=== PATIENT | male | born 1960 | race Caucasian/White ===

== ENCOUNTER 2016-08-20 00:23 | Observation (INO) | payer OTHER ==
[2016-08-20] VITALS (17 sets, daily range): BP systolic 130–163; BP diastolic 86–106
[~2016-08-20] VITALS: Ht 182.9 cm; Wt 100.8 kg
[~2016-08-20 00:23] MED LIST: ASP81TEC PO; ATOR10TA66 PO; ATOR80TA PO; CYCL10TA9 PO; DIGO250T PO; DILT180C PO; DULA0.75 SQ; ENXP80I.8 SC; EZET1TAB27 PO; HYDR-3812 PO; LISI10TA PO; LISI20TA PO; METF-380 PO; METO25TA PO; NTR.4SL SL; OMEG-12 PO; OXYC-197 PO; RNT150T PO; WRF5T PO
[2016-08-20] MEDS ORDERED: TRAM50TA2 PO (00:31)
[2016-08-20] MEDS ORDERED: CITA20TA7 PO (00:31)
[2016-08-20] MEDS ORDERED: NS IV 1000 ML 1,000 ML IV ONE (00:35)
[2016-08-20 00:40] LABS: BASOPHILS % (AUTO) 0 % (0-10); EOSINOPHILS # (AUTO) 0.1 10^3/uL (0.0-0.3); EOSINOPHILS % (AUTO) 1 % (0-10); LYMPHOCYTES # (AUTO) 1.8 X 10^3 (1.0-4.0); LYMPHOCYTES % (AUTO) 13 % (12-44); MEAN CORPUSCULAR HEMOGLOBIN 29 PG (25-34); MEAN CORPUSCULAR HGB CONC 33 G/DL (32-36); MEAN CORPUSCULAR VOLUME 88 FL (80-99); MEAN PLATELET VOLUME 9.9 FL (7.4-10.4); MONOCYTES # (AUTO) 0.6 X 10^3 (0.0-1.0); MONOCYTES % (AUTO) 4 % (0-12); NEUTROPHILS # (AUTO) 11.4 X 10^3 (1.8-7.8); NEUTROPHILS % (AUTO) 82 % (42-75); PLATELET COUNT 318 10^3/uL (130-400); RED BLOOD COUNT 5.38 10^6/uL (4.35-5.85); RED CELL DISTRIBUTION WIDTH 13.1 % (10.0-14.5)
[2016-08-20 00:54] LABS: ALANINE AMINOTRANSFERASE 36 U/L (0-55); ALBUMIN 4.2 G/DL (3.2-4.5); ANION GAP 13 MMOL/L (5-14); ASPARTATE AMINO TRANSFERASE 25 U/L (5-34); BILIRUBIN,TOTAL 0.6 MG/DL (0.1-1.0); BLOOD UREA NITROGEN 17 MG/DL (7-18); BUN/CREATININE RATIO 17; CALCIUM 9.1 MG/DL (8.5-10.1); CARBON DIOXIDE 22 MMOL/L (21-32); CHLORIDE 100 MMOL/L (98-107); CREATININE SERUM 0.98 MG/DL (0.60-1.30); GFR ESTIMATED > 60; GLUCOSE 247 MG/DL (70-105); POTASSIUM 3.8 MMOL/L (3.6-5.0); SALICYLATE < 5.0 MG/DL (5.0-20.0); SODIUM 135 MMOL/L (135-145); TOTAL PROTEIN 7.8 G/DL (6.4-8.2)
[2016-08-20 00:57] LABS: ACETAMINOPHEN < 10 UG/ML (10-30); ALCOHOL < 10 MG/DL (<10)
[2016-08-20 01:45] LABS: BILIRUBIN,URINE NEGATIVE (NEGATIVE); KETONES,URINE 3+ (NEGATIVE); LEUKOCYTE ESTERASE ,URINE 3+ (NEGATIVE); NITRITE,URINE NEGATIVE (NEGATIVE); PH,URINE 6 (5-9); PROTEIN,URINE 2+ (NEGATIVE); UROBILINOGEN,URINE 1 MG/DL (NORMAL)
[2016-08-20] MEDS ORDERED: 1/2 NS IV SOLUTION 1,000 ML IV ONE (02:18)
[2016-08-20] MEDS ORDERED: 1/2 NS IV SOLUTION 1,000 ML IV SCH (02:45)
[2016-08-20] MEDS ORDERED: cefTRIAXone 1 GM (ROCEPHIN) VIAL ONE (02:54)
[2016-08-20] MEDS ORDERED: NS (IVPB) 50 ML ONE (02:55)
[2016-08-20] MEDS ORDERED: cefTRIAXone INJECTION 1,000 MG in NS (IVPB) 50 ML IV SCH (03:00)
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
[2016-08-20 04:26] LABS: BASOPHILS % (AUTO) 0 % (0-10); EOSINOPHILS % (AUTO) 0 % (0-10); LYMPHOCYTES # (AUTO) 1.7 X 10^3 (1.0-4.0); LYMPHOCYTES % (AUTO) 14 % (12-44); MEAN CORPUSCULAR HEMOGLOBIN 29 PG (25-34); MEAN CORPUSCULAR HGB CONC 33 G/DL (32-36); MEAN CORPUSCULAR VOLUME 88 FL (80-99); MEAN PLATELET VOLUME 10.1 FL (7.4-10.4); MONOCYTES # (AUTO) 0.7 X 10^3 (0.0-1.0); MONOCYTES % (AUTO) 6 % (0-12); NEUTROPHILS # (AUTO) 9.9 X 10^3 (1.8-7.8); NEUTROPHILS % (AUTO) 80 % (42-75); PLATELET COUNT 287 10^3/uL (130-400); RED BLOOD COUNT 4.97 10^6/uL (4.35-5.85); RED CELL DISTRIBUTION WIDTH 12.8 % (10.0-14.5); WHITE BLOOD COUNT 12.3 10^3/uL (4.3-11.0)
[2016-08-20 04:45] LABS: ALANINE AMINOTRANSFERASE 32 U/L (0-55); ALBUMIN 3.7 G/DL (3.2-4.5); ANION GAP 10 MMOL/L (5-14); ASPARTATE AMINO TRANSFERASE 21 U/L (5-34); BILIRUBIN,TOTAL 0.5 MG/DL (0.1-1.0); BLOOD UREA NITROGEN 17 MG/DL (7-18); BUN/CREATININE RATIO 21; CALCIUM 8.5 MG/DL (8.5-10.1); CARBON DIOXIDE 22 MMOL/L (21-32); CHLORIDE 102 MMOL/L (98-107); GFR ESTIMATED > 60; GLUCOSE 211 MG/DL (70-105); MAGNESIUM 1.9 MG/DL (1.8-2.4); PHOSPHORUS 2.5 MG/DL (2.3-4.7); POTASSIUM 4.2 MMOL/L (3.6-5.0); SODIUM 134 MMOL/L (135-145); TOTAL PROTEIN 6.8 G/DL (6.4-8.2)
[2016-08-20] MEDS: inSUlin (REGULAR) HUMAN 1 UNIT/0.01 ML (CHARGE PER UNIT) SC SCH ×2 (05:37→13:08)
[2016-08-20] MEDS ORDERED: KCL 20 MEQ TAB (K-DUR) PO SCH (06:00)
[2016-08-20] MEDS ORDERED: MAGNESIUM 1 GM/100 ML IVPB 100 ML IV SCH (06:00)
[2016-08-20] MEDS ORDERED: POTASSIUM CL 10MEQ/50ML IVPB 50 ML IV SCH (06:00)
[2016-08-20] MEDS ORDERED: LISI-552 PO (08:10)
[2016-08-20] MEDS ORDERED: RT-ALBUINH INH (08:10)
[2016-08-20] MEDS ORDERED: ONDANSETRON 4 MG/2 ML (SDV) Z0FRAN IVP PRN (08:45)
[2016-08-20] MEDS ORDERED: MULT-35 PO (09:05)
--- NOTE | 2016-08-20 11:45 | Discharge Instructions ---
Discharge [facility] Discharge Medications Continued Medications: Albuterol Sulfate (Proventil Hfa) 6.7 Gm Hfa.aer.ad 2 PUFF INH Q4H PRN for SHORTNESS OF BREATH, INHALER Atorvastatin Calcium (Atorvastatin Calcium) 10 Mg Tablet 10 MG PO HS, TAB Lisinopril (Lisinopril) 20 Mg Tablet 20 MG PO DAILY, TAB Metformin Hcl (Metformin 1000 Mg) 1,000 Mg Tablet 1000 MG PO BID, TAB Multivitamin (Daily Multiple Vitamin) 1 Each Tablet 1 TAB PO DAILY, TAB Discontinued Medications: Tramadol HCl (Tramadol HCl) 50 Mg Tablet 50 MG PO BID PRN for PAIN, TAB Patient Instructions Goal/Follow Up Appt: Follow up with 08/23 at 8:40 am with Torsten Flower and on 08/28 at 9:20 am with Polina Ly. Return to [facility] For: Suicidal thoughts, seizures, vomiting Activity & Diet Discharge Diet: ADA Diet Copy Copies To 1: CESAR Cisse BETHANY N MD Aug 20, 2016 11:45 am
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
[2016-08-21] MEDS ORDERED: cefTRIAXone INJECTION 1,000 MG in NS (IVPB) 50 ML IV SCH (03:00)
== END 2016-08-20 11:42 | disposition home or self-care (01) ==
LOC: EDUNIT# 00:23 → ER 00:25 → ICU 01:25 → UNDOADMOB 01:25 → ICU 02:11 → UNDODISOB 14:20
PROVIDERS: ADMIT Family Medicine; ATTEND Family Medicine
DX: T40.4X2A Poisoning by other synthetic narcotics, intentional self-harm, initial encounter (principal); F32.9 Major depressive disorder, single episode, unspecified; F41.9 Anxiety disorder, unspecified; N39.0 Urinary tract infection, site not specified; I10 Essential (primary) hypertension; E78.5 Hyperlipidemia, unspecified; E11.9 Type 2 diabetes mellitus without complications; I48.91 Unspecified atrial fibrillation; K21.9 Gastro-esophageal reflux disease without esophagitis; F12.90 Cannabis use, unspecified, uncomplicated; Z79.84 Long term (current) use of oral hypoglycemic drugs
CPT/HCPCS: 36415; 80053; 80306; 80320; 80329; 81000; 83735; 84100; 84443; 85025; 87081; 87088; 93005; 93041; 96360; G0378

== ENCOUNTER → 2016-09-01 | Outpatient (CLI) | payer OTHER ==
[~2016-09-01] MED LIST changes: +CITA20TA7 PO; +LISI-552 PO; +MULT-35 PO; +RT-ALBUINH INH; +TRAM50TA2 PO
--- NOTE | 2016-09-01 10:29 | Diagnostic Imaging Report ---
PROCEDURE: MR imaging cervical spine without contrast. TECHNIQUE: Multiplanar, multisequence MR imaging of the cervical spine was performed without contrast. INDICATION: Neck pain 2-3 months duration with left arm numbness intermittent. No priors. The cervical spinal cord itself reveals a normal volume and normal morphology and normal signal intensity. There is disc desiccation, loss of disc stature, disc bulge and endplate osteophytes, uncovertebral joint spurring and facet arthrosis at multiple levels most advanced at the C4-C5 level. The craniocervical relationship at the C1-C2 level and C2-C3 levels in discs appeared normal. C3-4: Eccentric disc bulge on the right effaces the right ventral thecal sac. There is some right-sided uncovertebral joint spurring. There is a mild degree of right foraminal narrowing, the left foramen and central canal showed no substantial narrowing. C4-5: Posterior osteophyte disc material indents and effaces the ventral thecal sac. There is trace residual CSF dorsal to the cord at this level with at least moderate severity of central canal stenosis, the AP canal diameter narrowed to measure about 7-1/2 mm. There is at least moderate severity of left and mild severity of right-sided neural foraminal stenosis at this level. C5-6: Osteophyte disc material slightly indents the ventral thecal sac. There is mild spinal canal stenosis but no substantial foraminal narrowing. C6-C7: Unremarkable. IMPRESSION: 1. Moderate to severe canal stenosis C4-C5 with left greater than right foraminal narrowing. C5-C6 canal and foraminal stenoses noted less severe. 2. Normal alignment, normal cord. No acute bony abnormality. Dictated by: Dictated on workstation # [id number]
== END ==
LOC: RAD 09:21
PROVIDERS: ATTEND Nurse Practitioner Family
DX: M48.02 Spinal stenosis, cervical region (principal)
CPT/HCPCS: 72141

== ENCOUNTER 2016-09-04 11:03 | Emergency (ER) | payer OTHER ==
[~2016-09-04] VITALS: Ht 182.9 cm; Wt 98.0 kg
--- NOTE | 2016-09-04 11:14 | ED Cardiac General ---
History of Present Illness General Stated Complaint: IRR HEART RATE Source: patient, RN notes reviewed Exam Limitations: no limitations History of Present Illness Time seen by provider: 11:14 Initial Comments As above and below. Patient apparently had an appt. @ [facility] this AM and was found to be in an irregular rhythm and referred here. Denies any SOA, or chest pain. Doesn't remember ever having an irregular heart beat before. Timing/Duration: other (unknown) Activities at Onset: other (unknown) Prior CP/Workup: cardiac cath, echocardiography, stress test Modifying Factors: improves with other (none known) NTG SL ASSISTANT FOOD SERVICE DIRECTOR: No ASA po ASSISTANT FOOD SERVICE DIRECTOR: No Associated Systoms: Denies Symptoms Allergies and Home Medications Allergies Coded Allergies: sitagliptin (Verified Allergy, Unknown, 08/20/16) Home Medications Albuterol Sulfate 6.7 Gm Hfa.aer.ad, 2 PUFF INH Q4H PRN for SHORTNESS OF BREATH, (Reported) Atorvastatin Calcium 10 Mg Tablet, 10 MG PO HS, (Reported) Lisinopril 20 Mg Tablet, 20 MG PO DAILY, (Reported) Metformin Hcl 1,000 Mg Tablet, 1,000 MG PO BID, (Reported) Multivitamin 1 Each Tablet, 1 TAB PO DAILY, (Reported) Review of Systems Constitutional: see HPI All Other Systems Reviewed Negative Unless Noted: Yes (Negative excepted noted.) Past Rrqyfec-Zksmwb-Mfvscp Hx Patient Social History Recent Hopitalizations: No Immunizations Up To Date Date of Pneumonia Vaccine: Feb 11, 2012 Seasonal Allergies Seasonal Allergies: No Surgeries HX Surgeries: Yes Surgeries: Adenoidectomy, Gallbladder, Orthopedic, Tonsillectomy Respiratory Hx Respiratory Disorders: No Cardiovascular Hx Cardiac Disorders: Yes (HX OF A-FIB, NO LONGER REQUIRES MEDS) Cardiac Disorders: Atrial Fibrillation, High Cholesterol, Hypertension Neurological Hx Neurological Disorders: No Reproductive System Hx Reproductive Disorders: No Sexually Transmitted Disease: No HIV/AIDS: No Genitourinary Hx Genitourinary Disorders: No Gastrointestinal Hx Gastrointestinal Disorders: Yes Gastrointestinal Disorders: Gastroesophageal Reflux, Gall Bladder Disease Musculoskeletal Hx Musculoskeletal Disorders: Yes Musculoskeletal Disorders: Arthritis, Back Injury, Chronic Back Pain Endocrine Hx Endocrine Disorders: Yes Endocrine Disorders: Diabetes, Non-Insulin dep HEENT HX ENT Disorders: Yes (GLASSES, ALL TEETH REMOVED) Cancer Hx Cancer: No Psychosocial Hx Psychiatric Problems: Yes Behavioral Health Disorders: Depression Integumentary HX Skin/Integumentary Disorder: No Blood Transfusions Hx Blood Disorders: No Family Medical History Significant Family History: No Pertinent Family Hx Physical Exam Vital Signs Vital Sign - Last 12Hours 09/04/16 11:03 Temp 97.0 Pulse 93 Resp 12 B/P (MAP) 157/74 Pulse Ox 95 Capillary Refill : General Appearance: No Apparent Distress, WD/WN, Obese Respiratory: Lungs Clear, No Respiratory Distress Cardiovascular: Regular Rate, Rhythm, Extra Beats Rectal: Deferred Neurologic/Psychiatric: Alert, Oriented x3, No Motor/Sensory Deficits, Normal Mood/Affect Skin: Warm/Dry Progress/Results/Core Measures Results/Orders Lab Results Laboratory Tests Test 09/04/16 11:16 09/04/16 11:35 Range/Units White Blood Count 12.6 H 4.3-11.0 10^3/uL Red Blood Count 5.19 4.35-5.85 10^6/uL Hemoglobin 15.3 13.3-17.7 G/DL Hematocrit 45 40-54 % Mean Corpuscular Volume 87 80-99 FL Mean Corpuscular Hemoglobin 30 25-34 PG Mean Corpuscular Hemoglobin Concent 34 32-36 G/DL Red Cell Distribution Width 12.5 10.0-14.5 % Platelet Count 334 130-400 10^3/uL Mean Platelet Volume 9.8 7.4-10.4 FL Neutrophils (%) (Auto) 80 H 42-75 % Lymphocytes (%) (Auto) 15 12-44 % Monocytes (%) (Auto) 4 0-12 % Eosinophils (%) (Auto) 1 0-10 % Basophils (%) (Auto) 0 0-10 % Neutrophils # (Auto) 10.1 H 1.8-7.8 X 10^3 Lymphocytes # (Auto) 1.9 1.0-4.0 X 10^3 Monocytes # (Auto) 0.5 0.0-1.0 X 10^3 Eosinophils # (Auto) 0.1 0.0-0.3 10^3/uL Basophils # (Auto) 0.0 0.0-0.1 10^3/uL Sodium Level 131 L 135-145 MMOL/L Potassium Level 4.6 3.6-5.0 MMOL/L Chloride Level 98 98-107 MMOL/L Carbon Dioxide Level 23 21-32 MMOL/L Anion Gap 10 5-14 MMOL/L Blood Urea Nitrogen 24 H 7-18 MG/DL Creatinine 0.89 0.60-1.30 MG/DL Estimat Glomerular Filtration Rate > 60 BUN/Creatinine Ratio 27 Glucose Level 286 H 70-105 MG/DL Calcium Level 9.2 8.5-10.1 MG/DL Magnesium Level 1.7 L 1.8-2.4 MG/DL Total Bilirubin 0.4 0.1-1.0 MG/DL Aspartate Amino Transf (AST/SGOT) 17 5-34 U/L Alanine Aminotransferase (ALT/SGPT) 28 0-55 U/L Alkaline Phosphatase 66 40-136 U/L Troponin I < 0.30 <0.30 NG/ML B-Type Natriuretic Peptide 60.0 <100.0 PG/ML Total Protein 6.8 6.4-8.2 G/DL Albumin 3.8 3.2-4.5 G/DL Thyroid Stimulating Hormone (TSH) 1.36 0.35-4.94 UIU/ML Urine Opiates Screen NEGATIVE NEGATIVE Urine Oxycodone Screen NEGATIVE NEGATIVE Urine Methadone Screen NEGATIVE NEGATIVE Urine Propoxyphene Screen NEGATIVE NEGATIVE Urine Barbiturates Screen NEGATIVE NEGATIVE Ur Tricyclic Antidepressants Screen NEGATIVE NEGATIVE Urine Phencyclidine Screen NEGATIVE NEGATIVE Urine Amphetamines Screen NEGATIVE NEGATIVE Urine Methamphetamines Screen NEGATIVE NEGATIVE Urine Benzodiazepines Screen NEGATIVE NEGATIVE Urine Cocaine Screen NEGATIVE NEGATIVE Urine Cannabinoids Screen POSITIVE H NEGATIVE My Orders Orders - MARYLOU MATA DO Saline Lock/Iv-Start (09/04/16 11:18) Ekg Tracing (09/04/16 11:18) BNP (09/04/16 11:18) Cbc With Automated Diff (09/04/16 11:18) Comprehensive Metabolic Panel (09/04/16 11:18) Drug Screen Stat (Urine) (09/04/16 11:18) Magnesium (09/04/16 11:18) Thyroid Stimulating Hormone (09/04/16 11:18) Troponin I (09/04/16 11:18) Chest 1 View, Ap/Pa Only (09/04/16 11:18) Magnesium Oxide Tablet (Mag Ox Tablet) (09/04/16 12:15) Medications Given in ED Current Medications Medications Dose Ordered Sig/Kameron Route Start Time Stop Time Status Last Admin Dose Admin Magnesium Oxide 400 mg ONCE ONCE PO 09/04/16 12:15 09/04/16 12:16 DC 09/04/16 12:17 400 MG Vital Signs/I&O Vital Sign - Last 12Hours 09/04/16 11:03 Temp 97.0 Pulse 93 Resp 12 B/P (MAP) 157/74 Pulse Ox 95 Progress Note : Progress Note Spoke c/ Dr. Richardson. Will follow patient up in his office outpatient. ECG Initial ECG Impression Date: Sep 04, 2016 Initial ECG Impression Time: 11:11 Initial ECG Rhythm: Normal Sinus Initial ECG Comparisson: No Previous ECG Available Comment (+) Bigeminy Diagnostic Imaging Diagonstic Imaging: Xray Plain Films/CT/US/NM/MRI: chest (nothing acute per radiologist) Departure Impression Impression: Primary Impression: Bigeminal rhythm Disposition: HOME, SELF-CARE Condition: Stable Departure-Patient Inst. Decision time for Depature: 12:17 Referrals: [facility] (PCP/Family) Primary Care Physician XIN JOSHUA MD Patient Instructions: Palpitations (DC) MARYLOU MATA DO Sep 04, 2016 11:14
[2016-09-04 11:24] LABS: BASOPHILS % (AUTO) 0 % (0-10); EOSINOPHILS # (AUTO) 0.1 10^3/uL (0.0-0.3); EOSINOPHILS % (AUTO) 1 % (0-10); LYMPHOCYTES # (AUTO) 1.9 X 10^3 (1.0-4.0); LYMPHOCYTES % (AUTO) 15 % (12-44); MEAN CORPUSCULAR HEMOGLOBIN 30 PG (25-34); MEAN CORPUSCULAR HGB CONC 34 G/DL (32-36); MEAN CORPUSCULAR VOLUME 87 FL (80-99); MEAN PLATELET VOLUME 9.8 FL (7.4-10.4); MONOCYTES # (AUTO) 0.5 X 10^3 (0.0-1.0); MONOCYTES % (AUTO) 4 % (0-12); NEUTROPHILS # (AUTO) 10.1 X 10^3 (1.8-7.8); NEUTROPHILS % (AUTO) 80 % (42-75); PLATELET COUNT 334 10^3/uL (130-400); RED BLOOD COUNT 5.19 10^6/uL (4.35-5.85); RED CELL DISTRIBUTION WIDTH 12.5 % (10.0-14.5); WHITE BLOOD COUNT 12.6 10^3/uL (4.3-11.0)
--- NOTE | 2016-09-04 11:41 | Diagnostic Imaging Report ---
INDICATION: Arrhythmia EXAMINATION: Portable chest 11:34 AM Heart size and pulmonary vascularity are normal. Lungs are clear. There are no effusions or pneumothoraces. IMPRESSION: Negative chest. Dictated by: Dictated on workstation # [id number]
[2016-09-04 11:48] LABS: ALANINE AMINOTRANSFERASE 28 U/L (0-55); ALBUMIN 3.8 G/DL (3.2-4.5); ANION GAP 10 MMOL/L (5-14); ASPARTATE AMINO TRANSFERASE 17 U/L (5-34); BILIRUBIN,TOTAL 0.4 MG/DL (0.1-1.0); BLOOD UREA NITROGEN 24 MG/DL (7-18); BUN/CREATININE RATIO 27; CALCIUM 9.2 MG/DL (8.5-10.1); CARBON DIOXIDE 23 MMOL/L (21-32); CHLORIDE 98 MMOL/L (98-107); CREATININE SERUM 0.89 MG/DL (0.60-1.30); GFR ESTIMATED > 60; GLUCOSE 286 MG/DL (70-105); MAGNESIUM 1.7 MG/DL (1.8-2.4); POTASSIUM 4.6 MMOL/L (3.6-5.0); SODIUM 131 MMOL/L (135-145); TOTAL PROTEIN 6.8 G/DL (6.4-8.2)
[2016-09-04 12:08] LABS: THYROID STIMULATING HORMONE 1.36 UIU/ML (0.35-4.94); TROPONIN I < 0.30 NG/ML (<0.30)
[2016-09-04] MEDS ORDERED: MAGNESIUM OXIDE (MAG-OX)400 MG TAB PO ONE (12:15)
[2016-09-04 12:30] VITALS: BP 137/79
== END 2016-09-04 12:30 | disposition home or self-care (01) ==
LOC: EDUNIT# 11:03 → ER 11:05
DX: R00.8 Other abnormalities of heart beat (principal); I10 Essential (primary) hypertension; E11.9 Type 2 diabetes mellitus without complications; Z79.84 Long term (current) use of oral hypoglycemic drugs; Z79.899 Other long term (current) drug therapy
CPT/HCPCS: 36415; 71010; 80053; 80306; 83735; 83880; 84443; 84484; 85025; 93005

== ENCOUNTER 2016-09-17 13:14 | Outpatient (RCR) | payer OTHER | END 2016-12-16 | disposition home or self-care (01) | LOC: CARD 13:14 | PROVIDERS: ATTEND Internal Medicine Cardiovascular Disease | DX: I25.10 Atherosclerotic heart disease of native coronary artery without angina pectoris (principal); I50.9 Heart failure, unspecified; I10 Essential (primary) hypertension; E78.5 Hyperlipidemia, unspecified; R94.31 Abnormal electrocardiogram [ECG] [EKG] ==

== ENCOUNTER → 2016-10-04 | Outpatient (CLI) | payer OTHER ==
--- NOTE | 2016-10-04 14:06 | Diagnostic Imaging Report ---
PROCEDURE: MRI left upper extremity without contrast. TECHNIQUE: Multiplanar, multisequence non contrast-enhanced MRI of the left upper extremity was accomplished. INDICATION: Left shoulder pain. FINDINGS: There is no os acromiale or Hill-Sachs deformity. The acromioclavicular joint demonstrates osteoarthritic changes with inferior osteophytes that have an impression upon the myotendinous junction of the supraspinatus. There is a high-grade partial tear involving the anterior margin of the supraspinatus tendon with intrasubstance and undersurface partial tears along the posterior fibers. Background tendinosis and intrasubstance partial tear in the infraspinatus is seen. The subscapular tendon appears intact. There is increased signal seen within the long head biceps tendon and the bicipital groove suggestive of a partial tear. No subluxation or dislocation of this tendon. The labrum demonstrates increased signal in its superior segment, which might relate to degeneration or tear. The muscle bulk and signal around the shoulder appear unremarkable. The bone marrow demonstrates mild reactive degenerative changes around the acromioclavicular joint with no significant focal lesion seen otherwise. Minimal amount of fluid is seen in the subacromial subdeltoid bursa. IMPRESSION: 1. Acromioclavicular osteoarthritis with inferior osteophytes seen that has an impression upon the myotendinous junction of the supraspinatus. 2. Partial tears in the infraspinatus and supraspinatus tendons. A high-grade partial tear with minimal remaining intact fibers is seen in the anterior aspect of the supraspinatus tendon. 3. Nondisplaced partial tear in the long head of biceps tendon within the bicipital groove. 4. Increased signal in the superior aspect of the labrum may relate to degeneration or SLAP tear. Dictated by: Dictated on workstation # [id number]
== END ==
LOC: RAD 12:53
PROVIDERS: ATTEND Nurse Practitioner Family
DX: M19.012 Primary osteoarthritis, left shoulder (principal)
CPT/HCPCS: 73221

== ENCOUNTER → 2016-10-17 | Outpatient (CLI) | payer OTHER ==
[~2016-10-17] MED LIST changes: +CATHETER FLUSH 10 ML SYR IV PRN
== END ==
LOC: CARD 12:17
PROVIDERS: ATTEND Internal Medicine Cardiovascular Disease
DX: I25.10 Atherosclerotic heart disease of native coronary artery without angina pectoris (principal); R94.31 Abnormal electrocardiogram [ECG] [EKG]; I11.0 Hypertensive heart disease with heart failure; I50.9 Heart failure, unspecified; E78.5 Hyperlipidemia, unspecified

== ENCOUNTER → 2016-11-26 | Outpatient (CLI) | payer OTHER ==
[~2016-11-26] MED LIST changes: -CATHETER FLUSH 10 ML SYR IV PRN
--- NOTE | 2016-11-26 13:37 | Diagnostic Imaging Report ---
EXAMINATION: Two views of the left knee and two views of the right knee. INDICATION: Osteoarthritis. Knee pain. FINDINGS: There are osteophytes seen in the patellofemoral compartments bilaterally with subchondral sclerosis and minimal subchondral lucencies seen. The medial and lateral compartments demonstrate minimal osteophyte formation more prominent on the left side. There is no significant joint space narrowing in the medial or lateral compartment. There is question of joint space narrowing in the patellofemoral compartments which can be better evaluated with sunrise views. No fracture or dislocation seen. IMPRESSION: Overall relatively mild osteoarthritis changes more prominent in the patellofemoral compartments bilaterally. Dictated by: Dictated on workstation # [id number]
== END ==
LOC: RAD 09:41
DX: M25.562 Pain in left knee (principal)

== ENCOUNTER 2016-12-10 09:50 | Outpatient (RCR) | payer OTHER | END 2017-01-16 09:13 | disposition home or self-care (01) | PROVIDERS: ATTEND Nurse Practitioner | DX: M75.112 Incomplete rotator cuff tear or rupture of left shoulder, not specified as traumatic (principal) ==

== ENCOUNTER 2017-03-30 21:09 | Outpatient (CLI) | payer OTHER | END 2017-03-31 06:40 | disposition home or self-care (01) | LOC: SLEEP 21:09 | PROVIDERS: ATTEND Nurse Practitioner Family | DX: G47.30 Sleep apnea, unspecified (principal); R06.83 Snoring; I10 Essential (primary) hypertension | CPT/HCPCS: 95810 ==

== ENCOUNTER 2017-05-02 16:50 | Emergency (ER) | payer SELFPAY ==
[~2017-05-02] VITALS: Ht 177.8 cm; Wt 98.4 kg
--- OUTSIDE RECORDS SUMMARY | 2017-05-02 16:56 | XMS REPORT ---
Author Author Marlon ALEKSANDAR [facility] Address [address] [place] [address] Care Team Providers Care Right Of Way Supervisor Name Role Phone juanALEKSANDAR Gray Unavailable PROBLEMS Type Condition ICD9-CM Code [id number] Code Onset Dates Condition Status SNOMED Code Problem Essential hypertension I10 Active 71682842 Problem Mood swings F39 Active 99147329 Problem Hyperlipidemia, unspecified hyperlipidemia type E78.5 Active 70708071 Problem Incomplete tear of left rotator cuff M75.112 Active 283496553 Problem Major depressive disorder with single episode, in partial remission F32.4 Active 05845209 Problem Major depressive disorder, recurrent episode, moderate F33.1 Active 634224826 Problem Anxiety, generalized F41.1 Active 70704897 Problem Disassociation F48.1 Active 482790470 Problem Seasonal allergic rhinitis due to pollen J30.1 Active 22505372 Problem Degenerative disc disease, 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 Active 17715145 Problem Degenerative disc disease, cervical M50.30 Active 63215605 Problem Tear of infraspinatus tendon, left, initial encounter S46.812A Active 3062971 Problem Nontraumatic tear of left supraspinatus tendon M75.102 Active 419497777 Problem Erectile dysfunction due to diseases classified elsewhere N52.1 Active 667688663 Problem Pain in left knee M25.562 Active 93437720 Problem Routine health maintenance Z00.00 Active 428511652 Problem Pain in right knee M25.561 Active 00207442 Problem Type 2 diabetes mellitus without complication, without long-term current use of insulin E11.9 Active 457396629 Problem Other chronic pain G89.29 Active 22312035 ALLERGIES Substance Reaction Event Type Date Status Januvia rash Drug Allergy Jun, Active SOCIAL HISTORY Never Assessed PLAN OF CARE Activity Details Follow Up 6 Weeks Reason: VITAL SIGNS Height 71 in 2016-06-28 Weight 218.2 lbs 2016-06-28 Heart Rate 76 bpm 2016-06-28 Respiratory Rate 20 2016-06-28 BMI 30.43 kg/m2 2016-06-28 Blood pressure systolic 140 mmHg 2016-06-28 Blood pressure diastolic 86 mmHg 2016-06-28 MEDICATIONS Medication Instructions Dosage Frequency Start Date End Date Duration Status Atorvastatin Calcium 10 mg Orally Once a day 1 tablet 24h 90 days Active Citalopram Hydrobromide 20 MG Orally daily 0.5 tablet every am X 2 weeks then 1 tablet every am 24h 16 Jun, 2016 30 day(s) Active Metformin HCl 1000 MG Orally Twice a day 1 tablet with meals 12h 30 days Active Lisinopril 20 mg Orally Once a day 1 tablet 24h 90 days Active Mens One Daily Active Tramadol HCl 50 mg Orally 2 times a day 1 tablet as needed 12h Jun, Jul, 30 days Active Indomethacin 25 MG Orally Twice a day 1 capsule with food or milk 12h Jun, Jul, 30 day(s) Active RESULTS No Results PROCEDURES No Known procedures IMMUNIZATIONS No Known Immunizations MEDICAL (GENERAL) HISTORY Type Description Date Medical History hypertension Medical History hyperlipidemia Medical History diabetes mellitus Medical History asthma Medical History 11/2016- Holter monitor- SR w/ frequent PVC's, V. Bigemini, occ. V. couplet Surgical History carpal tunnel release--Bilateral Surgical History orthopedic surgery--right elbow tendon repair Surgical History Back surgery--trimming of disc at L4-L5 1992 Surgical History Disc replacement -Lumbar Spine 2009 Surgical History tonsillectomy Surgical History cholecystectomy Hospitalization History Surgeries Only Hospitalization History Denies any past psychiatric hospitalization
--- OUTSIDE RECORDS SUMMARY | 2017-05-02 16:56 | XMS REPORT ---
Author Author MARI SALEH Organization [facility] Address [address] [place] [address] Care Team Providers Care Air Analysis Technician Name Role Phone THERESEMARI BERRIOS Unavailable PROBLEMS Type Condition ICD9-CM Code [id number] Code Onset Dates Condition Status SNOMED Code Problem Essential hypertension I10 Active 45508964 Problem Mood swings F39 Active 82734563 Problem Hyperlipidemia, unspecified hyperlipidemia type E78.5 Active 37305958 Problem Incomplete tear of left rotator cuff M75.112 Active 966406543 Problem Major depressive disorder with single episode, in partial remission F32.4 Active 49164451 Problem Major depressive disorder, recurrent episode, moderate F33.1 Active 642556174 Problem Anxiety, generalized F41.1 Active 21178252 Problem Disassociation F48.1 Active 614695214 Problem Seasonal allergic rhinitis due to pollen J30.1 Active 46795563 Problem Degenerative disc disease, 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 Active 89827373 Problem Degenerative disc disease, cervical M50.30 Active 71524876 Problem Tear of infraspinatus tendon, left, initial encounter S46.812A Active 3964509 Problem Nontraumatic tear of left supraspinatus tendon M75.102 Active 045636450 Problem Erectile dysfunction due to diseases classified elsewhere N52.1 Active 284913035 Problem Pain in left knee M25.562 Active 17027237 Problem Routine health maintenance Z00.00 Active 052881590 Problem Pain in right knee M25.561 Active 51787587 Problem Type 2 diabetes mellitus without complication, without long-term current use of insulin E11.9 Active 856330375 Problem Other chronic pain G89.29 Active 87530100 ALLERGIES Unknown Allergies SOCIAL HISTORY No smoking Hx information available PLAN OF CARE Activity Details Follow Up 3 Weeks Reason:Depression, anxiety VITAL SIGNS MEDICATIONS Unknown Medications RESULTS No Results PROCEDURES Procedure Date Ordered Related Diagnosis Body Site Psych diagnostic evaluation, new patient Jun 13, 2016 IMMUNIZATIONS No Known Immunizations
--- OUTSIDE RECORDS SUMMARY | 2017-05-02 16:56 | XMS REPORT ---
Author Author PEDRO PABLO Nichols Organization [facility] Address [address] [place] [address] Care Team Providers Care Microfiche Duplicator Name Role Phone meganPEDRO PABLO ZHONG Unavailable PROBLEMS Type Condition ICD9-CM Code [id number] Code Onset Dates Condition Status SNOMED Code Problem Essential hypertension I10 Active 93563398 Problem Mood swings F39 Active 30963144 Problem Hyperlipidemia, unspecified hyperlipidemia type E78.5 Active 83120131 Problem Incomplete tear of left rotator cuff M75.112 Active 659457730 Problem Major depressive disorder with single episode, in partial remission F32.4 Active 54856775 Problem Major depressive disorder, recurrent episode, moderate F33.1 Active 714729957 Problem Anxiety, generalized F41.1 Active 90041013 Problem Disassociation F48.1 Active 233252461 Problem Seasonal allergic rhinitis due to pollen J30.1 Active 22169923 Problem Degenerative disc disease, 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 Active 56929987 Problem Degenerative disc disease, cervical M50.30 Active 37943743 Problem Tear of infraspinatus tendon, left, initial encounter S46.812A Active 7296683 Problem Nontraumatic tear of left supraspinatus tendon M75.102 Active 190151116 Problem Erectile dysfunction due to diseases classified elsewhere N52.1 Active 723250311 Problem Pain in left knee M25.562 Active 49247729 Problem Routine health maintenance Z00.00 Active 566122587 Problem Pain in right knee M25.561 Active 45355506 Problem Type 2 diabetes mellitus without complication, without long-term current use of insulin E11.9 Active 625460644 Problem Other chronic pain G89.29 Active 67332990 ALLERGIES No Information SOCIAL HISTORY Never Assessed PLAN OF CARE VITAL SIGNS MEDICATIONS Unknown Medications RESULTS No Results PROCEDURES No Known procedures IMMUNIZATIONS No Known Immunizations MEDICAL (GENERAL) HISTORY Type Description Date Medical History hypertension Medical History hyperlipidemia Medical History diabetes mellitus Medical History asthma Medical History 11/2016- Holter monitor- SR w/ frequent PVC's, Santosh Eric, occ. V. couplet Surgical History carpal tunnel release--Bilateral Surgical History orthopedic surgery--right elbow tendon repair Surgical History Back surgery--trimming of disc at L4-L5 1992 Surgical History Disc replacement -Lumbar Spine 2009 Surgical History tonsillectomy Surgical History cholecystectomy Hospitalization History Surgeries Only Hospitalization History Denies any past psychiatric hospitalization
--- OUTSIDE RECORDS SUMMARY | 2017-05-02 16:56 | XMS REPORT ---
Author Author BRANT DENT Organization [facility] Address [address] [place] [address] Care Team Providers Care Field Technical Assistant Name Role Phone DENTBRANT White Unavailable PROBLEMS Type Condition ICD9-CM Code [id number] Code Onset Dates Condition Status SNOMED Code Problem Essential hypertension I10 Active 02138852 Problem Mood swings F39 Active 17759882 Problem Hyperlipidemia, unspecified hyperlipidemia type E78.5 Active 14377427 Problem Incomplete tear of left rotator cuff M75.112 Active 369098595 Problem Major depressive disorder with single episode, in partial remission F32.4 Active 13078815 Problem Major depressive disorder, recurrent episode, moderate F33.1 Active 985155088 Problem Anxiety, generalized F41.1 Active 02942404 Problem Disassociation F48.1 Active 439479082 Problem Seasonal allergic rhinitis due to pollen J30.1 Active 87589094 Problem Degenerative disc disease, 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 Active 15768656 Problem Degenerative disc disease, cervical M50.30 Active 73131239 Problem Tear of infraspinatus tendon, left, initial encounter S46.812A Active 8026294 Problem Nontraumatic tear of left supraspinatus tendon M75.102 Active 376833624 Problem Erectile dysfunction due to diseases classified elsewhere N52.1 Active 687050321 Problem Pain in left knee M25.562 Active 47906040 Problem Routine health maintenance Z00.00 Active 186103893 Problem Pain in right knee M25.561 Active 19047095 Problem Type 2 diabetes mellitus without complication, without long-term current use of insulin E11.9 Active 888603087 Problem Other chronic pain G89.29 Active 33305605 ALLERGIES No Information SOCIAL HISTORY Never Assessed PLAN OF CARE VITAL SIGNS MEDICATIONS Medication Instructions Dosage Frequency Start Date End Date Duration Status PredniSONE 20 mg Orally Once a day 1 tablet 24h Jun, Jun, 07 days Active RESULTS No Results PROCEDURES No Known [...]
--- OUTSIDE RECORDS SUMMARY | 2017-05-02 16:57 | XMS REPORT ---
Author Author BRANT DENT Organization [facility] Address [address] [place] [address] Care Team Providers Care Water Resources Technical Officer Name Role Phone DENTBRANT White Unavailable PROBLEMS Type Condition ICD9-CM Code [id number] Code Onset Dates Condition Status SNOMED Code Problem Essential hypertension I10 Active 84663769 Problem Mood swings F39 Active 70085334 Problem Hyperlipidemia, unspecified hyperlipidemia type E78.5 Active 61167880 Problem Incomplete tear of left rotator cuff M75.112 Active 997376772 Problem Major depressive disorder with single episode, in partial remission F32.4 Active 46996506 Problem Major depressive disorder, recurrent episode, moderate F33.1 Active 814291820 Problem Anxiety, generalized F41.1 Active 52637380 Problem Disassociation F48.1 Active 264978944 Problem Seasonal allergic rhinitis due to pollen J30.1 Active 31584990 Problem Degenerative disc disease, 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 Active 90303317 Problem Degenerative disc disease, cervical M50.30 Active 43319925 Problem Tear of infraspinatus tendon, left, initial encounter S46.812A Active 0806875 Problem Nontraumatic tear of left supraspinatus tendon M75.102 Active 248863226 Problem Erectile dysfunction due to diseases classified elsewhere N52.1 Active 230186027 Problem Pain in left knee M25.562 Active 52962779 Problem Routine health maintenance Z00.00 Active 483054291 Problem Pain in right knee M25.561 Active 52479880 Problem Type 2 diabetes mellitus without complication, without long-term current use of insulin E11.9 Active 800945336 Problem Other chronic pain G89.29 Active 99345119 ALLERGIES Substance Reaction Event Type Date Status Januvia rash Drug Allergy Jun, Active SOCIAL HISTORY Never Assessed PLAN OF CARE Activity Details Follow Up 5 weeks Reason:CHM/DM VITAL SIGNS Height 71 in 2016-06-13 Weight 211 lbs 2016-06-13 Temperature 98.6 degrees Fahrenheit 2016-06-13 Heart Rate 90 bpm 2016-06-13 Respiratory Rate 20 2016-06-13 BMI 29.43 kg/m2 2016-06-13 Blood pressure systolic 138 mmHg 2016-06-13 Blood pressure diastolic 76 mmHg 2016-06-13 MEDICATIONS Medication Instructions Dosage Frequency Start Date End Date Duration Status Indomethacin 25 MG Orally Twice a day 1 capsule with food or milk 12h Jun, Jul, 30 day(s) Active Glucocard Expression Test - In Vitro 3 times a day as directed 8h Apr, Active Metformin HCl 1000 MG Orally Twice a day 1 tablet with meals 12h 30 days Active Tramadol HCl 50 mg Orally 2 times a day 1 tablet as needed 12h Jun, Jul, 30 days Active Atorvastatin Calcium 10 mg Orally Once a day 1 tablet 24h 90 days Active Lisinopril 20 mg Orally Once a day 1 tablet 24h 90 days Active RESULTS No Results PROCEDURES No [...]
--- OUTSIDE RECORDS SUMMARY | 2017-05-02 16:57 | XMS REPORT ---
Author Author BRANT DENT Organization [facility] Address [address] [place] [address] Care Team Providers Care Remnant Sorter Name Role Phone DENTBRANT White Unavailable PROBLEMS Type Condition ICD9-CM Code [id number] Code Onset Dates Condition Status SNOMED Code Problem Essential hypertension I10 Active 73887243 Problem Mood swings F39 Active 85154177 Problem Hyperlipidemia, unspecified hyperlipidemia type E78.5 Active 77521845 Problem Incomplete tear of left rotator cuff M75.112 Active 688784098 Problem Major depressive disorder with single episode, in partial remission F32.4 Active 58117388 Problem Major depressive disorder, recurrent episode, moderate F33.1 Active 553027923 Problem Anxiety, generalized F41.1 Active 89106172 Problem Disassociation F48.1 Active 922368733 Problem Seasonal allergic rhinitis due to pollen J30.1 Active 47260540 Problem Degenerative disc disease, 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 Active 49484985 Problem Degenerative disc disease, cervical M50.30 Active 33717200 Problem Tear of infraspinatus tendon, left, initial encounter S46.812A Active 9884468 Problem Nontraumatic tear of left supraspinatus tendon M75.102 Active 016162358 Problem Erectile dysfunction due to diseases classified elsewhere N52.1 Active 400326978 Problem Pain in left knee M25.562 Active 70718946 Problem Routine health maintenance Z00.00 Active 922385507 Problem Pain in right knee M25.561 Active 10599497 Problem Type 2 diabetes mellitus without complication, without long-term current use of insulin E11.9 Active 801075564 Problem Other chronic pain G89.29 Active 44024616 ALLERGIES Substance Reaction Event Type Date Status Januvia rash Drug Allergy Jul, Active SOCIAL HISTORY Never Assessed PLAN OF CARE Activity Details Follow Up 3 Months Reason:[facility] VITAL SIGNS Height 71 in 2016-07-12 Weight 220.5 lbs 2016-07-12 Temperature 98.4 degrees Fahrenheit 2016-07-12 Heart Rate 74 bpm 2016-07-12 Respiratory Rate 18 2016-07-12 BMI 30.75 kg/m2 2016-07-12 Blood pressure systolic 137 mmHg 2016-07-12 Blood pressure diastolic 78 mmHg 2016-07-12 MEDICATIONS Medication Instructions Dosage Frequency Start Date End Date Duration Status Metformin HCl 1000 MG Orally Twice a day 1 tablet with meals 12h 90 days Active Lisinopril 20 mg Orally Once a day 1 tablet 24h 90 days Active Glucocard Expression Test - In Vitro 3 times a day as directed 8h Apr, Active Indomethacin 25 MG Orally Twice a day 1 capsule with food or milk 12h Jun, September, 90 days Active Atorvastatin Calcium 10 mg Orally Once a day 1 tablet 24h 90 days Active Citalopram Hydrobromide 20 mg Orally Once a day 1 tablet 24h Jul, 90 days Active Tramadol HCl 50 mg Orally 2 times a day 1 tablet as needed 12h Jun, 90 days Active RESULTS Name Result Date Reference Range A1C (IN HOUSE) 2016-07-12 A1C IN HOUSE 7.6 4.3 - 5.6 % Previous A1c 7.2 Lot [id number] Exp date MICROALBUMIN, URINE (IN HOUSE) 2016-07-12 MICROALBUMIN normal Lot # [id number] Exp date 06/12/17 Clarity clear Color yellow ALB 10mg/L CRE 200mg/dL A:C (IN HOUSE) <30mg/g Control Control Lot # Exp date [employer] 2016-07-12 PROCEDURES Procedure Date Ordered Result Body Site GLYCATED HEMOGLOBIN TEST July 12, 2016 MICROALBUMIN, SEMIQUANT July 12, 2016 No Charge July 12, 2016 IMMUNIZATIONS No Known Immunizations MEDICAL (GENERAL) HISTORY [...]
--- OUTSIDE RECORDS SUMMARY | 2017-05-02 16:57 | XMS REPORT ---
Author Author JAILENE BRANT Organization [facility] Address [address] [place] [address] Care Team Providers Care Hydro Station Operator Name Role Phone BRANT DENT Unavailable PROBLEMS Type Condition ICD9-CM Code [id number] Code Onset Dates Condition Status SNOMED Code Problem Essential hypertension I10 Active 19238907 Problem Mood swings F39 Active 87542656 Problem Hyperlipidemia, unspecified hyperlipidemia type E78.5 Active 62852636 Problem Incomplete tear of left rotator cuff M75.112 Active 141788666 Problem Major depressive disorder with single episode, in partial remission F32.4 Active 32882043 Problem Major depressive disorder, recurrent episode, moderate F33.1 Active 537298009 Problem Anxiety, generalized F41.1 Active 34536091 Problem Disassociation F48.1 Active 856403606 Problem Seasonal allergic rhinitis due to pollen J30.1 Active 93480016 Problem Degenerative disc disease, 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 Active 69365441 Problem Degenerative disc disease, cervical M50.30 Active 63906342 Problem Tear of infraspinatus tendon, left, initial encounter S46.812A Active 7497261 Problem Nontraumatic tear of left supraspinatus tendon M75.102 Active 670006152 Problem Erectile dysfunction due to diseases classified elsewhere N52.1 Active 643679033 Problem Pain in left knee M25.562 Active 27997117 Problem Routine health maintenance Z00.00 Active 610101858 Problem Pain in right knee M25.561 Active 17545183 Problem Type 2 diabetes mellitus without complication, without long-term current use of insulin E11.9 Active 636387504 Problem Other chronic pain G89.29 Active 37011194 ALLERGIES No Information SOCIAL HISTORY Never Assessed [...]
--- OUTSIDE RECORDS SUMMARY | 2017-05-02 16:57 | XMS REPORT ---
Author Author HENRI BARCLAY Organization [facility] Address [address] [place] [address] Care Team Providers Care Water Pollution Scientist Name Role Phone HENRI BARCLAY Unavailable PROBLEMS Type Condition ICD9-CM Code [id number] Code Onset Dates Condition Status SNOMED Code Problem Type 2 diabetes mellitus without complication, without long-term current use of insulin E11.9 Active 279813489 Problem Mood swings F39 Active 80779255 Problem Hyperlipidemia, unspecified hyperlipidemia type E78.5 Active 28272887 Problem Hypersomnia G47.10 Active 37129676 Problem Incomplete tear of left rotator cuff M75.112 Active 618129808 Problem Major depressive disorder, recurrent episode, moderate F33.1 Active 057718875 Problem Anxiety, generalized F41.1 Active 71238623 Problem Disassociation F48.1 Active 671475458 Problem Seasonal allergic rhinitis due to pollen J30.1 Active 92841861 Problem Tear of infraspinatus tendon, left, initial encounter S46.812A Active 5004807 Problem Nontraumatic tear of left supraspinatus tendon M75.102 Active 690588139 Problem Degenerative disc disease, 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 Active 28953226 Problem Pain in left knee M25.562 Active 22119590 Problem Pain in right knee M25.561 Active 45343111 Problem Degenerative disc disease, cervical M50.30 Active 25894547 Problem Other chronic pain G89.29 Active 91879114 Problem Erectile dysfunction due to diseases classified elsewhere N52.1 Active 771582790 Problem Essential hypertension I10 Active 90400757 ALLERGIES No Information SOCIAL HISTORY Never Assessed PLAN OF CARE Activity Details Follow Up 2 Weeks Reason:[facility] F/U VITAL SIGNS MEDICATIONS Unknown Medications RESULTS No Results PROCEDURES Procedure Date Ordered Result Body Site Psychotherapy, patient &/family, 45 minutes, established patient September 25, 2016 IMMUNIZATIONS No Known Immunizations MEDICAL (GENERAL) [...]
--- OUTSIDE RECORDS SUMMARY | 2017-05-02 16:57 | XMS REPORT ---
Author Author HENRI BARCLAY Organization [facility] Address [address] [place] [address] Care Team Providers Care Warehouse Delivery Manager Name Role Phone HENRI BARCLAY Unavailable PROBLEMS Type Condition ICD9-CM Code [id number] Code Onset Dates Condition Status SNOMED Code Problem Essential hypertension I10 Active 75339418 Problem Mood swings F39 Active 56714058 Problem Hyperlipidemia, unspecified hyperlipidemia type E78.5 Active 52690100 Problem Incomplete tear of left rotator cuff M75.112 Active 173692944 Problem Major depressive disorder with single episode, in partial remission F32.4 Active 71137334 Problem Major depressive disorder, recurrent episode, moderate F33.1 Active 678702015 Problem Anxiety, generalized F41.1 Active 87638106 Problem Disassociation F48.1 Active 173432969 Problem Seasonal allergic rhinitis due to pollen J30.1 Active 03372306 Problem Degenerative disc disease, 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 Active 24848010 Problem Degenerative disc disease, cervical M50.30 Active 90953353 Problem Tear of infraspinatus tendon, left, initial encounter S46.812A Active 3522287 Problem Nontraumatic tear of left supraspinatus tendon M75.102 Active 807783341 Problem Erectile dysfunction due to diseases classified elsewhere N52.1 Active 189468776 Problem Pain in left knee M25.562 Active 41007758 Problem Routine health maintenance Z00.00 Active 646578816 Problem Pain in right knee M25.561 Active 48527493 Problem Type 2 diabetes mellitus without complication, without long-term current use of insulin E11.9 Active 577578670 Problem Other chronic pain G89.29 Active 06410777 ALLERGIES No Information SOCIAL HISTORY Never Assessed PLAN OF CARE Activity Details Follow Up 2 Weeks Reason:[facility] F/U VITAL SIGNS MEDICATIONS Unknown Medications RESULTS No Results PROCEDURES Procedure Date Ordered Result Body Site Psychotherapy, patient &/family, 45 minutes, established patient Jul 03, 2016 IMMUNIZATIONS No Known Immunizations MEDICAL (GENERAL) HISTORY Type Description Date Medical History hypertension Medical History hyperlipidemia Medical History diabetes mellitus Medical History asthma Medical History 11/2016- Holter monitor- SR w/ frequent PVC's, V. Hernandoini, occ. V. couplet Surgical History carpal tunnel release--Bilateral Surgical History orthopedic surgery--right elbow tendon repair Surgical History Back surgery--trimming of disc at L4-L5 1992 Surgical History Disc replacement -Lumbar Spine 2009 Surgical History tonsillectomy Surgical History cholecystectomy Hospitalization History Surgeries Only Hospitalization History Denies any past psychiatric hospitalization
--- OUTSIDE RECORDS SUMMARY | 2017-05-02 16:57 | XMS REPORT ---
Author Author BRANT DENT Organization [facility] Address [address] [place] [address] Care Team Providers Care Nurse Practitioner Adult Name Role Phone DENTBRANT White Unavailable PROBLEMS Type Condition ICD9-CM Code [id number] Code Onset Dates Condition Status SNOMED Code Problem Type 2 diabetes mellitus without complication, without long-term current use of insulin E11.9 Active 366322926 Problem Mood swings F39 Active 15116445 Problem Hyperlipidemia, unspecified hyperlipidemia type E78.5 Active 60521427 Problem Hypersomnia G47.10 Active 10460167 Problem Incomplete tear of left rotator cuff M75.112 Active 338220702 Problem Major depressive disorder, recurrent episode, moderate F33.1 Active 643390727 Problem Anxiety, generalized F41.1 Active 66114912 Problem Disassociation F48.1 Active 668759866 Problem Seasonal allergic rhinitis due to pollen J30.1 Active 70920356 Problem Tear of infraspinatus tendon, left, initial encounter S46.812A Active 2071264 Problem Nontraumatic tear of left supraspinatus tendon M75.102 Active 962654889 Problem Degenerative disc disease, 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 Active 85636383 Problem Pain in left knee M25.562 Active 83046457 Problem Pain in right knee M25.561 Active 01381570 Problem Degenerative disc disease, cervical M50.30 Active 22709520 Problem Other chronic pain G89.29 Active 85944414 Problem Erectile dysfunction due to diseases classified elsewhere N52.1 Active 607981873 Problem Essential hypertension I10 Active 33052654 ALLERGIES Substance Reaction Event Type Date Status Januvia rash Drug Allergy September, Active SOCIAL HISTORY Never Assessed PLAN OF CARE Activity Details Follow Up 4 Weeks Reason:[facility]M/ Shoulder pain/ DM VITAL SIGNS Height 71 in 2016-09-25 Weight 220.0 lbs 2016-09-25 Temperature 97.9 degrees Fahrenheit 2016-09-25 BMI 30.68 kg/m2 2016-09-25 Blood pressure systolic 122 mmHg 2016-09-25 Blood pressure diastolic 74 mmHg 2016-09-25 MEDICATIONS Medication Instructions Dosage Frequency Start Date End Date Duration Status ProAir HFA 108 (90 Base) MCG/ACT Inhalation every 4 hrs 2 puffs as needed 4h Jul, 12 months Active Atorvastatin Calcium 10 mg Orally Once a day 1 tablet 24h 90 days Active Lisinopril 20 mg Orally Once a day 1 tablet 24h 90 days Active Indomethacin 25 MG Orally Twice a day 1 capsule with food or milk 12h Jun, September, 90 days Active Multivitamin Adult - Active Metformin HCl 1000 MG Orally Twice a day 1 tablet with meals 12h 90 days Active Tizanidine HCl 2 MG Orally Once a day 1 tablet at bedtime with the 4 mg tablet 24h September, Oct, 30 days Active Tizanidine HCl 4 MG Orally 2 times a day 1 tabelet in the morning and 1 tablet at bedtime 12h 18 Aug, 2016 Dec, 30 days Active RESULTS Name Result Date Reference Range MRI : Shoulder, Left 2016-10-04 PROCEDURES No Known procedures IMMUNIZATIONS No Known [...]
--- OUTSIDE RECORDS SUMMARY | 2017-05-02 16:58 | XMS REPORT ---
Author Author DENTBRANT Organization [facility] Address [address] [place] [address] Care Team Providers Care Lombardi Developer Name Role Phone BRANT DENT Unavailable PROBLEMS Type Condition ICD9-CM Code LPA70-QK Code Onset Dates Condition Status SNOMED Code Problem Essential hypertension I10 Active 01669988 Problem Mood swings F39 Active 10808056 Problem Hyperlipidemia, unspecified hyperlipidemia type E78.5 Active 95262755 Problem Incomplete tear of left rotator cuff M75.112 Active 371433204 Problem Major depressive disorder with single episode, in partial remission F32.4 Active 05447902 Problem Major depressive disorder, recurrent episode, moderate F33.1 Active 498113057 Problem Anxiety, generalized F41.1 Active 39790855 Problem Disassociation F48.1 Active 343668192 Problem Seasonal allergic rhinitis due to pollen J30.1 Active 39072010 Problem Degenerative disc disease, 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 Active 96427472 Problem Degenerative disc disease, cervical M50.30 Active 25534986 Problem Tear of infraspinatus tendon, left, initial encounter S46.812A Active 4024126 Problem Nontraumatic tear of left supraspinatus tendon M75.102 Active 296126083 Problem Erectile dysfunction due to diseases classified elsewhere N52.1 Active 129204591 Problem Pain in left knee M25.562 Active 43591592 Problem Routine health maintenance Z00.00 Active 159838656 Problem Pain in right knee M25.561 Active 94640703 Problem Type 2 diabetes mellitus without complication, without long-term current use of insulin E11.9 Active 226926159 Problem Other chronic pain G89.29 Active 41010325 ALLERGIES Unknown Allergies SOCIAL HISTORY No smoking Hx information available PLAN OF CARE VITAL SIGNS MEDICATIONS Medication Instructions Dosage Frequency Start Date End Date Duration Status Metformin HCl 1000 MG Orally Twice a day 1 tablet with meals 12h 30 days Active RESULTS No Results PROCEDURES No Known procedures IMMUNIZATIONS No Known Immunizations
--- OUTSIDE RECORDS SUMMARY | 2017-05-02 16:58 | XMS REPORT ---
Author Author Marlon ALEKSANDAR [facility] Address [address] [place] [address] Care Team Providers Care Field Inspector Name Role Phone juanALEKSANDAR Gray Unavailable PROBLEMS Type Condition ICD9-CM Code HXP97-MG Code Onset Dates Condition Status SNOMED Code Problem Type 2 diabetes mellitus without complication, without long-term current use of insulin E11.9 Active 270026584 Problem Mood swings F39 Active 99717248 Problem Hyperlipidemia, unspecified hyperlipidemia type E78.5 Active 16883778 Problem Hypersomnia G47.10 Active 75486058 Problem Incomplete tear of left rotator cuff M75.112 Active 012711543 Problem Major depressive disorder, recurrent episode, moderate F33.1 Active 553092017 Problem Anxiety, generalized F41.1 Active 09672818 Problem Disassociation F48.1 Active 508180139 Problem Seasonal allergic rhinitis due to pollen J30.1 Active 60657001 Problem Tear of infraspinatus tendon, left, initial encounter S46.812A Active 4470097 Problem Nontraumatic tear of left supraspinatus tendon M75.102 Active 838424432 Problem Degenerative disc disease, 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 Active 40657110 Problem Pain in left knee M25.562 Active 92151675 Problem Pain in right knee M25.561 Active 36189055 Problem Degenerative disc disease, cervical M50.30 Active 40320567 Problem Other chronic pain G89.29 Active 45259354 Problem Erectile dysfunction due to diseases classified elsewhere N52.1 Active 958172579 Problem Essential hypertension I10 Active 69744260 ALLERGIES Substance Reaction Event Type Date Status Januvia rash Drug Allergy September, Active SOCIAL HISTORY Never Assessed PLAN OF CARE Activity Details Follow Up 6 Weeks with new provider Reason: VITAL SIGNS Height 71 in 2016-10-09 Weight 217.9 lbs 2016-10-09 Heart Rate 72 bpm 2016-10-09 Respiratory Rate 20 2016-10-09 BMI 30.39 kg/m2 2016-10-09 Blood pressure systolic 140 mmHg 2016-10-09 Blood pressure diastolic 78 mmHg 2016-10-09 MEDICATIONS Medication Instructions Dosage Frequency Start Date End Date Duration Status ProAir HFA 108 (90 Base) MCG/ACT Inhalation every 4 hrs 2 puffs as needed 4h 23 Jul, 2016 12 months Active Multivitamin Adult - Active Lisinopril 20 mg Orally Once a day 1 tablet 24h 90 days Active Toprol XL 50 MG Orally Once a day 1 tablet 24h Active Atorvastatin Calcium 10 mg Orally Once a day 1 tablet 24h 90 days Active Metformin HCl 1000 MG Orally Twice a day 1 tablet with meals 12h 90 days Active Tizanidine HCl 4 MG Orally 2 times a day 1 tabelet in the morning and 1 tablet at bedtime 12h Aug, Dec, 30 days Active Duloxetine HCl 30 MG Orally daily 1 capsule every morning X 2 weeks then 2 caps every am 24h September, 30 day(s) Active Tizanidine HCl 2 MG Orally Once a day 1 tablet at bedtime with the 4 mg tablet 24h September, 15 Oct, 2016 30 days Active Indomethacin 25 MG Orally Twice a day 1 capsule with food or milk 12h 01 Jun, 2016 September, 90 days Active RESULTS No Results PROCEDURES [...]
--- OUTSIDE RECORDS SUMMARY | 2017-05-02 16:59 | XMS REPORT | Continuity of Care Document ---
Author Author [facility] Organization [facility] Address Unknown Phone Unavailable Allergies Active Description Code Type Severity Reaction Onset Reported/Identified Relationship to Patient Clinical Status Yes No Known Drug Allergies [id number] Drug Allergy Unknown N/A 10/27/2009 Yes sitagliptin [id number] Drug Allergy Unknown N/A 08/20/2016 Medications There is no data. Problems Date Dx Coded Attending Type Code Diagnosis Diagnosed By HARPAL WATTS Ot M75.112 INCOMPLETE ROTATR-CUFF TEAR/RUPTR OF L S 10/28/2009 Ot 250.00 10/28/2009 Ot 272.4 10/28/2009 Ot 278.00 10/28/2009 Ot 300.00 10/28/2009 Ot 401.9 10/28/2009 Ot 414.01 10/28/2009 Ot 739.2 10/28/2009 Ot 739.8 10/28/2009 Ot V15.81 10/28/2009 Ot V17.3 10/28/2009 Ot V85.32 06/29/2010 Ot 250.00 DIAB ISABELL WO COMPL, TYPE II OR UNSPEC TY 06/29/2010 Ot 278.00 OBESITY, NOS 06/29/2010 Ot 300.00 ANXIETY STATE NOS 06/29/2010 Ot 327.26 SLEEP RELATED HYPOVENTILATION/HYPOXEMIA 06/29/2010 Ot 401.9 HYPERTENSION NOS 06/29/2010 Ot 414.01 CORONARY ATHEROSCLEROSIS OF [place] CORON 06/29/2010 Ot 427.31 ATRIAL FIBRILLATION 06/29/2010 Ot 458.9 HYPOTENSION NOS 06/29/2010 Ot V15.81 HX OF PAST NONCOMPLIANCE 06/29/2010 Ot V85.32 BODY MASS INDEX 32.0-32.9, ADULT 09/28/2010 Ot 427.31 ATRIAL FIBRILLATION 03/01/2011 Ot 427.31 ATRIAL FIBRILLATION 05/31/2011 Ot 427.31 ATRIAL FIBRILLATION 01/25/2015 Ot 397.0 01/25/2015 Ot 424.0 01/25/2015 Ot 427.31 01/25/2015 Ot 428.0 01/25/2015 Ot 429.3 01/25/2015 Ot 724.02 01/25/2015 Ot 998.59 01/25/2015 Ot 998.59 01/25/2015 Ot 998.59 01/25/2015 Ot 427.31 01/25/2015 Ot 785.1 01/25/2015 TETO KENNEDY QUAIL FARMER Ot 574.20 CHOLELITHIASIS NOS 01/25/2015 TETO KENNEDY QUAIL FARMER Ot 724.2 LUMBAGO 02/02/2015 Ot 397.0 02/02/2015 Ot 424.0 02/02/2015 Ot 427.31 02/02/2015 Ot 428.0 02/02/2015 Ot 429.3 02/02/2015 Ot 724.02 02/02/2015 Ot 998.59 02/02/2015 Ot 998.59 02/02/2015 Ot 998.59 02/02/2015 Ot 427.31 02/02/2015 Ot 785.1 02/02/2015 MARK MCCORMICK 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 Ot 574.20 02/02/2015 MARK MCCORMICK 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 Ot 721.3 02/02/2015 MARK MCCORMICK 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 Ot V45.4 02/02/2015 RICHELLE HERNANDEZ, PATRICIA Dueñas Ot 553.20 02/02/2015 RICHELLE HERNANDEZ, PATRICIA Dueñas Ot 574.20 02/02/2015 RICHELLE HERNANDEZ, PATRICIA Dueñas Ot V72.83 02/02/2015 RICHELLE HERNANDEZ, PATRICIA Dueñas Ot V74.8 02/02/2015 RICHELLE HERNANDEZ, PATRICIA Dueñas Ot 250.00 DIAB ISABELL WO COMPL, TYPE II OR UNSPEC TY 02/02/2015 RICHELLE HERNANDEZ, PATRICIA Dueñas Ot 493.90 ASTHMA, UNSPECIFIED 02/02/2015 RICHELLE HERNANDEZ, PATRICIA Dueñas Ot 553.20 VENTRAL HERNIA NOS 02/02/2015 RICHELLE HERNANDEZ, PATRICIA Dueñas Ot 574.20 CHOLELITHIASIS NOS 02/18/2015 MARK MCCORMICK 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 Ot 574.20 02/18/2015 MARK MCCORMICK 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 Ot 721.3 02/18/2015 MARK MCCORMICK 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 Ot V45.4 02/18/2015 RICHELLE HERNANDEZ, PATRICIA Dueñas Ot 553.20 02/18/2015 RICHELLE HERNANDEZ, PATRICIA Dueñas Ot 574.20 02/18/2015 RICHELLE HERNANDEZ, PATRICIA Dueñas Ot V72.83 02/18/2015 RICHELLE HERNANDEZ, PATRICIA Dueñas Ot V74.8 05/21/2015 Ot 397.0 05/21/2015 Ot 424.0 05/21/2015 Ot 427.31 05/21/2015 Ot 428.0 05/21/2015 Ot 429.3 05/21/2015 Ot 724.02 05/21/2015 Ot 998.59 05/21/2015 Ot 998.59 05/21/2015 Ot 998.59 05/21/2015 Ot 427.31 05/21/2015 Ot 785.1 05/21/2015 MARK MCCORMICK 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 Ot 574.20 05/21/2015 MARK MCCORMICK 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 Ot 721.3 05/21/2015 MARK MCCORMICK 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 Ot V45.4 05/21/2015 RICHELLE HERNANDEZ, PATRICIA Dueñas Ot 553.20 05/21/2015 RICHELLE HERNANDEZ, PATRICIA Dueñas Ot 574.20 05/21/2015 RICHELLE HERNANDEZ, PATRICIA Dueñas Ot V72.83 05/21/2015 RICHELLE HERNANDEZ, PATRICIA Dueñas Ot V74.8 05/29/2015 MARK MCCORMICK 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 Ot E11.65 05/29/2015 MARK MCCORMICK 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 Ot E78.2 05/29/2015 MARK MCCORMICK 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 Ot I10 05/29/2015 MARK MCCORMICK 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 Ot N52.9 10/27/2015 Ot 397.0 TRICUSPID VALVE DISEASE 10/27/2015 Ot 424.0 MITRAL VALVE DISORDER 10/27/2015 Ot 427.31 ATRIAL FIBRILLATION 10/27/2015 Ot 428.0 CONGESTIVE HEART FAILURE NOS 10/27/2015 Ot 429.3 CARDIOMEGALY 10/27/2015 Ot 724.02 SPINAL STENOSIS, LUMBAR REG, W/OUT NEURO 10/27/2015 Ot 998.59 OTH POSTOPER INFECTION 10/27/2015 Ot 998.59 OTH POSTOPER INFECTION 10/27/2015 Ot 998.59 OTH POSTOPER INFECTION 10/27/2015 Ot 427.31 ATRIAL FIBRILLATION 10/27/2015 Ot 785.1 PALPITATIONS 10/27/2015 MARK MCCORMICK 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 Ot 574.20 CHOLELITHIASIS NOS 10/27/2015 MARK MCCORMICK [facility] Ot 721.3 LUMBOSACRAL SPONDYLOSIS 10/27/2015 MARK MCCORMICK [facility] Ot V45.4 ARTHRODESIS STATUS 10/27/2015 RICHELLE HERNANDEZ, PATRICIA Dueñas Ot 553.20 VENTRAL HERNIA NOS 10/27/2015 RICHELLE HERNANDEZ, PATRICIA Dueñas Ot 574.20 CHOLELITHIASIS NOS 10/27/2015 RICHELLE HERNANDEZ, PATRICIA Dueñas Ot V72.83 EXAM PRE-OPERATIVE NEC 10/27/2015 RICHELLE HERNANDEZ, PATRICIA Dueñas Ot V74.8 SCREEN-BACTERIAL DIS NEC 10/27/2015 MARK MCCORMICK [facility] Ot E11.65 TYPE 2 DIABETES MELLITUS WITH HYPERGLYCE 10/27/2015 MARK MCCORMICK [facility] Ot E78.2 MIXED HYPERLIPIDEMIA 10/27/2015 MARK MCCORMICK [facility] Ot I10 ESSENTIAL (PRIMARY) HYPERTENSION 10/27/2015 MARK MCCORMICK [facility] Ot N52.9 MALE ERECTILE DYSFUNCTION, UNSPECIFIED 10/31/2015 Ot 397.0 TRICUSPID VALVE DISEASE 10/31/2015 Ot 424.0 MITRAL VALVE DISORDER 10/31/2015 Ot 427.31 ATRIAL FIBRILLATION 10/31/2015 Ot 428.0 CONGESTIVE HEART FAILURE NOS 10/31/2015 Ot 429.3 CARDIOMEGALY 10/31/2015 Ot 724.02 SPINAL STENOSIS, LUMBAR REG, W/OUT NEURO 10/31/2015 Ot 998.59 OTH POSTOPER INFECTION 10/31/2015 Ot 998.59 OTH POSTOPER INFECTION 10/31/2015 Ot 998.59 OTH POSTOPER INFECTION 10/31/2015 Ot 427.31 ATRIAL FIBRILLATION 10/31/2015 Ot 785.1 PALPITATIONS 10/31/2015 MARK MCCORMICK 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 Ot 574.20 CHOLELITHIASIS NOS 10/31/2015 MARK MCCORMICK [facility] Ot 721.3 LUMBOSACRAL SPONDYLOSIS 10/31/2015 MARK MCCORMICK 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 Ot V45.4 ARTHRODESIS STATUS 10/31/2015 RICHELLE HERNANDEZ, PATRICIA Dueñas Ot 553.20 VENTRAL HERNIA NOS 10/31/2015 RICHELLE HERNANDEZ, PATRICIA Dueñas Ot 574.20 CHOLELITHIASIS NOS 10/31/2015 RICHELLE HERNANDEZ, PATRICIA M Ot V72.83 EXAM PRE-OPERATIVE NEC 10/31/2015 RICHELLE HERNANDEZ, PATRICIA Spenser Ot V74.8 SCREEN-BACTERIAL DIS NEC 10/31/2015 MARK MCCORMICK 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 Ot E11.65 TYPE 2 DIABETES MELLITUS WITH HYPERGLYCE 10/31/2015 MARK MCCORMICK 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 Ot E78.2 MIXED HYPERLIPIDEMIA 10/31/2015 MARK MCCORMICK 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 Ot I10 ESSENTIAL (PRIMARY) HYPERTENSION 10/31/2015 MARK MCCORMICK 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 Ot N52.9 MALE ERECTILE DYSFUNCTION, UNSPECIFIED 11/01/2015 ROOPA LE QUAIL FARMER Ot E86.0 DEHYDRATION 11/01/2015 ROOPA LE QUAIL FARMER Ot R11.2 NAUSEA WITH VOMITING, UNSPECIFIED 11/01/2015 ROOPA LE QUAIL FARMER Ot R19.7 DIARRHEA, UNSPECIFIED 11/01/2015 ROOPA LE QUAIL FARMER Ot E86.0 DEHYDRATION 11/01/2015 ROOPA LE QUAIL FARMER Ot R11.0 NAUSEA 11/01/2015 ROOPA LE QUAIL FARMER Ot R19.7 DIARRHEA, UNSPECIFIED 11/03/2015 ROOPA LE QUAIL FARMER Ot E86.0 DEHYDRATION 11/03/2015 ROOPA LE QUAIL FARMER Ot R11.0 NAUSEA 11/03/2015 ROOPA LE QUAIL FARMER Ot R19.7 DI[place]HEA, UNSPECIFIED 11/17/2015 ROOPA LE QUAIL FARMER Ot E86.0 DEHYDRATION 11/17/2015 ROOPA LE QUAIL FARMER Ot R11.0 NAUSEA 11/17/2015 ROOPA LE QUAIL FARMER Ot R19.7 [place]HE[place], UNSPECIFIED 11/24/2015 ROOPA LE QUAIL FARMER Ot E86.0 DEHYDRATION 11/24/2015 ROOPA LE QUAIL FARMER Ot R11.2 NAUSEA WITH VOMITING, UNSPECIFIED 11/24/2015 ROOPA LE QUAIL FARMER Ot R19.7 DIARRHEA, UNSPECIFIED 12/22/2015 ROOPA LE QUAIL FARMER Ot N28.9 DISORDER OF KIDNEY AND URETER, UNSPECIFI 08/20/2016 Ot 427.31 ATRIAL FIBRILLATION 08/20/2016 Ot 427.31 ATRIAL FIBRILLATION 08/20/2016 Ot 785.1 PALPITATIONS 08/20/2016 MARK MCCORMICK 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 Ot 574.20 CHOLELITHIASIS NOS 08/20/2016 MARK MCCORMICK 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 Ot 721.3 LUMBOSACRAL SPONDYLOSIS 08/20/2016 MARK MCCORMICK 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 Ot V45.4 ARTHRODESIS STATUS 08/20/2016 RICHELLE HERNANDEZ, PATRICIA Dueñas Ot 553.20 VENTRAL HERNIA NOS 08/20/2016 RICHELLE HERNANDEZ, PATRICIA Dueñas Ot 574.20 CHOLELITHIASIS NOS 08/20/2016 RICHELLE HERNANDEZ, PATRICIA Dueñas Ot V72.83 EXAM PRE-OPERATIVE NEC 08/20/2016 RICHELLE HERNANDEZ, PATRICIA Dueñas Ot V74.8 SCREEN-BACTERIAL DIS NEC 08/20/2016 MARK MCCORMICK 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 Ot E11.65 TYPE 2 DIABETES MELLITUS WITH HYPERGLYCE 08/20/2016 MARK MCCORMICK 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 Ot E78.2 MIXED HYPERLIPIDEMIA 08/20/2016 MARK MCCORMICK 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 Ot I10 ESSENTIAL (PRIMARY) HYPERTENSION 08/20/2016 MARK MCCORMICK 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 Ot N52.9 MALE ERECTILE DYSFUNCTION, UNSPECIFIED 08/20/2016 ROOPA LE QUAIL FARMER Ot E86.0 DEHYDRATION 08/20/2016 ROOPA LE QUAIL FARMER Ot R11.0 NAUSEA 08/20/2016 ROOPA LE QUAIL FARMER Ot R19.7 DIARRHEA, UNSPECIFIED 08/20/2016 ROOPA LE QUAIL FARMER Ot E86.0 DEHYDRATION 08/20/2016 ROOAP LE QUAIL FARMER Ot R11.2 NAUSEA WITH VOMITING, UNSPECIFIED 08/20/2016 ROOPA LE QUAIL FARMER Ot R19.7 DIARRHEA, UNSPECIFIED 08/20/2016 ROOPA LE QUAIL FARMER Ot N28.9 DISORDER OF KIDNEY AND URETER, UNSPECIFI 08/20/2016 FLAVIO HERNANDEZ, MERCED Jordan Ot E11.9 TYPE 2 DIABETES MELLITUS WITHOUT COMPLIC 08/20/2016 FLAVIO HERNANDEZ, MERCED Jordan Ot E78.5 HYPERLIPIDEMIA, UNSPECIFIED 08/20/2016 MERCED MUNIZ MD Ot F12.90 CANNABIS USE, UNSPECIFIED, UNCOMPLICATED 08/20/2016 MERCED MUNIZ MD Ot F32.9 MAJOR DEPRESSIVE DISORDER, SINGLE EPISOD 08/20/2016 FLAVIO HERNANDEZ, MERCED Jordan Ot F41.9 ANXIETY DISORDER, UNSPECIFIED 08/20/2016 MERCED MUNIZ MD Ot I10 ESSENTIAL (PRIMARY) HYPERTENSION 08/20/2016 MERCED MUNIZ MD Ot I48.91 UNSPECIFIED ATRIAL FIBRILLATION 08/20/2016 MERCED MUNIZ MD Ot K21.9 GASTRO-ESOPHAGEAL REFLUX DISEASE WITHOUT 08/20/2016 MERCED MUNIZ MD Ot N39.0 URINARY TRACT INFECTION, SITE NOT SPECIF 08/20/2016 MERCED MUNIZ MD Ot T40.4X2A POISONING BY OTH SYNTHETIC NARCOTICS, SE 08/20/2016 MERCED MUNIZ MD Ot Z79.84 RESIDENTIAL (CURRENT) USE OF ORAL HYPOGLYC 08/21/2016 Ot 427.31 ATRIAL FIBRILLATION 08/21/2016 Ot 785.1 PALPITATIONS 08/21/2016 MARK MCCORMICK 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 Ot 574.20 CHOLELITHIASIS NOS 08/21/2016 MARK MCCORMICK 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 Ot 721.3 LUMBOSACRAL SPONDYLOSIS 08/21/2016 MARK MCCORMICK 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 Ot V45.4 ARTHRODESIS STATUS 08/21/2016 RICHELLE HERNANDEZ, PATRICIA Dueñas Ot 553.20 VENTRAL HERNIA NOS 08/21/2016 RICHELLE HERNANDEZ, PATRICIA Dueñas Ot 574.20 CHOLELITHIASIS NOS 08/21/2016 RICHELLE HERNANDEZ, PATRICIA Dueñas Ot V72.83 EXAM PRE-OPERATIVE NEC 08/21/2016 RICHELLE HERNANDEZ, PATRICIA Dueñas Ot V74.8 SCREEN-BACTERIAL DIS NEC 08/21/2016 MARK MCCORMICK 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 Ot E11.65 TYPE 2 DIABETES MELLITUS WITH HYPERGLYCE 08/21/2016 MARK MCCORMICK 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 Ot E78.2 MIXED HYPERLIPIDEMIA 08/21/2016 MARK MCCORMICK 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 Ot I10 ESSENTIAL (PRIMARY) HYPERTENSION 08/21/2016 MARK MCCORMICK 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 Ot N52.9 MALE ERECTILE DYSFUNCTION, UNSPECIFIED 08/21/2016 ROOPA LE QUAIL FARMER Ot E86.0 DEHYDRATION 08/21/2016 ROOPA LE QUAIL FARMER Ot R11.0 NAUSEA 08/21/2016 ROOPA LE QUAIL FARMER Ot R19.7 DIARRHEA, UNSPECIFIED 08/21/2016 ROOPA LE QUAIL FARMER Ot E86.0 DEHYDRATION 08/21/2016 ROOPA LE QUAIL FARMER Ot R11.2 NAUSEA WITH VOMITING, UNSPECIFIED 08/21/2016 ROOPA LE QUAIL FARMER Ot R19.7 DIARRHEA, UNSPECIFIED 08/21/2016 ROOPA LE QUAIL FARMER Ot N28.9 DISORDER OF KIDNEY AND URETER, UNSPECIFI 09/01/2016 MARK MCCORMICK 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 Ot 574.20 CHOLELITHIASIS NOS 09/01/2016 MARK MCCORMICK 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 Ot 721.3 LUMBOSACRAL SPONDYLOSIS 09/01/2016 MARK MCCORMICK 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 Ot V45.4 ARTHRODESIS STATUS 09/01/2016 RICHELLE HERNANDEZ, PATRICIA M Ot 553.20 VENTRAL HERNIA NOS 09/01/2016 RICHELLE HENRANDEZ, PATRICIA M Ot 574.20 CHOLELITHIASIS NOS 09/01/2016 RICHELLE HERNANDEZ, PATRICIA M Ot V72.83 EXAM PRE-OPERATIVE NEC 09/01/2016 RICHELLE HERNANDEZ, PATRICIA M Ot V74.8 SCREEN-BACTERIAL DIS NEC 09/01/2016 MARK MCCORMICK 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 Ot E11.65 TYPE 2 DIABETES MELLITUS WITH HYPERGLYCE 09/01/2016 MARK MCCORMICK 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 Ot E78.2 MIXED HYPERLIPIDEMIA 09/01/2016 MARK MCCORMICK 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 Ot I10 ESSENTIAL (PRIMARY) HYPERTENSION 09/01/2016 MARK MCCORMICK 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 Ot N52.9 MALE ERECTILE DYSFUNCTION, UNSPECIFIED 09/01/2016 ROOPA LE QUAIL FARMER Ot E86.0 DEHYDRATION 09/01/2016 ROOPA LE QUAIL FARMER Ot R11.0 NAUSEA 09/01/2016 ROOPA LE QUAIL FARMER Ot R19.7 DIARRHEA, UNSPECIFIED 09/01/2016 ROOPA LE QUAIL FARMER Ot E86.0 DEHYDRATION 09/01/2016 ROOPA LE QUAIL FARMER Ot R11.2 NAUSEA WITH VOMITING, UNSPECIFIED 09/01/2016 ROOPA LE QUAIL FARMER Ot R19.7 DIARRHEA, UNSPECIFIED 09/01/2016 ROOPA LE QUAIL FARMER Ot N28.9 DISORDER OF KIDNEY AND URETER, UNSPECIFI 09/03/2016 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 Ot M48.02 SPINAL STENOSIS, CERVICAL REGION 09/04/2016 MARK MCCORMICK 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 Ot 574.20 CHOLELITHIASIS NOS 09/04/2016 MARK MCCORMICK 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 Ot 721.3 LUMBOSACRAL SPONDYLOSIS 09/04/2016 MARK MCCORMICK 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 Ot V45.4 ARTHRODESIS STATUS 09/04/2016 RICHELLE HERNADNEZ, PATRICIA Dueñas Ot 553.20 VENTRAL HERNIA NOS 09/04/2016 RICHELLE HERNANDEZ, PATRICIA Dueñas Ot 574.20 CHOLELITHIASIS NOS 09/04/2016 RICHELLE HERNANDEZ, PATRICIA Dueñas Ot V72.83 EXAM PRE-OPERATIVE NEC 09/04/2016 RICHELLE HERNANDEZ, PATRICIA Dueñas Ot V74.8 SCREEN-BACTERIAL DIS NEC 09/04/2016 MARK MCCORMICK 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 Ot E11.65 TYPE 2 DIABETES MELLITUS WITH HYPERGLYCE 09/04/2016 MARK MCCORMICK 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 Ot E78.2 MIXED HYPERLIPIDEMIA 09/04/2016 MARK MCCORMICK 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 Ot I10 ESSENTIAL (PRIMARY) HYPERTENSION 09/04/2016 MARK MCCORMICK 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 Ot N52.9 MALE ERECTILE DYSFUNCTION, UNSPECIFIED 09/04/2016 ROOPA LE QUAIL FARMER Ot E86.0 DEHYDRATION 09/04/2016 ROOPA LE QUAIL FARMER Ot R11.0 NAUSEA 09/04/2016 ROOPA LE QUAIL FARMER Ot R19.7 DIARRHEA, UNSPECIFIED 09/04/2016 ROOPA LE QUAIL FARMER Ot E86.0 DEHYDRATION 09/04/2016 ROOPA LE QUAIL FARMER Ot R11.2 NAUSEA WITH VOMITING, UNSPECIFIED 09/04/2016 ROOPA LE QUAIL FARMER Ot R19.7 DIARRHEA, UNSPECIFIED 09/04/2016 ROOPA LE QUAIL FARMER Ot N28.9 DISORDER OF KIDNEY AND URETER, UNSPECIFI 09/04/2016 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 Ot M48.02 SPINAL STENOSIS, CERVICAL REGION 09/04/2016 MARYLOU MATA DO Ot E11.9 TYPE 2 DIABETES MELLITUS WITHOUT COMPLIC 09/04/2016 MARYLOU MATA DO, Ot I10 ESSENTIAL (PRIMARY) HYPERTENSION 09/04/2016 MARYLOU MATA DO Ot I49.9 CARDIAC ARRHYTHMIA, UNSPECIFIED 09/04/2016 MARYLOU MATA DO Ot R00.8 OTHER ABNORMALITIES OF [place]ART [place] 09/04/2016 MARYLOU MATA DO Ot Z79.84 RESIDENTIAL (CURRENT) USE OF ORAL HYPOGLYC 09/04/2016 ADOLFO MONTANO MARYLOU Porter Ot Z79.899 OTHER RESIDENTIAL (CURRENT) DRUG THERAPY 09/10/2016 Ot 272.4 HYPERLIPIDEMIA NEC/NOS 09/10/2016 Ot 401.9 HYPERTENSION NOS 09/10/2016 Ot 414.00 CORON ATHEROSCLER NOS TYPE VESSEL, NATIV 09/10/2016 MARK MCCORMICKP Ot 790.29 OTHER ABNORMAL GLUCOSE 09/10/2016 MARK MCCORMICKP Ot V72.62 LAB EXAM ORDERED PART OF A ROUTINE GE 09/10/2016 OBIE ROSENBERG MD Ot 250.02 DIAB ISABELL WO COMPL, TYPE II OR UNSPEC TY 09/10/2016 OBIE ROSENBERG MD Ot 401.9 HYPERTENSION NOS 09/10/2016 OBIE ROSENBERG MD Ot V58.69 OTH MED,LT,CURRENT USE 09/10/2016 Ot 272.4 HYPERLIPIDEMIA NEC/NOS 09/10/2016 Ot 401.9 HYPERTENSION NOS 09/10/2016 Ot 414.00 CORON ATHEROSCLER NOS TYPE VESSEL, NATIV 09/10/2016 MARK MCCORMICKP Ot 790.29 OTHER ABNORMAL GLUCOSE 09/10/2016 MARK MCCORMICKP Ot V72.62 LAB EXAM ORDERED PART OF A ROUTINE GE 09/10/2016 OBIE ROSENBERG MD Ot 250.02 DIAB ISABELL WO COMPL, TYPE II OR UNSPEC TY 09/10/2016 OBIE ROSENBERG MD Ot 401.9 HYPERTENSION NOS 09/10/2016 OBIE ROSENBERG MD Ot V58.69 OTH MED,LT,CURRENT USE 09/17/2016 MARK MCCORMICKP Ot 574.20 CHOLELITHIASIS NOS 09/17/2016 MARK MCCORMICK 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 Ot 721.3 LUMBOSACRAL SPONDYLOSIS 09/17/2016 MARK MCCORMICK 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 Ot V45.4 ARTHRODESIS STATUS 09/17/2016 RICHELLE HERNANDEZ, PATRICIA Dueñas Ot 553.20 VENTRAL HERNIA NOS 09/17/2016 RICHELLE HERNANDEZ, PATRICIA Dueñas Ot 574.20 CHOLELITHIASIS NOS 09/17/2016 RICHELLE HERNANDEZ, PATRICIA Dueñas Ot V72.83 EXAM PRE-OPERATIVE NEC 09/17/2016 RICHELLE HERNANDEZ, PATRICIA Dueñas Ot V74.8 SCREEN-BACTERIAL DIS NEC 09/17/2016 MCCORMICK, MARK M 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 Ot E11.65 TYPE 2 DIABETES MELLITUS WITH HYPERGLYCE 09/17/2016 MRAK MCCORMICK 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 Ot E78.2 MIXED HYPERLIPIDEMIA 09/17/2016 MARK MCCORMICK 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 Ot I10 ESSENTIAL (PRIMARY) HYPERTENSION 09/17/2016 MARK MCCORMICK 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 Ot N52.9 MALE ERECTILE DYSFUNCTION, UNSPECIFIED 09/17/2016 ROOPA LE QUAIL FARMER Ot E86.0 DEHYDRATION 09/17/2016 ROOPA LE QUAIL FARMER Ot R11.0 NAUSEA 09/17/2016 ROOPA LE QUAIL FARMER Ot R19.7 DIARRHEA, UNSPECIFIED 09/17/2016 ROOPA LE QUAIL FARMER Ot E86.0 DEHYDRATION 09/17/2016 ROOPA LE QUAIL FARMER Ot R11.2 NAUSEA WITH VOMITING, UNSPECIFIED 09/17/2016 ROOPA LE QUAIL FARMER Ot R19.7 DIARRHEA, UNSPECIFIED 09/17/2016 ROOPA LE QUAIL FARMER Ot N28.9 DISORDER OF KIDNEY AND URETER, UNSPECIFI 09/17/2016 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 Ot M48.02 SPINAL STENOSIS, CERVICAL REGION 09/17/2016 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 Ot M48.02 SPINAL STENOSIS, CERVICAL REGION 09/18/2016 MARYLOU MATA DO Ot E11.9 TYPE 2 DIABETES MELLITUS WITHOUT COMPLIC 09/18/2016 MARYLOU MATA DO, Ot I10 ESSENTIAL (PRIMARY) HYPERTENSION 09/18/2016 MARYLOU MATA DO Ot I49.9 CARDIAC ARRHYTHMIA, UNSPECIFIED 09/18/2016 MARYLOU MATA DO Ot R00.8 OTHER ABNORMALITIES OF HEART BEAT 09/18/2016 MARYLOU MATA DO Ot Z79.84 [employer] USER INTERFACE DEVELOPER (CURRENT) USE OF ORAL HYPOGLYC 09/18/2016 MARYLOU MATA DO, Ot Z79.899 OTHER RESIDENTIAL (CURRENT) DRUG THERAPY 09/18/2016 XIN JOSHUA MD, Ot E78.5 HYPERLIPIDEMIA, UNSPECIFIED 09/18/2016 XIN JOSHUA MD, Ot I10 ESSENTIAL (PRIMARY) HYPERTENSION 09/18/2016 XIN JOSHUA MD, Ot I25.10 ATHSCL HEART DISEASE OF [place] CORONARY 09/18/2016 XIN JOSHUA MD, Ot I50.9 HEART FAILURE, UNSPECIFIED 09/18/2016 XIN JOSHUA MD Ot R94.31 ABNORMAL ELECTROCARDIOGRAM [ECG] [EKG] 09/28/2016 BRANT DENT APRN Ot M48.02 SPINAL STENOSIS, CERVICAL REGION 10/02/2016 BRANT DENT APRN Ot M48.02 SPINAL STENOSIS, CERVICAL REGION 10/18/2016 XIN JOSHUA MD Ot E78.5 HYPERLIPIDEMIA, UNSPECIFIED 10/18/2016 XIN JOSHUA MD Ot I11.0 HYPERTENSIVE HEART DISEASE WITH HEART FA 10/18/2016 XIN JOSHUA MD Ot I25.10 ATHSCL HEART DISEASE OF [place] CORONARY 10/18/2016 XIN JOSHUA MD Ot I50.9 HEART FAILURE, UNSPECIFIED 10/18/2016 XIN JOSHUA MD Ot R94.31 ABNORMAL ELECTROCARDIOGRAM [ECG] [EKG] 10/31/2016 BRANT DENT APRN Ot M19.012 PRIMARY OSTEOARTHRITIS, LEFT SHOULDER 10/31/2016 BRANT DENT APRN Ot M19.012 PRIMARY OSTEOARTHRITIS, LEFT SHOULDER 11/21/2016 HARPAL WATTS Ot M75.112 INCOMPLETE ROTATR-CUFF TEAR/RUPTR OF L S 11/26/2016 BRANT DENT APRN Ot M19.012 PRIMARY OSTEOARTHRITIS, LEFT SHOULDER 12/04/2016 FARHAD HERNANDEZ, ALIYA Arriaga Ot M25.562 PAIN IN LEFT KNEE 12/16/2016 XIN JOSHUA MD Ot E78.5 HYPERLIPIDEMIA, UNSPECIFIED 12/16/2016 XIN JOSHUA MD Ot I10 ESSENTIAL (PRIMARY) HYPERTENSION 12/16/2016 XIN JOSHUA MD Ot I25.10 ATHSCL HEART DISEASE OF [place] CORONARY 12/16/2016 XIN JOSHUA MD Ot I50.9 HEART FAILURE, UNSPECIFIED 12/16/2016 XIN JOSHUA MD Ot R94.31 ABNORMAL ELECTROCARDIOGRAM [ECG] [EKG] 12/18/2016 HARPAL WATTS Ot M75.112 INCOMPLETE ROTATR-CUFF TEAR/RUPTR OF L S 12/18/2016 HARPAL WATTS Ot M75.112 INCOMPLETE ROTATR-CUFF TEAR/RUPTR OF L S 03/31/2017 BRANT DENT APRN Ot G47.30 SLEEP APNEA, UNSPECIFIED 03/31/2017 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 Ot I10 ESSENTIAL (PRIMARY) HYPERTENSION 03/31/2017 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 Ot R06.83 SNORING 04/02/2017 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 Ot G47.30 SLEEP APNEA, UNSPECIFIED 04/02/2017 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 Ot I10 ESSENTIAL (PRIMARY) HYPERTENSION 04/02/2017 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 Ot R06.83 SNORING Procedures There is no data. Results Test Result Range Complete blood count (CBC) with automated white blood cell (WBC) differential - 08/20/16 00:25 Blood leukocytes automated count (number/volume) 14.0 10*3/uL 4.3-11.0 Blood erythrocytes automated count (number/volume) 5.38 10*6/uL 4.35-5.85 Venous blood hemoglobin measurement (mass/volume) 15.4 g/dL 13.3-17.7 Blood hematocrit (volume fraction) 47 % 40-54 Automated erythrocyte mean corpuscular volume 88 [foz_us] 80-99 Automated erythrocyte mean corpuscular hemoglobin (mass per erythrocyte) 29 pg 25-34 Automated erythrocyte mean corpuscular hemoglobin concentration measurement ( mass/volume) 33 g/dL 32-36 Automated erythrocyte distribution width ratio 13.1 % 10.0-14.5 Automated blood platelet count (count/volume) 318 10*3/uL 130-400 Automated blood platelet mean volume measurement 9.9 [foz_us] 7.4-10.4 Automated blood neutrophils/100 leukocytes 82 % 42-75 Automated blood lymphocytes/100 leukocytes 13 % 12-44 Blood monocytes/100 leukocytes 4 % 0-12 Automated blood eosinophils/100 leukocytes 1 % 0-10 Automated blood basophils/100 leukocytes 0 % 0-10 Blood neutrophils automated count (number/volume) 11.4 10*3 1.8-7.8 Blood lymphocytes automated count (number/volume) 1.8 10*3 1.0-4.0 Blood monocytes automated count (number/volume) 0.6 10*3 0.0-1.0 Automated eosinophil count 0.1 10*3/uL 0.0-0.3 Automated blood basophil count (count/volume) 0.0 10*3/uL 0.0-0.1 Comprehensive metabolic panel - 08/20/16 00:25 Serum or plasma sodium measurement (moles/volume) 135 mmol/L 135-145 Serum or plasma potassium measurement (moles/volume) 3.8 mmol/L 3.6-5.0 Serum or plasma chloride measurement (moles/volume) 100 mmol/L 98-107 Carbon dioxide 22 mmol/L 21-32 Serum or plasma anion gap determination (moles/volume) 13 mmol/L 5-14 Serum or plasma urea nitrogen measurement (mass/volume) 17 mg/dL 7-18 Serum or plasma creatinine measurement (mass/volume) 0.98 mg/dL 0.60-1.30 Serum or plasma urea nitrogen/creatinine mass ratio 17 NRG Serum or plasma creatinine measurement with calculation of estimated glomerular filtration rate > NRG Serum or plasma glucose measurement (mass/volume) 247 mg/dL 70-105 Serum or plasma calcium measurement (mass/volume) 9.1 mg/dL 8.5-10.1 Serum or plasma total bilirubin measurement (mass/volume) 0.6 mg/dL 0.1-1.0 Serum or plasma alkaline phosphatase measurement (enzymatic activity/volume) 87 U/L 40-136 Serum or plasma aspartate aminotransferase measurement (enzymatic activity/ volume) 25 U/L 5-34 Serum or plasma alanine aminotransferase measurement (enzymatic activity/volume ) 36 U/L 0-55 Serum or plasma protein measurement (mass/volume) 7.8 g/dL 6.4-8.2 Serum or plasma albumin measurement (mass/volume) 4.2 g/dL 3.2-4.5 Serum or plasma thyrotropin measurement by detection limit <=0.05 miu/l (units/ volume) - 08/20/16 00:25 Serum or plasma thyrotropin measurement by detection limit <=0.05 miu/l (units/ volume) 2.90 u[iU]/mL 0.35-4.94 Serum or plasma salicylates measurement (mass/volume) - 08/20/16 00:25 Serum or plasma salicylates measurement (mass/volume) < mg/dL 5.0-20.0 Serum or plasma acetaminophen measurement (mass/volume) - 08/20/16 00:25 Serum or plasma acetaminophen measurement (mass/volume) < ug/mL 10-30 Serum or plasma ethanol measurement (mass/volume) - 08/20/16 00:25 Serum or plasma ethanol measurement (mass/volume) < mg/dL <10 Urine drug screening test - 08/20/16 01:15 Urine phencyclidine detection by screening method NEGATIVE NEGATIVE Urine benzodiazepines detection by screening method NEGATIVE NEGATIVE Urine cocaine detection NEGATIVE NEGATIVE Urine amphetamines detection by screening method NEGATIVE NEGATIVE Urine methamphetamine detection by screening method NEGATIVE NEGATIVE Urine cannabinoids detection by screening method POSITIVE NEGATIVE Urine opiates detection by screening method NEGATIVE NEGATIVE Urine barbiturates detection NEGATIVE NEGATIVE Screening urine tricyclic antidepressants detection NEGATIVE NEGATIVE Urine methadone detection by screening method NEGATIVE NEGATIVE Urine oxycodone detection NEGATIVE NEGATIVE Urine propoxyphene detection NEGATIVE NEGATIVE Complete urinalysis with reflex to culture - 08/20/16 01:15 Urine color determination YELLOW NRG Urine clarity determination VERY CLOUDY NRG Urine pH measurement by test strip 6 5-9 Specific gravity of urine by test strip 1.025 1.016- 1.022 Urine protein assay by test strip, semi-quantitative 2+ NEGATIVE Urine glucose detection by automated test strip 4+ NEGATIVE Erythrocytes detection in urine sediment by light microscopy 1+ NEGATIVE Urine ketones detection by automated test strip 3+ NEGATIVE Urine nitrite detection by test strip NEGATIVE NEGATIVE Urine total bilirubin detection by test strip NEGATIVE NEGATIVE Urine urobilinogen measurement by automated test strip (mass/volume) 1 mg/dL NORMAL Urine leukocyte esterase detection by dipstick 3+ NEGATIVE Automated urine sediment erythrocyte count by microscopy (number/high power field) [HPF] NRG Automated urine sediment leukocyte count by microscopy (number/high power field ) [HPF] NRG Bacteria detection in urine sediment by light microscopy MODERATE NRG Squamous epithelial cells detection in urine sediment by light microscopy 2-5 NRG Crystals detection in urine sediment by light microscopy NONE NRG Casts detection in urine sediment by light microscopy NONE NRG Mucus detection in urine sediment by light microscopy LARGE NRG Complete urinalysis with reflex to culture YES NRG Bacterial urine culture - 08/20/16 01:15 URINE CULTURE RESULTS <10,000/ML NRG Methicillin resistant Staphylococcus aureus (MRSA) screening culture - 02:15 Methicillin resistant Staphylococcus aureus (MRSA) screening culture NEG NRG Complete blood count (CBC) with automated white blood cell (WBC) differential - 08/20/16 03:36 Blood leukocytes automated count (number/volume) 12.3 10*3/uL 4.3-11.0 Blood erythrocytes automated count (number/volume) 4.97 10*6/uL 4.35-5.85 Venous blood hemoglobin measurement (mass/volume) 14.5 g/dL 13.3-17.7 Blood hematocrit (volume fraction) 44 % 40-54 Automated erythrocyte mean corpuscular volume 88 [foz_us] 80-99 Automated erythrocyte mean corpuscular hemoglobin (mass per erythrocyte) 29 pg 25-34 Automated erythrocyte mean corpuscular hemoglobin concentration measurement ( mass/volume) 33 g/dL 32-36 Automated erythrocyte distribution width ratio 12.8 % 10.0-14.5 Automated blood platelet count (count/volume) 287 10*3/uL 130-400 Automated blood platelet mean volume measurement 10.1 [foz_us] 7.4-10.4 Automated blood neutrophils/100 leukocytes 80 % 42-75 Automated blood lymphocytes/100 leukocytes 14 % 12-44 Blood monocytes/100 leukocytes 6 % 0-12 Automated blood eosinophils/100 leukocytes 0 % 0-10 Automated blood basophils/100 leukocytes 0 % 0-10 Blood neutrophils automated count (number/volume) 9.9 10*3 1.8-7.8 Blood lymphocytes automated count (number/volume) 1.7 10*3 1.0-4.0 Blood monocytes automated count (number/volume) 0.7 10*3 0.0-1.0 Automated eosinophil count 0.0 10*3/uL 0.0-0.3 Automated blood basophil count (count/volume) 0.0 10*3/uL 0.0-0.1 Comprehensive metabolic panel - 08/20/16 03:36 Serum or plasma sodium measurement (moles/volume) 134 mmol/L 135-145 Serum or plasma potassium measurement (moles/volume) 4.2 mmol/L 3.6-5.0 Serum or plasma chloride measurement (moles/volume) 102 mmol/L 98-107 Carbon dioxide 22 mmol/L 21-32 Serum or plasma anion gap determination (moles/volume) 10 mmol/L 5-14 Serum or plasma urea nitrogen measurement (mass/volume) 17 mg/dL 7-18 Serum or plasma creatinine measurement (mass/volume) 0.80 mg/dL 0.60-1.30 Serum or plasma urea nitrogen/creatinine mass ratio 21 NRG Serum or plasma creatinine measurement with calculation of estimated glomerular filtration rate > NRG Serum or plasma glucose measurement (mass/volume) 211 mg/dL 70-105 Serum or plasma calcium measurement (mass/volume) 8.5 mg/dL 8.5-10.1 Serum or plasma total bilirubin measurement (mass/volume) 0.5 mg/dL 0.1-1.0 Serum or plasma alkaline phosphatase measurement (enzymatic activity/volume) 80 U/L 40-136 Serum or plasma aspartate aminotransferase measurement (enzymatic activity/ volume) 21 U/L 5-34 Serum or plasma alanine aminotransferase measurement (enzymatic activity/volume ) 32 U/L 0-55 Serum or plasma protein measurement (mass/volume) 6.8 g/dL 6.4-8.2 Serum or plasma albumin measurement (mass/volume) 3.7 g/dL 3.2-4.5 Serum or plasma phosphate measurement (mass/volume) - 08/20/16 03:36 Serum or plasma phosphate measurement (mass/volume) 2.5 mg/dL 2.3-4.7 Magnesium - 08/20/16 03:36 Magnesium 1.9 mg/dL 1.8-2.4 Complete blood count (CBC) with automated white blood cell (WBC) differential - 09/04/16 11:16 Blood leukocytes automated count (number/volume) 12.6 10*3/uL 4.3-11.0 Blood erythrocytes automated count (number/volume) 5.19 10*6/uL 4.35-5.85 Venous blood hemoglobin measurement (mass/volume) 15.3 g/dL 13.3-17.7 Blood hematocrit (volume fraction) 45 % 40-54 Automated erythrocyte mean corpuscular volume 87 [foz_us] 80-99 Automated erythrocyte mean corpuscular hemoglobin (mass per erythrocyte) 30 pg 25-34 Automated erythrocyte mean corpuscular hemoglobin concentration measurement ( mass/volume) 34 g/dL 32-36 Automated erythrocyte distribution width ratio 12.5 % 10.0-14.5 Automated blood platelet count (count/volume) 334 10*3/uL 130-400 Automated blood platelet mean volume measurement 9.8 [foz_us] 7.4-10.4 Automated blood neutrophils/100 leukocytes 80 % 42-75 Automated blood lymphocytes/100 leukocytes 15 % 12-44 Blood monocytes/100 leukocytes 4 % 0-12 Automated blood eosinophils/100 leukocytes 1 % 0-10 Automated blood basophils/100 leukocytes 0 % 0-10 Blood neutrophils automated count (number/volume) 10.1 10*3 1.8-7.8 Blood lymphocytes automated count (number/volume) 1.9 10*3 1.0-4.0 Blood monocytes automated count (number/volume) 0.5 10*3 0.0-1.0 Automated eosinophil count 0.1 10*3/uL 0.0-0.3 Automated blood basophil count (count/volume) 0.0 10*3/uL 0.0-0.1 Comprehensive metabolic panel - 09/04/16 11:16 Serum or plasma sodium measurement (moles/volume) 131 mmol/L 135-145 Serum or plasma potassium measurement (moles/volume) 4.6 mmol/L 3.6-5.0 Serum or plasma chloride measurement (moles/volume) 98 mmol/L 98-107 Carbon dioxide 23 mmol/L 21-32 Serum or plasma anion gap determination (moles/volume) 10 mmol/L 5-14 Serum or plasma urea nitrogen measurement (mass/volume) 24 mg/dL 7-18 Serum or plasma creatinine measurement (mass/volume) 0.89 mg/dL 0.60-1.30 Serum or plasma urea nitrogen/creatinine mass ratio 27 NRG Serum or plasma creatinine measurement with calculation of estimated glomerular filtration rate > NRG Serum or plasma glucose measurement (mass/volume) 286 mg/dL 70-105 Serum or plasma calcium measurement (mass/volume) 9.2 mg/dL 8.5-10.1 Serum or plasma total bilirubin measurement (mass/volume) 0.4 mg/dL 0.1-1.0 Serum or plasma alkaline phosphatase measurement (enzymatic activity/volume) 66 U/L 40-136 Serum or plasma aspartate aminotransferase measurement (enzymatic activity/ volume) 17 U/L 5-34 Serum or plasma alanine aminotransferase measurement (enzymatic activity/volume ) 28 U/L 0-55 Serum or plasma protein measurement (mass/volume) 6.8 g/dL 6.4-8.2 Serum or plasma albumin measurement (mass/volume) 3.8 g/dL 3.2-4.5 Magnesium - 09/04/16 11:16 Magnesium 1.7 mg/dL 1.8-2.4 Serum or plasma lithium measurement (moles/volume) - 09/04/16 11:16 BNP level 60.0 pg/mL <100.0 Serum or plasma troponin i.cardiac measurement (mass/volume) - 09/04/16 11:16 Serum or plasma troponin i.cardiac measurement (mass/volume) < ng/ mL <0.30 THYROID STIMULATING HORMONE - 09/04/16 11:16 THYROID STIMULATING HORMONE 1.36 u[iU]/mL 0.35-4.94 Urine drug screening test - 09/04/16 11:35 Urine phencyclidine detection by screening method NEGATIVE NEGATIVE Urine benzodiazepines detection by screening method NEGATIVE NEGATIVE Urine cocaine detection NEGATIVE NEGATIVE Urine amphetamines detection by screening method NEGATIVE NEGATIVE Urine methamphetamine detection by screening method NEGATIVE NEGATIVE Urine cannabinoids detection by screening method POSITIVE NEGATIVE Urine opiates detection by screening method NEGATIVE NEGATIVE Urine barbiturates detection NEGATIVE NEGATIVE Screening urine tricyclic antidepressants detection NEGATIVE NEGATIVE Urine methadone detection by screening method NEGATIVE NEGATIVE Urine oxycodone detection NEGATIVE NEGATIVE Urine propoxyphene detection NEGATIVE NEGATIVE Encounters ACCT No. Visit Date/Time Discharge Status Pt. Type Provider Facility Loc./Unit Complaint [id number] 03/30/2017 21:09:00 03/31/2017 06:40:00 DIS Outpatient BRANT DENT APRN [facility] SLEEP G47.10 HYPERSOMNIA [id number] 12/10/2016 09:50:00 01/16/2017 09:13:00 DIS Outpatient HARPAL WATTS [facility] REHAB SLAP LESION L SHOULDER [id number] 12/17/2016 14:15:00 12/17/2016 23:59:59 CLS Preadmit XIN JOSHUA MD [facility] CARD I25.10 [id number] 09/17/2016 13:14:00 12/16/2016 00:01:00 DIS Outpatient XIN JOSHUA MD [facility] CARD I25.10 [id number] 11/26/2016 09:41:00 11/26/2016 23:59:59 CLS Outpatient ALIYA LLAMAS MD [facility] RAD DDU [id number] 11/06/2016 07:00:00 11/06/2016 23:59:59 CLS Preadmit XIN JOSHUA MD [facility] CARD I25.10 [id number] 10/17/2016 12:17:00 10/17/2016 23:59:59 CLS Outpatient XIN JOSHUA MD [facility] CARD I25.10 [id number] 10/04/2016 12:53:00 10/04/2016 23:59:59 CLS Outpatient 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 [facility] RAD M25.512 LEFT ANTERIOR SHOULDER PAIN [id number] 09/17/2016 13:00:00 09/17/2016 23:59:59 CLS Preadmit XIN JOSHUA MD [facility] CARD I25.10 [id number] 09/04/2016 11:05:00 09/04/2016 12:30:00 DIS Emergency MARYLOU MATA DO [facility] ER IRR HEART RATE [id number] 09/01/2016 09:21:00 09/01/2016 23:59:59 CLS Outpatient 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 [facility] RAD M54.2 [id number] 08/29/2016 09:54:00 08/29/2016 23:59:59 CLS Preadmit 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 [facility] RAD M54.2 [id number] 08/20/2016 01:25:00 08/20/2016 14:20:00 DIS Inpatient FLAVIO HERNANDEZ, MERCED Jordan [facility] ICU INTENTIONAL DRUG OVERDOSE ; SUICIDE ATTEMPT; UTI [id number] 11/18/2015 15:43:00 11/18/2015 23:59:59 CLS Outpatient ROOPA LE APRN [facility] RAD LESION R KIDNEY [id number] 10/31/2015 13:39:00 10/31/2015 23:59:59 CLS Outpatient ROOPA LE APRN [facility] RAD DIARRHEA,ABD PAIN, DEHYDRATION [id number] 10/27/2015 11:10:00 10/27/2015 23:59:59 CLS Outpatient ROOPA LE APRN [facility] SDC DIARRHEA,DEHYDRATON, [id number] 05/21/2015 08:31:00 05/21/2015 23:59:59 CLS Outpatient MARK MCCORMICK [facility] LAB HTN,DM,ED [id number] 02/02/2015 06:00:00 02/02/2015 12:15:00 DIS Outpatient PATRICIA PEOPLES MD [facility] SDC CHOLECYSTITIS/VENTAL HERNIA [id number] 01/28/2015 13:10:00 01/28/2015 23:59:59 CLS Outpatient PATRICIA PEOPLES MD [facility] PREOP CHOLICYSTITIS/ VENTRAL HERNIA [id number] 01/25/2015 09:27:00 01/25/2015 23:59:59 CLS Outpatient MARK MCCORMICK 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 [facility] RAD LOW BACK PAIN [id number] 01/25/2015 17:25:00 01/25/2015 19:38:00 DIS Emergency TETO KENNEDY APRN [facility] ER LOWER BACK PAIN [id number] 12/02/2013 13:55:00 12/02/2013 23:59:59 CLS Outpatient [id number] 11/07/2013 07:15:00 11/07/2013 23:59:59 CLS Outpatient OBIE ROSENBERG MD [facility] 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 MED USE NON -INSULIN DEP DM, HTN [id number] 02/17/2013 04:15:00 02/17/2013 23:59:59 CLS Outpatient MARK MCCORMICK 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 [facility] LAB ABNORMAL GLUCOSE, ROUTINE EXAM [id number] 07/02/2011 06:23:00 Document Registration [id number] 06/01/2011 00:00:00 Document Registration [id number] 05/18/2011 06:03:00 Document Registration [id number] 03/02/2011 11:22:00 Document Registration [id number] 12/01/2010 08:48:00 Document Registration [id number] 11/07/2010 13:15:00 Document Registration [id number] 11/02/2010 09:15:00 Document Registration [id number] 10/31/2010 10:30:00 Document Registration [id number] 09/13/2010 06:05:00 Document Registration [id number] 09/06/2010 16:27:00 Document Registration [id number] 07/26/2010 07:35:00 Document Registration [id number] 06/26/2010 22:50:00 Document Registration [id number] 10/28/2009 00:23:00 Document Registration
[2017-05-02] MEDS ORDERED: ENOXAPARIN 100 MG/1 ML (LOVENOX) SYR SC ONE (17:00)
[2017-05-02] MEDS ORDERED: ASPIRIN 81 MG CHEW (CHILDREN'S ASA) PO ONE (17:00)
--- NOTE | 2017-05-02 17:07 | ED Cardiac General ---
History of Present Illness General Chief Complaint: Cardiac/General Problems Stated Complaint: DIZZINESS,ABNORMAL EKG Source: patient History of Present Illness Time seen by provider: 16:50 Initial Comments PT ARRIVES VIA POV--SENT HERE FROM [facility] , NO CALL PT C/O RAPID, IRREGULAR HEART BEAT X 2 DAYS C/O DIZZINESS AND WEAKNESS NO CHEST PAIN C/O MILD SHORTNESS OF BREATH NO SWELLING IN LEGS/ FEET OR PAIN IN CALVES NO FEVER/SWEATS/CHILLS NO COUGH PT HAS HISTORY OF ATRIAL FIBRILLATION--HAS BEEN OUT OF TOPROL X 2 DAYS. PT DOES NOT TAKE ASPIRIN OR COUMADIN--HAS NOT BEEN ON EITHER FOR 7-8 YEARS, PER PT PT HAS CONTINUED TO WORK ALL DAY YESTERDAY AND TODAY--WORKS AT [employer]. PT BRINGS IN EKG THAT WAS DONE AT [facility]--ATRIAL FIB WITH RVR, RATE 167 PCP: [facility] Allergies and Home Medications Allergies Coded Allergies: sitagliptin (Verified Allergy, Unknown, 08/20/16) Home Medications Albuterol Sulfate 6.7 Gm Hfa.aer.ad, 2 PUFF INH Q4H PRN for SHORTNESS OF BREATH, (Reported) Atorvastatin Calcium 10 Mg Tablet, 10 MG PO HS, (Reported) Lisinopril 20 Mg Tablet, 20 MG PO DAILY, (Reported) Metformin Hcl 1,000 Mg Tablet, 1,000 MG PO BID, (Reported) Multivitamin 1 Each Tablet, 1 TAB PO DAILY, (Reported) Review of Systems Constitutional: see HPI, No chills, No diaphoresis, dizziness, No fever EENTM: No Symptoms Reported Respiratory: See HPI, Shortness of Air Cardiovascular: See HPI, Denies Chest Pain, Denies Edema, Irregular Heart Rate , Lightheadedness, Palpitations, Denies Syncope Gastrointestinal: No Symptoms Reported, Denies Nausea, Denies Vomiting Genitourinary: No Symptoms Reported Musculoskeletal: no symptoms reported Skin: no symptoms reported Psychiatric/Neurological: No Symptoms Reported Endocrine: No Symptoms Reported Hematologic/Lymphatic: No Symptoms Reported Past Oywwvqo-Loknpr-Vviwsb Hx Patient Social History Alcohol Use: Rarely Uses Recreational Drug Use: No Drug of Choice: Pot Smoking Status: Never a Smoker 2nd Hand Smoke Exposure: Yes Recent Hopitalizations: Yes Immunizations Up To Date Date of Pneumonia Vaccine: Feb 11, 2012 Seasonal Allergies Seasonal Allergies: No Surgeries History of Surgeries: Yes (RIGHT ELBOW X2 FOR TENDONITIS; BACK SURGERY X 2; LIPOMA REMOVED FROM BACK; BILATERAL CARPAL TUNNEL; UMBILICAL HERNIA REPAIR) Surgeries: Abdominal, Adenoidectomy, Gallbladder, Orthopedic, Tonsillectomy Respiratory History of Respiratory Disorde: No Cardiovascular History of Cardiac Disorders: Yes (HX OF A-FIB, NOT ON COUMADIN OR ASPIRIN) Cardiac Disorders: Atrial Fibrillation, High Cholesterol, Hypertension Neurological History of Neurological Disord: No Reproductive System Hx Reproductive Disorders: No Sexually Transmitted Disease: No HIV/AIDS: No Genitourinary History of Genitourinary Disor: No Gastrointestinal History of Gastrointestinal Di: Yes Gastrointestinal Disorders: Gastroesophageal Reflux, Gall Bladder Disease Musculoskeletal History of Musculoskeletal Dis: Yes (BILATERAL CARPAL TUNNEL REPAIR; BACK SURGERY X 2; RIGHT ELBOW SURGERY X 2 FOR TENDONITIS) Musculoskeletal Disorders: Arthritis, Back Injury, Chronic Back Pain Endocrine History of Endocrine Disorders: Yes Endocrine Disorders: Diabetes, Non-Insulin dep HEENT History of HEENT Disorders: Yes (ALL TEETH REMOVED) Cancer History of Cancer: No Psychosocial History of Psychiatric Problem: Yes Behavioral Health Disorders: Anxiety, Suicide Attempts, Depression Integumentary History of Skin or Integumenta: No Blood Transfusions History of Blood Disorders: No Physical Exam Vital Signs Vital Sign - Last 12Hours 05/02/17 05/02/17 16:50 17:07 Temp 97.4 Pulse 112 Resp 11 B/P (MAP) 153/93 (113) Pulse Ox 96 O2 Delivery Nasal Cannula O2 Flow Rate 2.00 Capillary Refill : General Appearance: No Apparent Distress, WD/WN, Other HEENT: PERRL/EOMI, Other (EDENTULOUS) Neck: Full Range of Motion, Normal Inspection, Non Tender, Supple, No Carotid Bruit, No JVD Respiratory: Normal Breath Sounds, No Accessory Muscle Use, No Respiratory Distress Cardiovascular: No Edema, No JVD, No Murmur, Normal Peripheral Pulses, Irregularly Irregular, Tachycardia Gastrointestinal: Normal Bowel Sounds, No Organomegaly, No Pulsatile Mass, Non Tender, Soft Extremity: Normal Capillary Refill, Normal Inspection, Normal Range of Motion, Non Tender, No Calf Tenderness, No Pedal Edema Neurologic/Psychiatric: Alert, Oriented x3, No Motor/Sensory Deficits, Normal 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, 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 Norm as Tested Skin: Normal Color, Warm/Dry, Tattoos/Piercings (MULTIPLE TATTOOS ) Progress/Results/Core Measures Results/Orders Lab Results Laboratory Tests Test 05/02/17 17:00 05/02/17 17:29 Range/Units White Blood Count 10.3 4.3-11.0 10^3/uL Red Blood Count 5.40 4.35-5.85 10^6/uL Hemoglobin 15.7 13.3-17.7 G/DL Hematocrit 46 40-54 % Mean Corpuscular Volume 86 80-99 FL Mean Corpuscular Hemoglobin 29 25-34 PG Mean Corpuscular Hemoglobin Concent 34 32-36 G/DL Red Cell Distribution Width 12.7 10.0-14.5 % Platelet Count 124 L 130-400 10^3/uL Mean Platelet Volume 10.5 H 7.4-10.4 FL Neutrophils (%) (Auto) 60 42-75 % Lymphocytes (%) (Auto) 25 12-44 % Monocytes (%) (Auto) 9 0-12 % Eosinophils (%) (Auto) 6 0-10 % Basophils (%) (Auto) 0 0-10 % Neutrophils # (Auto) 6.1 1.8-7.8 X 10^3 Lymphocytes # (Auto) 2.6 1.0-4.0 X 10^3 Monocytes # (Auto) 0.9 0.0-1.0 X 10^3 Eosinophils # (Auto) 0.6 H 0.0-0.3 10^3/uL Basophils # (Auto) 0.0 0.0-0.1 10^3/uL Prothrombin Time 12.5 12.2-14.7 SEC INR Comment 0.9 0.8-1.4 Activated Partial Thromboplast Time 22 L 24-35 SEC B-Type Natriuretic Peptide 20.9 <100.0 PG/ML Sodium Level 138 135-145 MMOL/L Potassium Level 5.0 3.6-5.0 MMOL/L Chloride Level 103 98-107 MMOL/L Carbon Dioxide Level 24 21-32 MMOL/L Anion Gap 11 5-14 MMOL/L Blood Urea Nitrogen 14 7-18 MG/DL Creatinine 0.83 0.60-1.30 MG/DL Estimat Glomerular Filtration Rate > 60 BUN/Creatinine Ratio 17 Glucose Level 127 H 70-105 MG/DL Calcium Level 9.5 8.5-10.1 MG/DL Magnesium Level 1.8 1.8-2.4 MG/DL Total Bilirubin 0.8 0.1-1.0 MG/DL Aspartate Amino Transf (AST/SGOT) 38 H 5-34 U/L Alanine Aminotransferase (ALT/SGPT) 35 0-55 U/L Alkaline Phosphatase 67 40-136 U/L Total Creatine Kinase 254 H 30-200 U/L Creatine Kinase MB 2.5 <6.6 NG/ML Troponin I < 0.30 <0.30 NG/ML Total Protein 7.9 6.4-8.2 GM/DL Albumin 4.2 3.2-4.5 GM/DL Amylase Level 57 25-125 U/L Lipase 29 8-78 U/L TSH [place] Testing 2.26 0.35-4.94 UIU/ML My Orders Orders - MARSHA HALL DO Amylase (05/02/17 16:57) Cbc With Automated Diff (05/02/17 16:57) Comprehensive Metabolic Panel (05/02/17 16:57) Creatine Kinase (05/02/17 16:57) Creatine Kinase Mb (05/02/17 16:57) Lipase (05/02/17 16:57) Partial Thromboplastin Time (05/02/17 16:57) Protime With Inr (05/02/17 16:57) Troponin I (05/02/17 16:57) Chest 1 View, Ap/Pa Only (05/02/17 16:57) O2 (05/02/17 16:57) Ekg Tracing (05/02/17 16:57) Aspirin Chewable Tablet (Baby Aspirin Ch (05/02/17 17:00) BNP (05/02/17 16:57) Monitor-Rhythm Ecg Trace Only (05/02/17 16:57) Saline Lock/Iv-Start (05/02/17 16:57) Magnesium (05/02/17 16:57) Thyroid Analyzer (05/02/17 16:57) Enoxaparin Injection (Lovenox Injection) (05/02/17 17:00) Metoprolol Succinate (Xl) Tab (Toprol Xl (05/02/17 17:15) Diltiazem Injection (Cardizem Injection) (05/02/17 17:15) Acetaminophen Tablet (Tylenol Tablet) (05/02/17 18:15) Ekg Tracing (05/02/17 18:37) Medications Given in ED Current Medications Medications Dose Ordered Sig/Kameron Route Start Time Stop Time Status Last Admin Dose Admin Acetaminophen 1,000 mg ONCE ONCE PO 05/02/17 18:15 05/02/17 18:16 DC 05/02/17 18:22 1,000 MG Aspirin 324 mg ONCE ONCE PO 05/02/17 17:00 05/02/17 17:01 DC 05/02/17 17:15 324 MG Diltiazem HCl 10 mg ONCE ONCE IVP 05/02/17 17:15 05/02/17 17:21 DC 05/02/17 17:36 10 MG Enoxaparin Sodium 100 mg ONCE ONCE SC 05/02/17 17:00 05/02/17 17:01 DC 05/02/17 17:16 100 MG Vital Signs/I&O Vital Sign - Last 12Hours 05/02/17 05/02/17 05/02/17 16:50 17:07 18:53 Temp 97.4 Pulse 112 78 Resp 11 20 B/P (MAP) 153/93 (113) Pulse Ox 96 98 99 O2 Delivery Nasal Cannula O2 Flow Rate 2.00 Progress Note : Progress Note HEART RATE 150'S AND IRREGULAR ON ARRIVAL--A FIB WITH RVR, THEN SHORTLY AFTER ARRIVAL, BECAME MORE REGULAR AND RATE DOWN TO 110-120, SHOWING SINUS TACH ON MONITOR AND ON EKG--PRIOR TO TREATMENT RATE DOWN TO 80'S AND IN NSR, WITH BP IN 120'S/80'S NO DETERIORATION IN PT'S CONDITION DURING ER STAY PT HAD NO COMPLAINTS DURING ER STAY PT STATES HE HAS MEDICATIONS TO BE PICKED UP AT [facility]. ECG Initial ECG Impression Time: 17:02 Initial ECG Rate: 111 Initial ECG Rhythm: S.Tach Initial ECG Comparisson: No Previous ECG Available EKG : EKG Time: 18:41 Rate: 83 Rhythm: Normal Sinus Intervals: Normal Diagnostic Imaging Comments CXR--NO ACUTE PROCESS, PER RADIOLOGIST REPORT @ 1754 Reviewed: Reviewed by Me Departure Impression Impression: Primary Impression: Atrial fibrillation with rapid ventricular response Disposition: 01 HOME, SELF-CARE Condition: Improved Departure-Patient Inst. Referrals: XIN JOSHUA MD NO,LOCAL PHYSICIAN (PCP) Primary Care Physician [facility] Patient Instructions: Atrial Fibrillation (DC) Add. Discharge Instructions: DO NOT MISS DOSES OF YOUR MEDICATIONS!!!! FOLLOW UP WITH [facility] IN 1-2 DAYS FOR RECHECK FOLLOW UP WITH DR. JOSHUA NEXT WEEK FOR FURTHER CARE RETURN TO ER IF WORSE All discharge instructions reviewed with patient and/or family. Voiced understanding. MARSHA HALL DO May 02, 2017 17:07
[2017-05-02] MEDS ORDERED: DILTIAZEM 25 MG/5 ML INJ (CARDIZEM) VIAL IVP ONE (17:15)
[2017-05-02] MEDS ORDERED: meTOproloL SUCCINATE 50 MG (TOPROL XL) TAB PO SCH (17:15)
[2017-05-02 17:20] LABS: BASOPHILS % (AUTO) 0 % (0-10); EOSINOPHILS # (AUTO) 0.6 10^3/uL (0.0-0.3); EOSINOPHILS % (AUTO) 6 % (0-10); LYMPHOCYTES # (AUTO) 2.6 X 10^3 (1.0-4.0); LYMPHOCYTES % (AUTO) 25 % (12-44); MEAN CORPUSCULAR HEMOGLOBIN 29 PG (25-34); MEAN CORPUSCULAR HGB CONC 34 G/DL (32-36); MEAN CORPUSCULAR VOLUME 86 FL (80-99); MEAN PLATELET VOLUME 10.5 FL (7.4-10.4); MONOCYTES # (AUTO) 0.9 X 10^3 (0.0-1.0); MONOCYTES % (AUTO) 9 % (0-12); NEUTROPHILS # (AUTO) 6.1 X 10^3 (1.8-7.8); NEUTROPHILS % (AUTO) 60 % (42-75); PLATELET COUNT 124 10^3/uL (130-400); RED CELL DISTRIBUTION WIDTH 12.7 % (10.0-14.5); WHITE BLOOD COUNT 10.3 10^3/uL (4.3-11.0)
[2017-05-02 17:32] LABS: INR 0.9 (0.8-1.4); PROTHROMBIN TIME PATIENT 12.5 SEC (12.2-14.7)
--- NOTE | 2017-05-02 17:51 | Diagnostic Imaging Report ---
INDICATION: Irregular heart rate FINDINGS: The lungs are clear. The heart size and vascularity are normal. There is no effusion or pneumothorax. Stable likely calcified right lower lung nodule unchanged. IMPRESSION: Stable findings from August. No acute feature or change Dictated by: Dictated on workstation # [id number]
[2017-05-02 18:06] LABS: ALANINE AMINOTRANSFERASE 35 U/L (0-55); ALBUMIN 4.2 GM/DL (3.2-4.5); AMYLASE 57 U/L (25-125); ANION GAP 11 MMOL/L (5-14); ASPARTATE AMINO TRANSFERASE 38 U/L (5-34); BILIRUBIN,TOTAL 0.8 MG/DL (0.1-1.0); BLOOD UREA NITROGEN 14 MG/DL (7-18); BUN/CREATININE RATIO 17; CALCIUM 9.5 MG/DL (8.5-10.1); CARBON DIOXIDE 24 MMOL/L (21-32); CHLORIDE 103 MMOL/L (98-107); CREATINE KINASE 254 U/L (30-200); CREATININE SERUM 0.83 MG/DL (0.60-1.30); GFR ESTIMATED > 60; GLUCOSE 127 MG/DL (70-105); LIPASE 29 U/L (8-78); MAGNESIUM 1.8 MG/DL (1.8-2.4); SODIUM 138 MMOL/L (135-145); TOTAL PROTEIN 7.9 GM/DL (6.4-8.2)
[2017-05-02] MEDS ORDERED: ACETAMINOPHEN 500 MG TAB (TYLENOL) PO ONE (18:15)
[2017-05-02 18:25] LABS: TROPONIN I < 0.30 NG/ML (<0.30)
[2017-05-02 18:53] VITALS: BP 142/97
== END 2017-05-02 18:53 | disposition home or self-care (01) ==
LOC: EDUNIT# 16:50 → ER 16:52
DX: I48.91 Unspecified atrial fibrillation (principal); I10 Essential (primary) hypertension; E78.00 Pure hypercholesterolemia, unspecified; K21.9 Gastro-esophageal reflux disease without esophagitis; E11.9 Type 2 diabetes mellitus without complications; F41.9 Anxiety disorder, unspecified; F32.9 Major depressive disorder, single episode, unspecified; Z91.5 Personal history of self-harm; Z79.84 Long term (current) use of oral hypoglycemic drugs; Z77.22 Contact with and (suspected) exposure to environmental tobacco smoke (acute) (chronic); Z87.19 Personal history of other diseases of the digestive system; Z98.890 Other specified postprocedural states; Z90.89 Acquired absence of other organs
CPT/HCPCS: 36415; 71010; 80053; 82150; 82550; 82553; 83690; 83735; 83880; 84443; 84484; 85025; 85610; 85730; 93005; 93041

== ENCOUNTER 2017-05-16 20:02 | Outpatient (CLI) | payer SELFPAY ==
[~2017-05-16 20:02] MED LIST changes: +ACHD5005 PO; -HYDR-3812 PO
== END 2017-05-17 05:10 | disposition home or self-care (01) ==
LOC: SLEEP 20:02
PROVIDERS: ATTEND Nurse Practitioner Family
DX: G47.10 Hypersomnia, unspecified (principal); R06.83 Snoring; I10 Essential (primary) hypertension
CPT/HCPCS: 95811

== ENCOUNTER → 2018-10-08 | Outpatient (CLI) | payer MEDICARE ==
[~2018-10-08] MED LIST changes: -CITA20TA7 PO; +CITA20TA9 PO; -OXYC-197 PO; +OXYC1TAB87 PO
--- NOTE | 2018-10-08 14:50 | Diagnostic Imaging Report ---
PROCEDURE: MR imaging cervical spine without contrast. TECHNIQUE: Multiplanar, multisequence MR imaging of the cervical spine was performed without contrast. INDICATION: Bilateral arm pain and neck pain as well as headaches. COMPARISON: Correlation is made with prior MRI of the cervical spine from 09/01/2016. FINDINGS: Curvature of the cervical spine is normal. Minimal retrolisthesis of C4 on C5 is similar to prior exam. Marrow signal intensity is unremarkable. Multilevel degenerative disc disease with desiccation and disc space narrowing is again noted and similar to prior study. Cervical cord again demonstrates normal homogeneous signal intensity and normal morphology. Craniocervical junction is unremarkable. C2-C3: No central canal or neural foraminal stenosis is detected. C3-C4: Uncovertebral joint degenerative change particularly on the right is noted resulting in moderate neural foraminal stenosis. Milder left neural foraminal narrowing is seen. Central canal is widely patent. C4-C5: Broad-based endplate osteophyte formation indents the ventral thecal sac, similar to prior study. Moderate central canal stenosis is again noted with moderate left and mild right neural foraminal stenosis. C5-C6: Neuroforamina are patent bilaterally. There is some endplate osteophytes indenting the ventral thecal sac. Very mild central canal narrowing is seen. C6-C7: There are some endplate osteophytes posteriorly but no significant central canal or neural foraminal stenosis is seen. C7-T1: Unremarkable. IMPRESSION: Cervical spondylosis described level by level above. There is most marked C4-C5 level where there is central canal or neural foraminal stenosis. Overall appearance of the cervical spine is very similar to examination from 09/01/2016. Dictated by: Dictated on workstation # [id number]
== END ==
LOC: RAD 12:09
PROVIDERS: ATTEND Orthopaedic Surgery
DX: M50.10 Cervical disc disorder with radiculopathy, unspecified cervical region (principal); M25.78 Osteophyte, vertebrae; M48.02 Spinal stenosis, cervical region; M47.22 Other spondylosis with radiculopathy, cervical region; M75.111 Incomplete rotator cuff tear or rupture of right shoulder, not specified as traumatic; M75.112 Incomplete rotator cuff tear or rupture of left shoulder, not specified as traumatic
CPT/HCPCS: 72141

== ENCOUNTER → 2018-10-24 | Outpatient (CLI) | payer MEDICARE | LOC: CARD 13:38 | PROVIDERS: ATTEND Internal Medicine Cardiovascular Disease | DX: E78.2 Mixed hyperlipidemia (principal); I34.0 Nonrheumatic mitral (valve) insufficiency; R00.2 Palpitations; E11.9 Type 2 diabetes mellitus without complications; I10 Essential (primary) hypertension | CPT/HCPCS: 93306 ==

== ENCOUNTER 2018-11-05 12:26 | Outpatient (CLI) | payer MEDICARE ==
[~2018-11-05] VITALS: Ht 182.9 cm; Wt 98.5 kg
[2018-11-05 12:47] VITALS: BP 143/78
[2018-11-05] MEDS ORDERED: CELE100C84 PO (12:59)
[2018-11-05] MEDS ORDERED: METF-399 PO (12:59)
[2018-11-05] MEDS ORDERED: METO-370 PO (12:59)
[2018-11-05] MEDS ORDERED: TRAM50TA2 PO (12:59)
[2018-11-05] MEDS ORDERED: GING550C4 PO (12:59)
[2018-11-05] MEDS ORDERED: TIZA4CAP8 PO (12:59)
[2018-11-05] MEDS ORDERED: MULT1TAB69 PO (12:59)
[2018-11-05] MEDS ORDERED: GARL10002 PO (12:59)
== END 2018-11-05 12:50 | disposition home or self-care (01) ==
LOC: PREOP 12:26
PROVIDERS: ATTEND Orthopaedic Surgery
DX: Z01.818 Encounter for other preprocedural examination (principal)
CPT/HCPCS: 87081

== ENCOUNTER 2018-11-12 07:12 | Day surgery (SDC) | payer MEDICARE ==
--- NOTE | 2018-11-03 16:09 | HISTORY AND PHYSICAL ---
DATE OF SERVICE: ADMISSION HISTORY AND PHYSICAL This will be for outpatient surgery on 11/12/2018 for left shoulder arthroscopy with rotator cuff repair and biceps tenodesis. HISTORY OF PRESENT ILLNESS: The patient is a 58-year-old right-hand dominant gentleman with complaints of left shoulder pain and weakness. He also has known multilevel cervical spine stenosis. An MRI was obtained of the left shoulder, which revealed a SLAP tear and rotator cuff tear. He understands that surgical fixation of the shoulder would not alleviate his neck symptoms. Due to weakness and activity limitations; however, he has elected to proceed with surgical intervention. REVIEW OF SYSTEMS: No chest pain, no shortness of breath. No dysuria. PAST MEDICAL HISTORY: Allergic rhinitis, asthma, back pain, diabetes type 2, hyperlipidemia, hypertension, arthritis, cervical stenosis. PAST SURGICAL HISTORY: Bilateral carpal tunnel release, cholecystectomy, lumbar spine, tonsillectomy, right elbow and left shoulder cyst excision. FAMILY HISTORY: Significant for COPD, ischemic heart disease. PRIMARY CARE PROVIDER: [facility]. MEDICATIONS: Metformin, lisinopril, atorvastatin, ProAir, tizanidine, metoprolol, Cialis, tramadol, Celebrex, garlic oil, myriam root, and sathya. ALLERGIES: JANUVIA. SOCIAL HISTORY: The patient denies alcohol, tobacco and drug use. PHYSICAL EXAMINATION: GENERAL: The patient is a well-developed, well-nourished, in no acute distress. HEENT: Normocephalic, atraumatic. Pupils are equal, round and reactive to light. Oropharynx is clear. NECK: Supple. No lymphadenopathy. LUNGS: Clear to auscultation bilaterally. HEART: Regular rate and rhythm. ABDOMEN: Soft, nontender, nondistended. EXTREMITIES: The left shoulder demonstrates active forward elevation of 170 degrees, external rotation to 85 degrees, internal rotation to 70 degrees. He has a positive Neer's and positive Carrasco sign, positive Wood's maneuver. He has weakness with abduction and external rotation. He also has a positive Spurling's maneuver. IMPRESSION: Left shoulder rotator cuff tear and superior labral tear from anterior to posterior tear. PLAN Left shoulder arthroscopy with biceps tenodesis and open rotator cuff repair. The risks, benefits, options, ramifications for recovery were discussed at length with the patient. He understands and wishes to proceed. Job ID: [id number] DocumentID: [id number] Dictated Date: 11/03/2018 09:05:40 Ultrasonic Cleaner Date: 11/03/2018 11:04:54 Dictated By: SAI HARRIS MD
[2018-11-12] VITALS (11 sets, daily range): BP systolic 123–146; BP diastolic 72–93
[~2018-11-12] VITALS: Ht 182.9 cm; Wt 98.5 kg
[~2018-11-12 07:12] MED LIST changes: +CELE100C84 PO; +GARL10002 PO; +GING550C4 PO; +METF-399 PO; +METO-370 PO; +MULT1TAB69 PO; +TIZA4CAP8 PO
[2018-11-12] MEDS ORDERED: LACTATED RINGERS 1,000 ML IV PRN (07:18)
--- NOTE | 2018-11-12 07:28 | Progress Note-Pre Operative ---
Pre-Operative Progress Note H&P Reviewed The H&P was reviewed, patient examined and no changes noted. Date Seen by Provider: Nov 12, 2018 Time Seen by Provider: 07:28 Date H&P Reviewed: Nov 12, 2018 Time H&P Reviewed: : Pre-Operative Diagnosis: left rotator cuff and SLAP tears SAI HARRIS MD Nov 12, 2018 07:28
[2018-11-12] MEDS ORDERED: oxyCODONE/APAP 5/325MG (PERCOCET 5) TABLET PO PRN (07:30)
[2018-11-12] MEDS ORDERED: ceFAZolin INJECTION 1,000 MG in WATER (STERILE) FOR INJECTION 10 ML IV ONE (07:30)
--- NOTE | 2018-11-12 07:31 | Progress Note-Post Operative ---
Post-Operative Progess Note Surgeon (s)/Hand Spray Operator (s) Surgeon SAI HARRIS MD Hand Spray Operator: Juan Carlos Dacosta Pre-Operative Diagnosis left rotator cuff and SLAP tears Post-Operative Diagnosis left rotator cuff, SLAP and labral tears Procedure & Operative Findings Date of Procedure 11/12/18 Procedure Performed/Findings left shoulder arthroscopic labral debridement, acromioplasty, open rotator cuff repair and biceps tenodesis Anesthesia Type GETA plus interscalene Estimated Blood Loss Estimated blood loss (mL): minimal Specimens/Packing Specimens Removed none Packing: none SAI HARRIS MD Nov 12, 2018 07:31
[2018-11-12] MEDS ORDERED: BUPIVACAINE 0.25% 30 ML (SENSORCAINE) VIAL ONE (07:36)
[2018-11-12] MEDS ORDERED: morphine PF (DURAMORPH) 10 MG/10 ML AMP ONE (07:36)
[2018-11-12] MEDS ORDERED: MIDAZOLAM 2 MG/2 ML (VERSED) VIAL ONE (08:38)
[2018-11-12] MEDS ORDERED: proPOfol 200 MG/20 ML (DIPRIVAN) VIAL IV ONE (08:57)
[2018-11-12] MEDS ORDERED: fentaNYL INJECTION 100 MCG/2 ML AMP ONE (08:57)
[2018-11-12] MEDS ORDERED: ONDANSETRON 4 MG/2 ML (SDV) Z0FRAN ONE (08:57)
[2018-11-12] MEDS ORDERED: ROCURONIUM 10 MG/ML 5 ML SYRINGE IV ONE (08:57)
[2018-11-12] MEDS ORDERED: LIDOCAINE PF 2% 5 ML (XYLOCAINE) VIAL ONE (08:57)
[2018-11-12] MEDS ORDERED: SEVOFLURANE (ULTANE) 15 ML INHAL SOLN ONE ×5 (08:58→10:27)
[2018-11-12] MEDS ORDERED: ROPIVACAINE 5MG/ML 30ML VIAL ONE (08:58)
[2018-11-12] MEDS ORDERED: PHENYLEPHRINE 100 MCG/ML 10 ML (ANESTHESIA) SYR ONE (09:28)
[2018-11-12] MEDS ORDERED: MEPERIDINE (DEMEROL) INJ 50 MG/ML IVP ONE (10:45)
[2018-11-12] MEDS ORDERED: ONDANSETRON 4 MG/2 ML (SDV) Z0FRAN IVP PRN (10:45)
[2018-11-12] MEDS ORDERED: morphine INJ 10 MG/ML 1ML (SYR OR VIAL) IVP ONE (10:45)
[2018-11-12] MEDS ORDERED: PROMETHAZINE INJ 25 MG/ML (PHENERGAN) AMP IVP ONE (10:45)
[2018-11-12] MEDS ORDERED: HYDROmorphone 2 MG/ML VIAL (DILAUDID) IV ONE (10:45)
--- NOTE | 2018-11-12 11:30 | NUR ---
TO AMB SURG FROM PAR PER CART. ALERT, DENIES COMPLAINTS. LEFT ARM IN SLING, POLAR CARE ON, ABLE TO MOVE LEFT HAND/FINGERS AND FEEL TOUCH. CAP REFILL <3 SECONDS, SKIN PINK, WARM. TAPED GAUZE/ABD DSG D/I TO LEFT SHOULDER. PO FLUIDS PROVIDED. BED LOW, LOCKED, RAILS UP X2. CALL LIGHT TO PT AND SISTER IN ROOM.
--- NOTE | 2018-11-12 11:41 | Progress Note-Standard ---
Standard Progress Note Progress Notes/Assess & Plan Date Seen by a Provider: Nov 12, 2018 Time Seen by a Provider: 07:35 Progress/Assessment & Plan Post dated noted from [id number]: Patient in [facility] present for [facility] scope with RCR by Dr. Royal. Upon my preop visit and auscultation, the patient was noted to have a fast heart rate and irregular rhythm. I ordered an EKG which showed A Fib with HR 100-130. The patient has a history of A Fib, dated back to 2010, but has not had any a fib since then. The patient is no longer on blood thinners and takes Metoprolol, which he took this am. The patient denies any SOB, chest pain, or other symptoms. Patient is normally followed by Dr. Ramirez, who actually cleared him for surgery on 10/30/18 when the patient was in [facility]. Dr. Ramirez is out of town and Dr. Siddiqui is sales operations analyst so I paged Dr. Siddiqui. We discussed the patient's condition, including the risks for proceeding with surgery as opposed to withholding surgery and scheduling at a later date. The risks were explained to the patient and he wished to proceed. Dr. Siddiqui gave me recommendations to make the patient an appointment with him on Saturday11/14/18, which is scheduled, and to send him home on Cartia XT and Eliquis. Prescriptions were written by KAY Randhawa for those medications per Dr. Siddiqui's recommendati on. SWETHA MALDONADO CRNA Nov 12, 2018 11:41
[2018-11-12] MEDS ORDERED: APIX5TAB PO (12:07)
[2018-11-12] MEDS ORDERED: DILT180C54 PO (12:07)
[2018-11-12] MEDS ORDERED: OXYC-471 PO (12:10)
--- NOTE | 2018-11-12 12:45 | NUR ---
NO CHANGE IN PAIN/SITE/CMS ASSESSMENTS. HAS BEEN UP WITH ASSIST TO BR, GAIT STEADY. STATES HE IS READY FOR DISMISSAL.
--- NOTE | 2018-11-12 13:34 | Anesthesia-General Post-Op ---
General Patient Condition Mental Status/LOC: Same as Preop Cardiovascular: Satisfactory Nausea/Vomiting: Absent Respiratory: Satisfactory Pain: Controlled Complications: Absent Post Op Complications Complications None Follow Up Care/Instructions Patient Instructions None needed. Anesthesia/Patient Condition Patient Condition Patient is doing well, no complaints, stable vital signs, no apparent adverse anesthesia problems. No complications reported per nursing. SWETHA MALDONADO CRNA Nov 12, 2018 13:34
--- NOTE | 2018-11-12 14:46 | OPERATIVE REPORT ---
DATE OF SERVICE: 11/12/2018 PREOPERATIVE DIAGNOSES: 1. Left shoulder rotator cuff tear. 2. Left shoulder SLAP tear. 3. Left shoulder labral tear. POSTOPERATIVE DIAGNOSES: 1. Left shoulder rotator cuff tear. 2. Left shoulder SLAP tear. 3. Left shoulder labral tear. PROCEDURES PERFORMED: 1. Left shoulder open rotator cuff repair. 2. Left shoulder biceps tenodesis. 3. Left shoulder arthroscopic labral debridement. 4. Left shoulder arthroscopic acromioplasty. SURGEON: Justino Royal MD EXPERIMENTAL WORKER: Juan Carlos Dacosta, who assisted throughout the procedure and closed the incisions. ANESTHESIA: General endotracheal plus interscalene nerve block by Luciano Chand CRNA. ESTIMATED BLOOD LOSS: Minimal. DRAINS: None. COMPLICATIONS: None. POSTOPERATIVE PLAN: Sling wear and passive range of motion for 4 weeks. The patient was transported to the recovery room awake and in stable condition. STATEMENT OF MEDICAL NECESSITY: The patient is a 58-year-old right hand dominant gentleman with longstanding left shoulder pain and weakness. An MRI revealed a full-thickness supraspinatus tear as well as a SLAP tear. In addition, the patient has significant cervical disk disease and was counseled that treatment of his shoulder pathology would not alleviate his cervical symptoms. Due to weakness and functional impairment, the patient elected to proceed with surgical intervention. Examination under anesthesia revealed full forward elevation of 170 degrees, external rotation of 85 degrees, internal rotation of 80 degrees. Arthroscopic findings demonstrated a 2 x 1 cm full thickness supraspinatus tear. The remainder of the rotator cuff was intact. There were diffuse grade I-II chondral softening of the central portion of the humeral head with no unstable chondral flaps. The biceps anchor demonstrated a type 2 SLAP tear. In addition, there was an anterior labral flap at the 9 o'clock position. The remainder of the capsule labral complex was intact. The subacromial space demonstrated moderate bursitis with sloping of the anterior and lateral acromion. PROCEDURE IN DETAIL: After risks and benefits of procedure were discussed and questions were answered, an informed consent was signed and placed in the chart. The operative site was confirmed in the preoperative holding area initialed by the surgeon. The patient was transported to the operating room and after adequate levels of regional plus general endotracheal anesthetic were obtained, a timeout was called confirming the operative site. Examination under anesthesia was performed with the above findings noted. The left shoulder and upper extremity were prepped and draped in the usual sterile fashion. The shoulder joint was injected with 20 mL of fluid as well as subacromial space. A standard posterior portal was placed. Under direct visualization, an anterior portal was created in the interval between the biceps, subscapularis and glenoid. The biceps anchor was released and the stump was debrided with a shaver. The anterior labral flap was debrided with the shaver as well. The scope was then redirected in the subacromial space. Lateral portal was created. A bursectomy was performed and the acromion was planed to a flat type 1 acromion. The lateral portal was then extended. The deltoid was split in line with its fibers. The rotator cuff tear was mobilized and a single corkscrew anchor was placed just off the articular surface. Modified Von-Ketan repair was performed with good approximation obtained. The wound was copiously irrigated and the deltoid was closed in a [id number] interrupted fashion using #2 FiberWire. The wound was further irrigated. A 2-0 Vicryl was used to close the subcutaneous tissue and the portal sites and skin were closed with 4-0 nylon. An incision was then made just distal to the pectoralis insertion on the upper medial arm. The round soft tissues were carefully dissected. Long head of the biceps was brought into the wound through blunt dissection and then whipstitched from the musculotendinous junction proximally approximately 3 cm. The excessive tendon was resected. The sutures were passed through the biceps button. A unicortical drill hole was then carefully made just distal to the pectoralis in the bicipital groove. The button was then passed and flipped. This brought the tendon down to the bony surface and this was oversewn around itself and tied. The shoulder and elbow was taken through range of motion and the repair was stable. The wound was copiously irrigated. A 2-0 Vicryl was used to reapproximate the subcutaneous tissue. The skin was closed with 4-0 nylon in a running alternating horizontal mattress fashion. A sterile dressing and sling were applied and the patient was transported to the recovery room awake and in stable condition. Job ID: [id number] DocumentID: [id number] Dictated Date: 11/12/2018 10:32:08 Heat Treater Head Date: 11/12/2018 14:45:42 Dictated By: JUSTINO ROYAL MD
== END 2018-11-12 12:56 | disposition home or self-care (01) ==
LOC: SDC 07:12
PROVIDERS: ATTEND Orthopaedic Surgery
DX: M75.102 Unspecified rotator cuff tear or rupture of left shoulder, not specified as traumatic (principal); S43.432A Superior glenoid labrum lesion of left shoulder, initial encounter; J45.909 Unspecified asthma, uncomplicated; E11.9 Type 2 diabetes mellitus without complications; E78.5 Hyperlipidemia, unspecified; I10 Essential (primary) hypertension; M19.91 Primary osteoarthritis, unspecified site; M48.02 Spinal stenosis, cervical region; I48.91 Unspecified atrial fibrillation; F41.9 Anxiety disorder, unspecified; K21.9 Gastro-esophageal reflux disease without esophagitis; F32.9 Major depressive disorder, single episode, unspecified; Z79.899 Other long term (current) drug therapy; Z79.84 Long term (current) use of oral hypoglycemic drugs
CPT/HCPCS: 82962; 93005

== ENCOUNTER → 2019-11-20 | Outpatient (CLI) | payer MEDICARE ==
[~2019-11-20] MED LIST changes: +APIX5TAB PO; +DILT180C54 PO; -METO-370 PO; +METO50TA7 PO; +MULT-567 PO; -MULT1TAB69 PO; +OXYC-471 PO; -TRAM50TA2 PO; +TRM50T PO
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
== END ==
LOC: RAD 08:06
PROVIDERS: ATTEND Physician Assistant
DX: S83.282A Other tear of lateral meniscus, current injury, left knee, initial encounter (principal); M17.12 Unilateral primary osteoarthritis, left knee; V29.9XXA Motorcycle rider (driver) (passenger) injured in unspecified traffic accident, initial encounter
CPT/HCPCS: 73721

== ENCOUNTER 2020-12-07 10:51 | Emergency (ER) | payer OTHER ==
[~2020-12-07] VITALS: Ht 182.9 cm; Wt 90.7 kg
[~2020-12-07 10:51] MED LIST changes: -LISI-552 PO; +LISI20TA26 PO; -OXYC-471 PO; +OXYC1TAB11 PO
[2020-12-07 11:00] VITALS: BP 114/84
[2020-12-07 12:14] LABS: BASOPHILS % (AUTO) 0 % (0-10); EOSINOPHILS # (AUTO) 0.8 10^3/uL (0.0-0.3); EOSINOPHILS % (AUTO) 5 % (0-10); HEMATOCRIT 52 % (40-54); HEMOGLOBIN 16.7 g/dL (13.3-17.7); LYMPHOCYTES # (AUTO) 2.2 10^3/uL (1.0-4.0); LYMPHOCYTES % (AUTO) 16 % (12-44); MEAN CORPUSCULAR HEMOGLOBIN 29 pg (25-34); MEAN CORPUSCULAR HGB CONC 32 g/dL (32-36); MEAN CORPUSCULAR VOLUME 90 fL (80-99); MEAN PLATELET VOLUME 10.6 fL (9.0-12.2); MONOCYTES # (AUTO) 0.9 10^3/uL (0.0-1.0); MONOCYTES % (AUTO) 7 % (0-12); NEUTROPHILS # (AUTO) 10.2 10^3/uL (1.8-7.8); NEUTROPHILS % (AUTO) 72 % (42-75); PLATELET COUNT 315 10^3/uL (130-400); WHITE BLOOD COUNT 14.2 10^3/uL (4.3-11.0)
[2020-12-07] MEDS ORDERED: LACTATED RINGERS 1,000 ML IV ONE (12:15)
[2020-12-07] MEDS ORDERED: dilTIAZem DRIP PRE-MIX 125 ML IV SCH (12:15)
[2020-12-07 12:17] LABS: ALBUMIN 4.3 GM/DL (3.2-4.5)
[2020-12-07 12:19] LABS: CALCIUM 9.7 MG/DL (8.5-10.1)
[2020-12-07 12:20] LABS: PROTHROMBIN TIME PATIENT 13.6 SEC (12.2-14.7); TOTAL PROTEIN 7.9 GM/DL (6.4-8.2)
[2020-12-07 12:24] LABS: CREATININE SERUM 1.11 MG/DL (0.60-1.30)
[2020-12-07 12:27] LABS: MAGNESIUM 1.5 MG/DL (1.6-2.4)
[2020-12-07 12:37] LABS: BAND NEUTROPHILS 1 %; EOSINOPHILS % (MANUAL) 5 %; LYMPHOCYTES % (MANUAL) 21 %; MONOCYTES % (MANUAL) 4 %; NEUTROPHILS % (MANUAL) 69 %; RBC MORPH NORMAL
--- NOTE | 2020-12-07 12:49 | Diagnostic Imaging Report ---
Clinical indication: Patient status post fall. Exam: Portable chest x-ray upright view. Comparisons: Chest x-ray dated 05/02/2017. Findings: Lungs/pleura: Small calcified granuloma in the right lower lobes again seen. Increased lung markings of both lungs are again noted. Lungs are clear. There is no pneumothorax. There is no pleural effusion. Mediastinum: Unremarkable. Pulmonary vasculature: Unremarkable. Heart: Unremarkable. Bones/extrathoracic soft tissue: Unremarkable. Impression: Stable chest x-ray exam with no interval radiographic evidence of acute cardiopulmonary process. Dictated by: Dictated on workstation # [id number]
--- NOTE | 2020-12-07 13:05 | Diagnostic Imaging Report ---
CLINICAL INDICATION: Patient status post fall with nose pain. EXAM: Head CT without IV contrast with sagittal and coronal reformations. Axial CT scan of the maxillofacial structures without contrast with sagittal and coronal reformatted images. Axial CT scan of the cervical spine with sagittal and coronal reformations. Auto Exposure Controls were utilized during the CT exam to meet ALARA standards for radiation dose reduction. COMPARISON: None. FINDINGS: Head CT and maxillofacial CT: There is no evidence of acute cerebral infarct, intracranial hemorrhage, or gross mass effect. The brain parenchymal volume appears appropriate for patient's age. Mild chronic small vessel ischemic changes are noted. There is normal tirado-white matter distinction. There is no significant midline shift or herniation. There is no evidence of hydrocephalus. The basal cisterns are unremarkable. There is a comminuted and impacted fracture of the right and left nasal bones. There is a displaced fracture of the frontal process of the left maxilla. There is a comminuted fracture of the bony nasal septum seen mid to posteriorly and superiorly. There is superimposed chronic appearing rightward nasal septal deviation. There is soft tissue swelling adjacent to the nose. The orbits and globes are intact. There is no other skull or maxillofacial fracture seen as visualized. There is mild mucosal thickening involving both maxillary sinuses and ethmoid sinus and frontal sinus. Cervical spine: There is no acute cervical spine fracture or dislocation. There are cervical spine vertebral body spurs and facet arthropathy. There is no significant neck soft tissue abnormality. Visualized upper lung melton are clear. IMPRESSION: 1: There is no evidence of intracranial hemorrhage. 2: There are comminuted and impacted fractures of the right and left nasal bones and fracture of the frontal process of the left maxilla. There is a comminuted fracture of the bony nasal septum seen in its midportion and posteriorly. 3: There is no other skull or maxillofacial fracture. Orbits and globes are intact. 4: There is cervical spine degenerative disease, but no acute fracture or dislocation. Dictated by: Dictated on workstation # [id number]
--- NOTE | 2020-12-07 14:18 | ED Cardiac General ---
History of Present Illness General Chief Complaint: Trauma-Non Activation Stated Complaint: FALL;FACE LAC Nursing Triage Note: PT FELL OF SIDE OF BED INJURING FACE Source: patient Exam Limitations: no limitations History of Present Illness Date Seen by Provider: Dec 07, 2020 Time Seen by Provider: 12:08 Initial Comments This is 60-year-old gentleman presents to the emergency room with primary complaint of syncope causing him to fall out of his bed from sitting position and strike his face on the floor. Patient had just woken up and sat up. He then promptly lost consciousness and fell forward. He has evident injury to his face. He is noted to have atrial fibrillation with RVR on the monitor. He reports having history of A. fib for which she takes metoprolol. It was noted that he has previously been prescribed Cardizem and anticoagulants. He cannot clearly explain to me why he no longer takes these medications. It is unclear whether he simply finished what he had and did not renew them or if he was instructed to stop them. Patient also complains of chronic diarrhea for which she has been treated in the outpatient setting. Patient states Dr. Ford is his primary care provider. However, he also has been going to the [facility] walk-in clinic. Patient denies any traumatic neck pain or injury at this time. Patient is diabetic but does not use insulin. He has not checked his blood sugar yet this morning. Allergies and Home Medications Allergies Coded Allergies: sitagliptin (Verified Allergy, Unknown, 08/20/16) Home Medications Albuterol Sulfate 6.7 Gm Hfa.aer.ad, 2 PUFF INH Q4H PRN for SHORTNESS OF BREATH, (Reported) Apixaban 5 Mg Tablet, 5 MG PO BID Prescribed by: ESTRELLITA NIÑO on 11/12/181206 Atorvastatin Calcium 10 Mg Tablet, 10 MG PO HS, (Reported) Celecoxib 100 Mg Capsule, 100 MG PO DAILY, (Reported) Diltiazem HCl 180 Mg Cap.er.24h, 180 MG PO DAILY Prescribed by: ESTRELLITA NIÑO on 11/12/181206 Garlic 1,000 Mg Capsule, 1,000 MG PO DAILY, (Reported) Mleissa Root 550 Mg Capsule, 550 MG PO DAILY, (Reported) Lisinopril 20 Mg Tablet, 20 MG PO DAILY, (Reported) Metformin HCl 1,000 Mg Tablet, 1,000 MG PO BID, (Reported) Metoprolol Succinate 50 Mg Tab.er.24h, 50 MG PO HS, (Reported) Multivitamin 1 Each Tablet, 1 EACH PO DAILY, (Reported) Oxycodone HCl/Acetaminophen 1 Each Tablet, 1 TAB PO Q4H PRN for PAIN-SEVERE Prescribed by: ESTRELLITA NIÑO on 11/12/18 1210 Tizanidine HCl 4 Mg Capsule, 4 MG PO BID, (Reported) Tramadol HCl 50 Mg Tablet, 100 MG PO BID, (Reported) take 2 (50mg) tab Patient Home Medication List Home Medication List Reviewed: Yes Review of Systems Review of Systems Constitutional: no symptoms reported EENTM: See HPI Respiratory: No Symptoms Reported Cardiovascular: See HPI Gastrointestinal: No Symptoms Reported Genitourinary: No Symptoms Reported Musculoskeletal: see HPI Skin: no symptoms reported Psychiatric/Neurological: See HPI Endocrine: No Symptoms Reported Hematologic/Lymphatic: No Symptoms Reported Past Cnflwbk-Zjgqnv-Wllggv Hx Patient Social History Tobacco Use?: No Smoking Status: Never a Smoker Substance use?: Yes Substance type: Marijuana Substance frequency: Couple times a week Alcohol Use?: No Pt feels they are or have been: No Immunizations Up To Date First/Initial COVID19 Vaccinat: 12/02/2020 COVID19 Vaccine Board Finisher: Unocoin Seasonal Allergies Seasonal Allergies: Yes Past Medical History Surgeries: Yes (back sx x2, R elbow, bilat CTR, lipoma removed) Abdominal, Adenoidectomy, Gallbladder, Orthopedic, Tonsillectomy Respiratory: No (allergy induced asthma) Cardiac: Yes (HX OF A-FIB-not issue since 2010) Atrial Fibrillation, High Cholesterol, Hypertension Neurological: No Reproductive Disorders: No Sexually Transmitted Disease: No HIV/AIDS: No Genitourinary: No Gastrointestinal: Yes Gastroesophageal Reflux Musculoskeletal: Yes Arthritis, Back Injury, Chronic Back Pain Endocrine: Yes Diabetes, Non-Insulin dep HEENT: Yes (ALL TEETH REMOVED) Cancer: No Psychosocial: Yes Anxiety, Suicide Attempts, Depression Integumentary: No Blood Disorders: No Physical Exam Vital Signs Vital Signs - First Documented 12/07/20 11:00 Temp 36.5 Pulse 103 Resp 16 B/P (MAP) 114/84 (94) O2 Delivery Room Air Capillary Refill : Less Than 3 Seconds Height, Weight, BMI Height: 6'0.00" Weight: 217lbs. 4.0oz. [id number]; 27.00 BMI Method:Stated General Appearance: No Apparent Distress, WD/WN HEENT: PERRL/EOMI, Other (Disfigurement of the nose with ecchymosis and epistaxis. A dentulous) Neck: Normal Inspection, Non Tender, Supple Respiratory: Lungs Clear, Normal Breath Sounds, No Accessory Muscle Use, No Respiratory Distress Cardiovascular: No Edema, Normal Peripheral Pulses, Irregularly Irregular, Tachycardia Gastrointestinal: Non Tender, Soft Extremity: Normal Inspection, No Pedal Edema Neurologic/Psychiatric: Alert, Oriented x3, No Motor/Sensory Deficits, Normal Mood/Affect, test borer II-XII Norm as Tested Skin: Normal Color, Warm/Dry, Ecchymosis Progress/Results/Core Measures Results/Orders Lab Results Laboratory Tests Test 12/07/20 11:14 Range/Units White Blood Count 14.2 H 4.3-11.0 10^3/uL Red Blood Count 5.79 H 4.30-5.52 10^6/uL Hemoglobin 16.7 13.3-17.7 g/dL Hematocrit 52 40-54 % Mean Corpuscular Volume 90 80-99 fL Mean Corpuscular Hemoglobin 29 25-34 pg Mean Corpuscular Hemoglobin Concent 32 32-36 g/dL Red Cell Distribution Width 13.1 10.0-14.5 % Platelet Count 315 130-400 10^3/uL Mean Platelet Volume 10.6 9.0-12.2 fL Immature Granulocyte % (Auto) 1 % Neutrophils (%) (Auto) 72 42-75 % Lymphocytes (%) (Auto) 16 12-44 % Monocytes (%) (Auto) 7 0-12 % Eosinophils (%) (Auto) 5 0-10 % Basophils (%) (Auto) 0 0-10 % Neutrophils # (Auto) 10.2 H 1.8-7.8 10^3/uL Lymphocytes # (Auto) 2.2 1.0-4.0 10^3/uL Monocytes # (Auto) 0.9 0.0-1.0 10^3/uL Eosinophils # (Auto) 0.8 H 0.0-0.3 10^3/uL Basophils # (Auto) 0.0 0.0-0.1 10^3/uL Immature Granulocyte # (Auto) 0.1 0.0-0.1 10^3/uL Neutrophils % (Manual) 69 % Lymphocytes % (Manual) 21 % Monocytes % (Manual) 4 % Eosinophils % (Manual) 5 % Band Neutrophils 1 % Blood Morphology Comment NORMAL Prothrombin Time 13.6 12.2-14.7 SEC INR Comment 1.0 0.8-1.4 Activated Partial Thromboplast Time 29 24-35 SEC Sodium Level 135 135-145 MMOL/L Potassium Level 5.0 3.6-5.0 MMOL/L Chloride Level 105 98-107 MMOL/L Carbon Dioxide Level 19 L 21-32 MMOL/L Anion Gap 11 5-14 MMOL/L Blood Urea Nitrogen 27 H 7-18 MG/DL Creatinine 1.11 0.60-1.30 MG/DL Estimat Glomerular Filtration Rate 68 BUN/Creatinine Ratio 24 Glucose Level 191 H 70-105 MG/DL Calcium Level 9.7 8.5-10.1 MG/DL Corrected Calcium 9.5 8.5-10.1 MG/DL Magnesium Level 1.5 L 1.6-2.4 MG/DL Total Bilirubin 1.0 0.1-1.0 MG/DL Aspartate Amino Transf (AST/SGOT) 20 5-34 U/L Alanine Aminotransferase (ALT/SGPT) 23 0-55 U/L Alkaline Phosphatase 67 40-136 U/L Myoglobin 65.7 10.0-92.0 NG/ML Troponin I < 0.028 <0.028 NG/ML Total Protein 7.9 6.4-8.2 GM/DL Albumin 4.3 3.2-4.5 GM/DL My Orders Orders - RIMMA AMARO MD Ct Head/Face/Cervical Wo (12/07/20 12:08) Cbc With Automated Diff (12/07/20 12:08) Magnesium (12/07/20 12:08) Chest 1 View, Ap/Pa Only (12/07/20 12:08) Ekg Tracing (12/07/20 12:08) Comprehensive Metabolic Panel (12/07/20 12:08) Myoglobin Serum (12/07/20 12:08) Protime With Inr (12/07/20 12:08) Partial Thromboplastin Time (12/07/20 12:08) O2 (12/07/20 12:08) Monitor-Rhythm Ecg Trace Only (12/07/20 12:08) Lipid Panel (12/08/20 06:00) Ed Iv/Invasive Line Start (12/07/20 12:08) Troponin I (12/07/20 12:08) Lactated Ringers (Lr 1000 Ml Iv Solution (12/07/20 12:15) Diltiazem Drip Pre-Mix (Cardizem Drip Pr (12/07/20 12:15) Manual Differential (12/07/20 11:14) Medications Given in ED Current Medications Medications Dose Ordered Sig/Kameron Route Start Time Stop Time Status Last Admin Dose Admin Lactated Ringer's 1,000 ml @ 0 mls/hr Q0M ONCE IV 12/07/20 12:15 12/07/20 12:16 DC 12/07/20 12:23 999 MLS/HR Vital Signs/I&O 12/07/20 11:00 Temp 36.5 Pulse 103 Resp 16 B/P (MAP) 114/84 (94) O2 Delivery Room Air Blood Pressure Mean: 94 Progress Progress Note #1: Progress Note Heart rate is well controlled on Cardizem drip and blood pressure is stable. Patient is still having some bleeding and spitting out some blood clots from posterior nasal oozing. For this reason we will not be giving any aspirin or anticoagulants at this time. I did consult Dr. Cordova by phone and described to the injuries based on the radiologist interpretation of the CT scan. Dr. Cordova does not believe patient needs an inpatient consultation at this time but will s ee him in about a week as an outpatient. No other trauma consultation is necessary at this time. Dr. Siddiqui was agreeable to admission and continued Cardizem drip. We did discuss the issue with delay in antiplatelet and anticoagulant therapy because of the trauma. Case was additionally reviewed with Dr. Aguilar. Patient received a liter of IV fluid as volume depletion from diarrhea is likely a contributor to his syncope. Progress Note #2: Progress Note Patient left AGAINST MEDICAL ADVICE because he felt it was taking too long for him to be transferred to an inpatient bed. I expressed to him my concerns about him leaving with his current injuries and atrial fibrillation with RVR. He expressed his dissatisfaction with the wait for admission to a medical floor. He also stated that no one came into the room and talk to him about anything. However, I was actually in the room multiple times to interview and examine him and explain the situation and admission to him, and I witnessed nursing staff also present in the room multiple times to check on him. Patient was given opportunity to ask questions during my visits with him. He did not ask questions about information he desired such as his blood sugar level clarification on his nasal fracture, yet he complained that these questions were not answered. Patient was in stable condition at the time he left. Inpatient providers were updated. Initial ECG Impression Date: Dec 07, 2020 Initial ECG Impression Time: 12:12 Initial ECG Rhythm: A Fib/Flutter Initial ECG Impression: Atrial Fibrillation w/RVR Comment Atrial fibrillation with RVR. No ischemic ST elevation or depression. Diagnostic Imaging Diagonstic Imaging: CT Plain Films/CT/US/NM/MRI: facial bones, c-spine, head Comments CT viewed by me and report reviewed. See report below: NAME: MARYLOU GOMEZ [facility] REC#: [id number] PT STATUS: ADM IN : 1960 PHYSICIAN: RIMMA AMARO MD ADMIT DATE: 12/07/20/ICU Signed Date of Exam:12/07/20 CT HEAD/FACE/CERVICAL WO CLINICAL INDICATION: Patient status post fall with nose pain. EXAM: Head CT without IV contrast with sagittal and coronal reformations. Axial CT scan of the maxillofacial structures without contrast with sagittal and coronal reformatted images. Axial CT scan of the cervical spine with sagittal and coronal reformations. Auto Exposure Controls were utilized during the CT exam to meet ALARA standards for radiation dose reduction. COMPARISON: None. FINDINGS: Head CT and maxillofacial CT: There is no evidence of acute cerebral infarct, intracranial hemorrhage, or gross mass effect. The brain parenchymal volume appears appropriate for patient's age. Mild chronic small vessel ischemic changes are noted. There is normal tirado-white matter distinction. There is no significant midline shift or herniation. There is no evidence of hydrocephalus. The basal cisterns are unremarkable. There is a comminuted and impacted fracture of the right and left nasal bones. There is a displaced fracture of the frontal process of the left maxilla. There is a comminuted fracture of the bony nasal septum seen mid to posteriorly and superiorly. There is superimposed chronic appearing rightward nasal septal deviation. There is soft tissue swelling adjacent to the nose. The orbits and globes are intact. There is no other skull or maxillofacial fracture seen as visualized. There is mild mucosal thickening involving both maxillary sinuses and ethmoid sinus and frontal sinus. Cervical spine: There is no acute cervical spine fracture or dislocation. There are cervical spine vertebral body spurs and facet arthropathy. There is no significant neck soft tissue abnormality. Visualized upper lung melton are clear. IMPRESSION: 1: There is no evidence of intracranial hemorrhage. 2: There are comminuted and impacted fractures of the right and left nasal bones and fracture of the frontal process of the left maxilla. There is a comminuted fracture of the bony nasal septum seen in its midportion and posteriorly. 3: There is no other skull or maxillofacial fracture. Orbits and globes are intact. 4: There is cervical spine degenerative disease, but no acute fracture or dislocation. Dictated by: Dictated on workstation # [id number] Dict: 12/07/20 1252 Trans: 12/07/201707 [id number] Interpreted by: MAMI BOND MD Electronically signed by: MAMI BOND MD 12/07/20 1708 Diagonstic Imaging: Xray Plain Films/CT/US/NM/MRI: chest Comments NAME: MARYLOU GOMEZ [facility] REC#: [id number] PT STATUS: ADM IN : 1960 PHYSICIAN: RIMMA AMARO MD ADMIT DATE: 12/07/20/ICU Signed Date of Exam:12/07/20 CHEST 1 VIEW, AP/PA ONLY Clinical indication: Patient status post fall. Exam: Portable chest x-ray upright view. Comparisons: Chest x-ray dated 05/02/2017. Findings: Lungs/pleura: Small calcified granuloma in the right lower lobes again seen. Increased lung markings of both lungs are again noted. Lungs are clear. There is no pneumothorax. There is no pleural effusion. Mediastinum: Unremarkable. Pulmonary vasculature: Unremarkable. Heart: Unremarkable. Bones/extrathoracic soft tissue: Unremarkable. Impression: Stable chest x-ray exam with no interval radiographic evidence of acute cardiopulmonary process. Dictated by: Dictated on workstation # [id number] Dict: 12/07/20 1245 Trans: 12/07/20 1710 [id number] Interpreted by: MAMI BOND MD Electronically signed by: MAMI BOND MD 12/07/200 Departure Communication (Admissions) Time/Spoke to Admitting Phy: 13:45 Dr. Aguilar Time/Spoke to Consulting Phy: 13:40 Dr. Siddiqui Impression Primary Impression: Atrial fibrillation with RVR Additional Impressions: Syncope Qualified Codes: R55 - Syncope and collapse Nasal fracture Qualified Codes: S02.2XXA - Fracture of nasal bones, initial encounter for closed fracture Fall from bed Qualified Codes: W06.XXXA - Fall from bed, initial encounter Chronic diarrhea Disposition: ADMITTED INPATIENT Condition: Improved Admissions Decision to Admit Reason: Admit from ER (General) Decision to Admit/Date: Dec 07, 2020 Time/Decision to Admit Time: 12:08 Departure-Patient Inst. Referrals: [facility]) Primary Care Physician FLOYD HILTON APRN (Family) Primary Care Physician Copy Copies To 1: MARYLOU FORD DO Copies To 2: XIN JOSHUA MD, JOSHUA T MD Dec 07, 2020 14:18
== END 2020-12-07 16:04 | disposition left against medical advice (07) ==
LOC: EDUNIT# 10:51 → ER 10:53 → ICU 14:30 → UNDOADMIN 14:30 → EDLOC 14:30 → UNDODISIN 16:00
DX: S02.2XXA Fracture of nasal bones, initial encounter for closed fracture (principal); I48.20 Chronic atrial fibrillation, unspecified; R55 Syncope and collapse; K52.9 Noninfective gastroenteritis and colitis, unspecified; I10 Essential (primary) hypertension; E78.00 Pure hypercholesterolemia, unspecified; I48.91 Unspecified atrial fibrillation; E11.9 Type 2 diabetes mellitus without complications; G89.29 Other chronic pain; M54.9 Dorsalgia, unspecified; Z79.01 Long term (current) use of anticoagulants; Z79.899 Other long term (current) drug therapy; Z79.84 Long term (current) use of oral hypoglycemic drugs; Z79.891 Long term (current) use of opiate analgesic; W06.XXXA Fall from bed, initial encounter
CPT/HCPCS: 36415; 70450; 70486; 71045; 72125; 80053; 83735; 83874; 84484; 85007; 85027; 85610; 85730; 93005; 93041; 96365; 96366

== ENCOUNTER 2021-10-31 11:57 | Inpatient (IN) | payer MEDICARE, OTHER ==
[~2021-10-31] VITALS: Ht 180 cm; Wt 100.4 kg
[~2021-10-31 11:57] MED LIST changes: +CYCL10TA25 PO; -CYCL10TA9 PO
[2021-10-31 12:21] LABS: BASOPHILS % (AUTO) 0 % (0-10); EOSINOPHILS # (AUTO) 0.3 10^3/uL (0.0-0.3); EOSINOPHILS % (AUTO) 3 % (0-10); HEMATOCRIT 43 % (40-54); LYMPHOCYTES # (AUTO) 2.3 10^3/uL (1.0-4.0); LYMPHOCYTES % (AUTO) 25 % (12-44); MEAN CORPUSCULAR HEMOGLOBIN 29 pg (25-34); MEAN CORPUSCULAR HGB CONC 33 g/dL (32-36); MEAN CORPUSCULAR VOLUME 90 fL (80-99); MONOCYTES # (AUTO) 0.7 10^3/uL (0.0-1.0); MONOCYTES % (AUTO) 7 % (0-12); NEUTROPHILS # (AUTO) 5.9 10^3/uL (1.8-7.8); NEUTROPHILS % (AUTO) 64 % (42-75); PLATELET COUNT 268 10^3/uL (130-400); WHITE BLOOD COUNT 9.3 10^3/uL (4.3-11.0)
[2021-10-31] MEDS: dilTIAZem DRIP PRE-MIX 125 ML IV SCH (12:32)
[2021-10-31 12:35] LABS: INR 1.8 (0.8-1.4); PROTHROMBIN TIME PATIENT 20.9 SEC (12.2-14.7)
[2021-10-31 12:37] LABS: ALBUMIN 3.9 GM/DL (3.2-4.5); POTASSIUM 4.1 MMOL/L (3.6-5.0)
--- NOTE | 2021-10-31 12:38 | Diagnostic Imaging Report ---
Indication: Chest pain Portable chest 12:33 PM Heart size and pulmonary vascularity are normal. Lungs are clear. There are no effusions or pneumothoraces. IMPRESSION: No acute abnormalities in the chest Dictated by: Dictated on workstation # [id number]
[2021-10-31 12:40] LABS: TOTAL PROTEIN 7.1 GM/DL (6.4-8.2)
[2021-10-31 12:41] LABS: BILIRUBIN,TOTAL 0.5 MG/DL (0.1-1.0)
[2021-10-31 12:43] LABS: CREATININE SERUM 0.92 MG/DL (0.60-1.30)
[2021-10-31 12:46] LABS: MAGNESIUM 1.2 MG/DL (1.6-2.4)
--- NOTE | 2021-10-31 13:25 | ED Cardiac General ---
History of Present Illness General Chief Complaint: Cardiac/General Problems Stated Complaint: CHEST PAIN Nursing Triage Note: PT SENT FROM DR. ALLEN OFFICE WITH CHF, A FIB WITH RVR, SOB, AND SWELLING Source: patient Exam Limitations: no limitations (STERLING WESTON APRN) History of Present Illness Date Seen by Provider: Oct 31, 2021 Time Seen by Provider: 12:43 Initial Comments This is a well-appearing 61-year-old male who was referred to the emergency department from his primary care office Dr. Gutierrez for concerns of atrial fibrillation with RVR and congestive heart failure. Patient does have a history of A. fib with CHF. Over the past few days he has been having episodes where he feels "anxious" and states this usually happens whenever his heart rate is fast. States the symptoms just started a few days ago. Over the past month he has noted an 8 pound weight gain. He does follow with Dr. Ramirez for cardiology, his last echo at [facility] on 08/02/2021 showed an ejection fraction of 20%. States he is scheduled to have a Linq monitor placed, his insurance approved him to have it placed by the end of this month. Has mild shortness of breath. No cough, chest pain, nausea, vomiting, diarrhea, abdominal pain. (STERLING WESTON APRN) Allergies and Home Medications Allergies Coded Allergies: sitagliptin (Verified Allergy, Unknown, 08/20/16) Patient Home Medication List Home Medication List Reviewed: Yes (STERLING WESTON APRN) Acetaminophen (Tylenol Extra Strength) 500 Mg Tablet, 1,000 MG PO Q8H PRN for PAIN-MILD (1-4), (Reported) Entered as Reported by: YOBANY RODRÍGUEZ on 10/31/21 154 Last Action: Reviewed Diltiazem HCl (Diltiazem 24Hr ER) 120 Mg Cap.er.24h, 120 MG PO DAILY, (Reported) Entered as Reported by: YOBANY RODRÍGUEZ on 10/31/21 154 Last Action: Reviewed Dulaglutide (Trulicity) 1.5 Mg/0.5 Ml Pen.injctr, 0.75 MG SQ SUN, (Reported) Entered as Reported by: YOBANY RODRÍGUEZ on 10/31/21 1622 Last Action: New Order Ibuprofen (Ibuprofen) 200 Mg Capsule, 400 MG PO Q8H PRN for PAIN-MILD (1-4), (Reported) Entered as Reported by: YOBANY RODRÍGUEZ on 10/31/211540 Last Action: Reviewed Lisinopril (Lisinopril) 20 Mg Tablet, 20 MG PO DAILY, (Reported) Entered as Reported by: ETHEL ESCOBEDO on 08/20/16809 Last Action: Reviewed Meloxicam (Meloxicam) 7.5 Mg Tablet, 7.5 MG PO DAILY, (Reported) Entered as Reported by: YOBANY RODRÍGUEZ on 10/31/211540 Last Action: Reviewed Metformin HCl (Metformin HCl) 1,000 Mg Tablet, 1,000 MG PO BID, (Reported) Entered as Reported by: YUKI ARCE on 11/05/181258 Last Action: Reviewed Metoprolol Succinate (Metoprolol Succinate) 50 Mg Tab.er.24h, 50 MG PO HS, (Reported) Entered as Reported by: YUKI ARCE on 11/05/181258 Last Action: Reviewed Multivitamin (Multivitamins) 1 Each Tablet, 1 EACH PO DAILY, (Reported) Entered as Reported by: YUKI ARCE on 11/05/181258 Last Action: Reviewed Pantoprazole Sodium (Pantoprazole Sodium) 40 Mg Tablet.dr, 40 MG PO DAILY, (Reported) Entered as Reported by: YOBANY RODRÍGUEZ on 10/31/211540 Last Action: Reviewed Rivaroxaban (Xarelto) 20 Mg Tablet, 20 MG PO HS, (Reported) Entered as Reported by: YOBANY RODRÍGUEZ on 10/31/211540 Last Action: Reviewed Terbinafine HCl (Terbinafine HCl) 250 Mg Tablet, 250 MG PO DAILY, (Reported) Entered as Reported by: YOBANY RODRÍGUEZ on 10/31/211540 Last Action: Reviewed Discontinued Medications Albuterol Sulfate (Proventil Hfa) 6.7 Gm Hfa.aer.ad, 2 PUFF INH Q4H PRN for SHORTNESS OF BREATH, (Reported) Discontinued Reason: No Longer Taking Entered as Reported by: ETHEL ESCOBEDO on 08/20/16809 Last Action: Discontinued Apixaban (Eliquis) 5 Mg Tablet, 5 MG PO BID Discontinued Reason: No Longer Taking Prescribed by: ESTRELLITA NIÑO on 11/12/18 1207 Last Action: Discontinued Atorvastatin Calcium (Atorvastatin Calcium) 10 Mg Tablet, 10 MG PO HS, (Reported) Discontinued Reason: No Longer Taking Entered as Reported by: YUKI ARCE on 01/28/15 1358 Last Action: Discontinued Celecoxib (Celecoxib) 100 Mg Capsule, 100 MG PO DAILY, (Reported) Discontinued Reason: No Longer Taking Entered as Reported by: YUKI ARCE on 11/05/18 125 Last Action: Discontinued Diltiazem HCl (Cartia Xt) 180 Mg Cap.er.24h, 180 MG PO DAILY Discontinued Reason: No Longer Taking Prescribed by: ESTRELLITA NIÑO on 11/12/18 1207 Last Action: Discontinued Dulaglutide (Trulicity) 0.75 Mg/0.5 Ml Pen.injctr, Unknown Dose SQ SUN, (Reported) Discontinued Reason: Prescription changed Entered as Reported by: YOBANY RODRÍGUEZ on 10/31/21 1545 Last Action: Reviewed Garlic (Garlic) 1,000 Mg Capsule, 1,000 MG PO DAILY, (Reported) Discontinued Reason: No Longer Taking Entered as Reported by: YUKI ARCE on 11/05/181258 Last Action: Discontinued Melissa Root (Melissa Root) 550 Mg Capsule, 550 MG PO DAILY, (Reported) Discontinued Reason: No Longer Taking Entered as Reported by: YUKI ARCE on 11/05/181258 Last Action: Discontinued Oxycodone HCl/Acetaminophen (Oxycodone-Acetaminophen 5-325) 1 Each Tablet, 1 TAB PO Q4H PRN for PAIN-SEVERE Discontinued Reason: No Longer Taking Prescribed by: ESTRELLITA NIÑO on 11/12/18 1210 Last Action: Discontinued Tizanidine HCl (Tizanidine HCl) 4 Mg Capsule, 4 MG PO BID, (Reported) Discontinued Reason: No Longer Taking Entered as Reported by: YUKI ARCE on 11/05/181258 Last Action: Discontinued Tramadol HCl (Tramadol HCl) 50 Mg Tablet, 100 MG PO BID, (Reported) Discontinued Reason: No Longer Taking Entered as Reported by: YUKI ARCE on 11/05/181258 Last Action: Discontinued Review of Systems Review of Systems Constitutional: see HPI EENTM: No Symptoms Reported Respiratory: See HPI Cardiovascular: See HPI Gastrointestinal: No Symptoms Reported Genitourinary: No Symptoms Reported Musculoskeletal: no symptoms reported Skin: no symptoms reported Psychiatric/Neurological: No Symptoms Reported Endocrine: No Symptoms Reported Hematologic/Lymphatic: No Symptoms Reported (STERLING WESTON APRN) Past Fykovbf-Tlgfbf-Cbkbvx Hx Patient Social History Tobacco Use?: No Smokeless Tobacco Frequency: Current Everyday User Substance use?: Yes Substance type: Marijuana Alcohol Use?: Yes Alcohol type: Beer Alcohol Frequency: Rarely (STERLING WESTON APRN) Immunizations Up To Date First/Initial COVID19 Vaccinat: 12/02/2020 Second COVID19 Vaccination Donis: 12/02/2020 Third COVID19 Vaccination Date: 12/02/2020 (STERLING WESTON APRN) Seasonal Allergies Seasonal Allergies: Yes (STERLING WESTON APRN) Past Medical History Surgery/Hospitalization HX: DIABETIC, CHF, 2 BACK, RT KNEE, GALLBLADDER, BOTH HANDS, RT ELBOW, A FIB Surgeries: Yes (back sx x2, R elbow, bilat CTR, lipoma removed) Abdominal, Adenoidectomy, Gallbladder, Orthopedic, Tonsillectomy Respiratory: No (allergy induced asthma) Cardiac: Yes (HX OF A-FIB-not issue since 2010) Atrial Fibrillation, High Cholesterol, Hypertension Neurological: No Reproductive Disorders: No Sexually Transmitted Disease: No HIV/AIDS: No Genitourinary: No Gastrointestinal: Yes Gastroesophageal Reflux Musculoskeletal: Yes Arthritis, Back Injury, Chronic Back Pain Endocrine: Yes Diabetes, Non-Insulin dep HEENT: Yes (ALL TEETH REMOVED) Cancer: No Psychosocial: Yes Anxiety, Suicide Attempts, Depression Integumentary: No Blood Disorders: No (STERLING WESTON APRN) Physical Exam Vital Signs Vital Signs - First Documented 10/31/21 12:04 Temp 36.0 Pulse 144 Resp 22 B/P (MAP) 131/96 (108) Pulse Ox 96 O2 Delivery Room Air (RIMMA AMARO MD) Vital Signs Capillary Refill : Less Than 3 Seconds (STERLING WESTON APRN) Height, Weight, BMI Height: 6'0.00" Weight: 217lbs. 4.0oz. 98.881243hr; 30.00 BMI Method:Stated General Appearance: No Apparent Distress, WD/WN HEENT: PERRL/EOMI, Normal ENT Inspection, Pharynx Normal Neck: Full Range of Motion, Normal Inspection, Non Tender, Supple Respiratory: No Accessory Muscle Use, No Respiratory Distress, Crackles (bilateral bases ) Cardiovascular: Irregularly Irregular, Tachycardia Gastrointestinal: Normal Bowel Sounds, Non Tender, Soft Extremity: Normal Capillary Refill, Normal Inspection, Normal Range of Motion, Non Tender, Pedal Edema (BLE ) Neurologic/Psychiatric: Alert, Oriented x3, No Motor/Sensory Deficits, Normal Mood/Affect Skin: Normal Color, Warm/Dry (STERLING WESTON APRN) Progress/Results/Core Measures Results/Orders Lab Results Laboratory Tests Test 10/31/21 12:13 Range/Units White Blood Count 9.3 4.3-11.0 10^3/uL Red Blood Count 4.77 4.30-5.52 10^6/uL Hemoglobin 14.0 13.3-17.7 g/dL Hematocrit 43 40-54 % Mean Corpuscular Volume 90 80-99 fL Mean Corpuscular Hemoglobin 29 25-34 pg Mean Corpuscular Hemoglobin Concent 33 32-36 g/dL Red Cell Distribution Width 12.5 10.0-14.5 % Platelet Count 268 130-400 10^3/uL Mean Platelet Volume 10.0 9.0-12.2 fL Immature Granulocyte % (Auto) 0 % Neutrophils (%) (Auto) 64 42-75 % Lymphocytes (%) (Auto) 25 12-44 % Monocytes (%) (Auto) 7 0-12 % Eosinophils (%) (Auto) 3 0-10 % Basophils (%) (Auto) 0 0-10 % Neutrophils # (Auto) 5.9 1.8-7.8 10^3/uL Lymphocytes # (Auto) 2.3 1.0-4.0 10^3/uL Monocytes # (Auto) 0.7 0.0-1.0 10^3/uL Eosinophils # (Auto) 0.3 0.0-0.3 10^3/uL Basophils # (Auto) 0.0 0.0-0.1 10^3/uL Immature Granulocyte # (Auto) 0.0 0.0-0.1 10^3/uL Prothrombin Time 20.9 H 12.2-14.7 SEC INR Comment 1.8 H 0.8-1.4 Activated Partial Thromboplast Time 37 H 24-35 SEC D-Dimer 2.38 H 0.00-0.49 UG/ML Sodium Level 134 L 135-145 MMOL/L Potassium Level 4.1 3.6-5.0 MMOL/L Chloride Level 101 98-107 MMOL/L Carbon Dioxide Level 22 21-32 MMOL/L Anion Gap 11 5-14 MMOL/L Blood Urea Nitrogen 21 H 7-18 MG/DL Creatinine 0.92 0.60-1.30 MG/DL Estimat Glomerular Filtration Rate 95 BUN/Creatinine Ratio 23 Glucose Level 139 H 70-105 MG/DL Calcium Level 9.0 8.5-10.1 MG/DL Corrected Calcium 9.1 8.5-10.1 MG/DL Magnesium Level 1.2 L 1.6-2.4 MG/DL Total Bilirubin 0.5 0.1-1.0 MG/DL Aspartate Amino Transf (AST/SGOT) 24 5-34 U/L Alanine Aminotransferase (ALT/SGPT) 34 0-55 U/L Alkaline Phosphatase 56 40-136 U/L Myoglobin 32.6 10.0-92.0 NG/ML Troponin I < 0.028 <0.028 NG/ML B-Type Natriuretic Peptide 304.2 H <100.0 PG/ML Total Protein 7.1 6.4-8.2 GM/DL Albumin 3.9 3.2-4.5 GM/DL (RIMMA AMARO MD) Vital Signs/I&O 10/31/21 12:04 Temp 36.0 Pulse 144 Resp 22 B/P (MAP) 131/96 (108) Pulse Ox 96 O2 Delivery Room Air (RIMMA AMARO MD) Blood Pressure Mean: 108 Progress Progress Note : Progress Note Patient examined in no acute distress. Cardiac work-up relatively unremarkable, slight elevation in BNP he is A. fib RVR with a rate of 140s to 150s. Cardizem bolus 20 mg IV push with Cardizem drip initiated. Was able to gain good control on his heart rate. Discussed case with Dr. Ramirez and Dr. Stephens. We will go ahead and admit ICU, Cardizem drip. Plan of care reviewed with patient and he is agreeable with plan. (STERLING WESTON APRN) Initial ECG Impression Date: Oct 31, 2021 Initial ECG Impression Time: 12:15 Initial ECG Rate: 146 Initial ECG Rhythm: A Fib/Flutter Initial ECG Impression: Nonspecific Changes (STERLING WESTON APRN) Diagnostic Imaging Diagonstic Imaging: Xray Plain Films/CT/US/NM/MRI: chest Comments [facility] [place] [place], [place] NAME: MARYLOU GOMEZ [facility] REC#: [id number] PT STATUS: REG ER : 1960 PHYSICIAN: STERLING WESTON APRN ADMIT DATE: 10/31/21/ER Signed Date of Exam:10/31/21 CHEST 1 VIEW, AP/PA ONLY Indication: Chest pain Portable chest 12:33 PM Heart size and pulmonary vascularity are normal. Lungs are clear. There are no effusions or pneumothoraces. IMPRESSION: No acute abnormalities in the chest Dictated by: Dictated on workstation # [id number] Dict: 10/31/21 1236 Trans: 10/31/21 1236 TCB [id number] Interpreted by: MIAH MALONE MD Electronically signed by: MIAH MALONE MD 10/31/21 1236 Reviewed: Reviewed by Me (STERLING WESTON APRN) Departure Communication (Admissions) Time/Spoke to Admitting Phy: 13:10 Dr. Gibson Time/Spoke to Consulting Phy: 13:07 Dr. Ramirez (STERLING WESTON APRN) Impression Primary Impression: Atrial fibrillation with RVR Disposition: ADMITTED INPATIENT Condition: Stable Admissions Decision to Admit Reason: Admit from ER (General) Decision to Admit/Date: Oct 31, 2021 Time/Decision to Admit Time: 13:02 (STERLING WESTON APRN) Departure-Patient Inst. Referrals: MARYLOU MYERS DO (PCP/Family) Primary Care Physician ATTENDING PHYSICIAN NOTE: I was physically present as attending physician in the emergency department during the care of this patient, but I was not directly involved in the decision making or delivery of care for this patient. (RIMMA AMARO MD) STERLING WESTON APRN Oct 31, 2021 13:25 RIMMA AMARO MD Nov 02, 2021 07:30
[2021-10-31] MEDS ORDERED: FUROSEMIDE 40 MG/4 ML INJ (LASIX) IVP NR (13:30)
[2021-10-31 14:18] VITALS: BP 131/96
[2021-10-31] MEDS ORDERED: RT-ALBUTEROL/IPRATROPIUM 3 ML (DUONEB) VIAL INH PRN (14:30)
[2021-10-31] MEDS ORDERED: CATHETER FLUSH 10 ML SYR IVP PRN (15:00)
[2021-10-31] MEDS ORDERED: ONDANSETRON 4 MG/2 ML (SDV) Z0FRAN IV PRN (15:00)
[2021-10-31] MEDS: ENOXAPARIN 100 MG/1 ML (LOVENOX) SYR SC SCH (15:03)
[2021-10-31] MEDS: MAGNESIUM 1 GM/100 ML IVPB 100 ML IV SCH ×2 (15:03→16:33)
[2021-10-31] MEDS ORDERED: ACET-2267 PO (15:41)
[2021-10-31] MEDS ORDERED: PANT40TA52 PO (15:41)
[2021-10-31] MEDS ORDERED: TERB250T88 PO (15:41)
[2021-10-31] MEDS ORDERED: RIVA20TA PO (15:41)
[2021-10-31] MEDS ORDERED: MELO7.5T46 PO (15:41)
[2021-10-31] MEDS ORDERED: DILT-27 PO (15:41)
[2021-10-31] MEDS ORDERED: IBUP-2185 PO (15:41)
[2021-10-31] MEDS ORDERED: DULA0.75 SQ (15:45)
[2021-10-31] MEDS ORDERED: DULA1.5P2 SQ (16:22)
--- NOTE | 2021-10-31 16:23 | Consultation-Cardiology ---
HPI-Cardiology Cardiology Consultation Date of Consultation 10/31/21 Date of Admission Time Seen by Provider: 16:18 Indication: Shortness of breath, edema HPI 61-year-old gentleman with a history of paroxysmal atrial fibrillation, has been having increasing shortness of breath, peripheral edema, he was seen by Dr. Ford and referred to the emergency room for evaluation, he was noted to be in atrial fibrillation with rapid ventricular response, he was started on Cardizem drip. On my evaluation he was laying down in bed, heart rate is better controlled. No chest pain was reported, has been having pedal edema. He reported that he has been taking his oral anticoagulation without interruption. Home Medications & Allergies Allergies: Coded Allergies: sitagliptin (Verified Allergy, Unknown, 08/20/16) Home Medication List Reviewed: Yes NFL-Ekylvm-Kjfipy Hx Patient Social History Marital Status: Employed/Student: employed Drug of Choice: Pot Smoking Status: Never a Smoker 2nd Hand Smoke Exposure: Yes Recent Hopitalizations: No Have you traveled recently?: No Alcohol Use?: Yes Substance type: Marijuana Immunizations Up To Date Date of Pneumonia Vaccine: Feb 11, 2012 Past Medical History Discussed below Family Medical History Family Medical Hx Noncontributory Review of Systems-General Review of Systems Constitutional: see HPI, malaise, weakness EENTM: see HPI, no symptoms reported Respiratory: no symptoms reported, see HPI; No cough; dyspnea on exertion; No hemoptysis, No orthopnea, No phlegm, No short of breath, No stridor, No wheezing, No other Cardiovascular: see HPI; No chest pain; edema; No Hx of Intervention; palpitations; No syncope, No vascular heart diseas, No other Gastrointestinal: no symptoms reported, see HPI Genitourinary: no symptoms reported, see HPI Musculoskeletal: no symptoms reported, see HPI Skin: no symptoms reported, see HPI Psychiatric/Neurological: No Symptoms Reported, See HPI Reviewed Test Results Reviewed Test Results Lab Laboratory Tests Test 10/31/21 12:13 Range/Units White Blood Count 9.3 4.3-11.0 10^3/uL Red Blood Count 4.77 4.30-5.52 10^6/uL Hemoglobin 14.0 13.3-17.7 g/dL Hematocrit 43 40-54 % Mean Corpuscular Volume 90 80-99 fL Mean Corpuscular Hemoglobin 29 25-34 pg Mean Corpuscular Hemoglobin Concent 33 32-36 g/dL Red Cell Distribution Width 12.5 10.0-14.5 % Platelet Count 268 130-400 10^3/uL Mean Platelet Volume 10.0 9.0-12.2 fL Immature Granulocyte % (Auto) 0 % Neutrophils (%) (Auto) 64 42-75 % Lymphocytes (%) (Auto) 25 12-44 % Monocytes (%) (Auto) 7 0-12 % Eosinophils (%) (Auto) 3 0-10 % Basophils (%) (Auto) 0 0-10 % Neutrophils # (Auto) 5.9 1.8-7.8 10^3/uL Lymphocytes # (Auto) 2.3 1.0-4.0 10^3/uL Monocytes # (Auto) 0.7 0.0-1.0 10^3/uL Eosinophils # (Auto) 0.3 0.0-0.3 10^3/uL Basophils # (Auto) 0.0 0.0-0.1 10^3/uL Immature Granulocyte # (Auto) 0.0 0.0-0.1 10^3/uL Prothrombin Time 20.9 H 12.2-14.7 SEC INR Comment 1.8 H 0.8-1.4 Activated Partial Thromboplast Time 37 H 24-35 SEC D-Dimer 2.38 H 0.00-0.49 UG/ML Sodium Level 134 L 135-145 MMOL/L Potassium Level 4.1 3.6-5.0 MMOL/L Chloride Level 101 98-107 MMOL/L Carbon Dioxide Level 22 21-32 MMOL/L Anion Gap 11 5-14 MMOL/L Blood Urea Nitrogen 21 H 7-18 MG/DL Creatinine 0.92 0.60-1.30 MG/DL Estimat Glomerular Filtration Rate 95 BUN/Creatinine Ratio 23 Glucose Level 139 H 70-105 MG/DL Calcium Level 9.0 8.5-10.1 MG/DL Corrected Calcium 9.1 8.5-10.1 MG/DL Magnesium Level 1.2 L 1.6-2.4 MG/DL Total Bilirubin 0.5 0.1-1.0 MG/DL Aspartate Amino Transf (AST/SGOT) 24 5-34 U/L Alanine Aminotransferase (ALT/SGPT) 34 0-55 U/L Alkaline Phosphatase 56 40-136 U/L Myoglobin 32.6 10.0-92.0 NG/ML Troponin I < 0.028 <0.028 NG/ML B-Type Natriuretic Peptide 304.2 H <100.0 PG/ML Total Protein 7.1 6.4-8.2 GM/DL Albumin 3.9 3.2-4.5 GM/DL Physical Exam Physical Exam Vital Signs Vital Signs - First Documented 10/31/21 10/31/21 12:04 14:18 Temp 36.0 Pulse 144 Resp 22 B/P (MAP) 131/96 (108) Pulse Ox 96 O2 Delivery Room Air FiO2 21 Capillary Refill : Less Than 3 Seconds Height, Weight, BMI Height: 6'0.00" Weight: 217lbs. 4.0oz. 98.989473ec; 30.86 BMI Method:Stated General Appearance: No Apparent Distress, WD/WN Eyes: Bilateral Eye Normal Inspection, Bilateral Eye PERRL, Bilateral Eye EOMI HEENT: PERRL/EOMI, TMs Normal, Normal ENT Inspection, Pharynx Normal, Moist Mucous Membranes Neck: Full Range of Motion, Normal Inspection, Non Tender, Supple, Carotid Bruit Respiratory: Chest Non Tender, Normal Breath Sounds, No Accessory Muscle Use, No Respiratory Distress Cardiovascular: No Edema, No Gallop, No JVD, Normal Peripheral Pulses, Systolic Murmur, Irregularly Irregular Gastrointestinal: Normal Bowel Sounds, No Organomegaly, No Pulsatile Mass, Non Tender, Soft Back: Normal Inspection, No CVA Tenderness, No Vertebral Tenderness Extremity: Normal Capillary Refill, Normal Inspection, Normal Range of Motion, Non Tender, No Calf Tenderness, Pedal Edema Neurologic/Psychiatric: Alert, Oriented x3, No Motor/Sensory Deficits, Normal Mood/Affect Skin: Normal Color, Warm/Dry Lymphatic: No Adenopathy A/P-Cardiology Admission Diagnosis Paroxysmal atrial fibrillation Peripheral edema Hypertension Hyperlipidemia Assessment/Plan Atrial fibrillation with rapid ventricular response Paroxysmal atrial fibrillation, patient has been maintained on Toprol-XL, digoxin and Cartia. Admitted with atrial fibrillation with rapid ventricular response. I am planning to do YASMEEN and cardioversion while he is on Cardizem drip. He was s tarted on Lovenox during this admission Peripheral edema, worsening edema with mild elevation in BNP. Probably acute left ventricular diastolic dysfunction secondary to atrial fibrillation with rapid ventricular response. Echocardiogram was done in October 2018. Showing normal LV size with EF 50 to 55% with grade 1 diastolic dysfunction left atrium 4.7 cm, I am planning to do YASMEEN tomorrow. Hypertension, monitor blood pressure Coronary artery disease mild per cardiac catheterization in October 2009, small vessel disease nonobstructive disease, currently asymptomatic. Continue to monitor Hyperlipidemia, continue to monitor lipid History of depression and anxiety. Followed by [facility][1] Diabetes mellitus, followed and managed by [facility][1]. Tobaccoism, chewing tobacco, we discussed avoiding tobacco products Status post right knee replacement done on August 04, [address] Pelaez at [facility] XIN JOSHUA MD Oct 31, 2021 16:23
[2021-10-31] MEDS ORDERED: RT-ALBUTEROL HFA 8.5 GM INHALER IH SCH (18:00)
--- NOTE | 2021-10-31 18:21 | Tele-ICU Consult ---
History of Present Illness History of Present Illness Date Seen by Provider: Oct 31, 2021 Time Seen by Provider: 15:23 Date of Admission (Tele-ICU Physician , consultation) Available chart/ vitals / labs / Images reviewed H&P is from ER notes Patient's information available about PMH, Shx, Fhx allergy reviewed in EMR. ROS as per chart and RN report Now in ICU, hemodynamically stable Video assessment done using teleICU camera, rest of exam as per RN Discussed with RN. Consultants: Hospital course: -: 61 y/o M - A Fib RVR - CHF - Cardizem Drip. A/P A fib RVR - known to cardiology =planning YASMEEN / cardioversion - on Cardizem gtt -lovenox full dose 9 on Xarelto PRODUCT TESTER drip. He was started on Lovenox during this admission CHF with RVR, CAD -ECHO 2018. EF 50 to 55% with grade 1 diastolic dysfunction DM II -ISS Lines : (Central Line Necessity Reviewed) [place]: OG: Nutrition: Analgesia: Anxiety/ delirium VTE Prophylaxis: cb full Stress Ulcer Prophylaxis: ppi Plans in collaboration with bedside consultants and IM MDs. Discussed with RN to reach out if any questions or concerns A total of 20minutes of critical care time was devoted to this patient today, required to treat and/or prevent further deterioration of critical care conditio n ( as above ) . Reason for Visit: Shortness of breath, edema Allergies and Home Medications Allergies Coded Allergies: sitagliptin (Verified Allergy, Unknown, 08/20/16) Home Medications Acetaminophen 500 Mg Tablet, 1,000 MG PO Q8H PRN for PAIN-MILD (1-4), (Reported) Diltiazem HCl 120 Mg Cap.er.24h, 120 MG PO DAILY, (Reported) Dulaglutide 1.5 Mg/0.5 Ml Pen.injctr, 0.75 MG SQ SUN, (Reported) Ibuprofen 200 Mg Capsule, 400 MG PO Q8H PRN for PAIN-MILD (1-4), (Reported) Lisinopril 20 Mg Tablet, 20 MG PO DAILY, (Reported) Meloxicam 7.5 Mg Tablet, 7.5 MG PO DAILY, (Reported) Metformin HCl 1,000 Mg Tablet, 1,000 MG PO BID, (Reported) Metoprolol Succinate 50 Mg Tab.er.24h, 50 MG PO HS, (Reported) Multivitamin 1 Each Tablet, 1 EACH PO DAILY, (Reported) Pantoprazole Sodium 40 Mg Tablet.dr, 40 MG PO DAILY, (Reported) Rivaroxaban 20 Mg Tablet, 20 MG PO HS, (Reported) Terbinafine HCl 250 Mg Tablet, 250 MG PO DAILY, (Reported) Past Medical/Social/Family Hx Patient Social History Marrital Status: Employed/Student: employed Tobacco Use?: No Smoking Status: Never a Smoker Smokeless type used: Chew Smokeless Tobacco Frequency: Current Everyday User Use of E-Cig and/or Vaping dev: No Substance use?: Yes Substance type: Marijuana occasionally to help sleep Alcohol Use?: Yes Alcohol type: Beer Alcohol Frequency: Once in a while Pt stated abuse/neglect: No Immunizations Up To Date First/Initial COVID19 Vaccinat: 12/02/2020 Second COVID19 Vaccination Donis: 12/02/2020 Date of Pneumonia Vaccine: Feb 11, 2012 Current Status Advance Directives: No Communicates: Verbally Primary Language: Greenlandic Preferred Spoken Language: Greenlandic Is interpretation needed?: No Implanted or Applied Medical D: None Past Medical History PMHx: DMII HTN HLD Chronic pain from osteoarthritis PSurghx: Carpal tunnel release bilaterally Lumbar disc surgery x 2 Cholecystectomy Tonsillectomy Elbow tendon repair Review of Systems Constitutional: no symptoms reported Focused Exam Height, Weight, BMI Height: 6'0.00" Weight: 217lbs. 4.0oz. 98.407242ne; 30.86 BMI Method:Stated Exam Exam Patient acknowledged, consented, and participated in this virtual visit which was conducted using real time audio/video Vital Signs Date Time Temp Pulse Resp B/P (MAP) Pulse Ox O2 Delivery O2 Flow Rate FiO2 10/31/21 17:00 77 13 113/60 96 Room Air 10/31/21 16:30 68 10 96/68 94 Room Air 10/31/21 16:15 66 11 101/78 96 Room Air 10/31/21 16:10 36.0 10/31/21 16:00 66 14 92/71 95 Room Air 10/31/21 16:00 Room Air 10/31/21 15:45 71 14 96 Room Air 10/31/21 15:15 75 18 83/71 94 Room Air 10/31/21 15:01 80 16 100/75 97 Room Air 10/31/21 14:38 89 10/31/21 14:30 81 21 96/76 96 Room Air 10/31/21 14:30 94 Room Air 10/31/21 14:18 36.0 144 96 21 10/31/21 14:02 107/72 Room Air 10/31/21 14:00 36.1 97 18 114/79 95 Room Air 10/31/21 12:04 36.0 144 22 131/96 (108) 96 Room Air Height & Weight Height: 6'0.00" Weight: 217lbs. 4.0oz. 98.479720ax; 30.86 BMI Method:Stated General Appearance: No Apparent Distress, WD/WN HEENT: PERRL/EOMI, TMs Normal, Normal ENT Inspection, Pharynx Normal, Moist Mucous Membranes Neck: Full Range of Motion, Normal Inspection, Non Tender, Supple, Carotid Bruit Respiratory: Chest Non Tender, Normal Breath Sounds, No Accessory Muscle Use, No Respiratory Distress Cardiovascular: No Edema, No Gallop, No JVD, Normal Peripheral Pulses, Systolic Murmur, Irregularly Irregular Capillary Refill: Less Than 3 Seconds Extremity: Normal Capillary Refill, Normal Inspection, Normal Range of Motion, Non Tender, No Calf Tenderness, Pedal Edema Neurologic/Psychiatric: Alert, Oriented x3, No Motor/Sensory Deficits, Normal Mood/Affect Skin: Normal Color, Warm/Dry Lymphatic: No Adenopathy Results Lab Laboratory Tests 10/31/21 12:13 Assessment/Plan Assessment/Plan JANY BLANCO MD Oct 31, 2021 18:20
--- NOTE | 2021-10-31 19:04 | History & Physical-Hospitalist ---
History of Present Illness HPI/Chief Complaint Gee Engle is a 61 year old male with PMH HTN, T2DM, HLD, CAD, AFib, tobacco abuse, who presented with shortness of breath. He also reports lower extremity swelling. He was evaluated at his PCP office and sent to the ER. He was found to be in AFib with RVR. He denies chest pain. He reports palpitations. He denies fever and chills. He denies cough. He denies abdominal pain. He denies nausea and vomiting. He reports compliance with his medications. Source: patient Exam Limitations: no limitations Date Seen 11/01/21 Time Seen by a Provider: 09:30 Attending Physician Gee Ford DO PCP Admitting Physician: Palmira Gibson MD Attending Physician: Palmira Gibson MD Referring Physician Date of Admission Oct 31, 2021 at 13:10 Home Medications & Allergies Home Medications Reviewed patient Home Medication Reconciliation performed by pharmacy medication reconciliations coil repair technician and/or nursing. Patients Allergies have been reviewed. Allergies Allergies Coded Allergies sitagliptin (Verified Allergy, Unknown, 08/20/16) Past Yzytsvy-Kluyjp-Nxjizg Hx Patient Social History Marrital Status: Employed/Student: employed Tobacco Use?: No Smoking Status: Never a Smoker Smokeless type used: Chew Smokeless Tobacco Frequency: Current Everyday User Use of E-Cig and/or Vaping dev: No Substance use?: Yes Substance type: Marijuana Additional substance use comme: occasionally to help sleep Alcohol Use?: Yes Alcohol type: Beer Alcohol Frequency: Once in a while Pt feels they are or have been: No Immunizations Up To Date First/Initial COVID19 Vaccinat: 12/02/2020 Second COVID19 Vaccination Donis: 12/02/2020 Date of Pneumonia Vaccine: Feb 11, 2012 Seasonal Allergies Seasonal Allergies: Yes Current Status Advance Directives: No Communicates: Verbally Primary Language: Haitian Preferred Spoken Language: Haitian Is interpretation needed?: No Implanted or Applied Medical D: None Past Medical History Surgeries: Abdominal, Adenoidectomy, Gallbladder, Orthopedic, Tonsillectomy Atrial Fibrillation, High Cholesterol, Hypertension Sexually Transmitted Disease: No HIV/AIDS: No Gastroesophageal Reflux Arthritis, Back Injury, Chronic Back Pain Diabetes, Non-Insulin dep Anxiety, Suicide Attempts, Depression Blood Disorders: No PMHx: DMII HTN HLD Chronic pain from osteoarthritis PSurghx: Carpal tunnel release bilaterally Lumbar disc surgery x 2 Cholecystectomy Tonsillectomy Elbow tendon repair Family Medical History No Pertinent Family Hx Review of Systems Constitutional: weakness EENTM: no symptoms reported Respiratory: short of breath Cardiovascular: palpitations Genitourinary: no symptoms reported Musculoskeletal: no symptoms reported Skin: no symptoms reported Psychiatric/Neurological: No Symptoms Reported Physical Exam Physical Exam Vital Signs Vital Signs - First Documented 10/31/21 10/31/21 11/01/21 12:04 14:18 00:29 Temp 36.0 Pulse 144 Resp 22 B/P (MAP) 131/96 (108) Pulse Ox 96 O2 Delivery Room Air O2 Flow Rate 2.00 FiO2 21 Capillary Refill : Less Than 3 Seconds Height, Weight, BMI Height: 6'0.00" Weight: 217lbs. 4.0oz. 98.019502vp; 30.86 BMI Method:Stated General Appearance: No Apparent Distress, Obese HEENT: PERRL/EOMI, Pharynx Normal Neck: Normal Inspection, Supple Respiratory: Lungs Clear, Normal Breath Sounds, No Respiratory Distress Cardiovascular: No Murmur, Irregularly Irregular, Tachycardia Gastrointestinal: Normal Bowel Sounds, Non Tender, Soft Extremity: Normal Inspection, Non Tender, Pedal Edema Neurologic/Psychiatric: Alert, Oriented x3, No Motor/Sensory Deficits, Normal Mood/Affect Skin: Normal Color, Warm/Dry Results Results/Procedures Labs Laboratory Tests 10/31/21 12:13 11/01/21 04:52 Patient resulted labs reviewed. Imaging: Reviewed Imaging Report Assessment/Plan Admission Diagnosis AFib with RVR Admission Status: Observation Assessment and Plan AFib with RVR HTN HLD CAD Cardiology consulted Home meds: Digoxin, Metoprolol, Diltiazem, Xarelto Started on IV Diltiazem Therapeutic Lovenox s/p YASMEEN cardioversion, successful briefly then back in RVR IV Diltiazem stopped Started on Amiodarone IV load Planning for repeat YASMEEN cardioversion later today Continue oral metoprolol and diltiazem T2DM Sliding scale insulin Tobacco abuse Recommend cessation Diagnosis/Problems Diagnosis/Problems (1) Atrial fibrillation with RVR Status: PALMIRA Lemos MD Oct 31, 2021 19:04
[2021-10-31] MEDS: RT-ALBUTEROL SULF 2.5 MG/3 ML PRE-MIX VIAL IH SCH ×2 (19:15→22:24)
[2021-10-31] MEDS: inSUlin ASPART (NovoLOG) 1 UNIT/0.01 ML (CHARGE PER UNIT) SC SCH (20:56)
[2021-10-31] MEDS: CATHETER FLUSH 10 ML SYR IVP SCH (21:01)
[2021-10-31] MEDS: ACETAMINOPHEN 325 MG TABLET PO PRN (23:25)
[2021-11-01] MEDS: ENOXAPARIN 100 MG/1 ML (LOVENOX) SYR SC SCH ×2 (00:27→12:59)
[2021-11-01] MEDS: dilTIAZem DRIP PRE-MIX 125 ML IV SCH (01:11)
[2021-11-01] MEDS: RT-ALBUTEROL SULF 2.5 MG/3 ML PRE-MIX VIAL IH SCH ×2 (02:45→07:53)
[2021-11-01 05:09] LABS: BASOPHILS # (AUTO) 0.1 10^3/uL (0.0-0.1); BASOPHILS % (AUTO) 1 % (0-10); EOSINOPHILS # (AUTO) 0.3 10^3/uL (0.0-0.3); EOSINOPHILS % (AUTO) 4 % (0-10); HEMATOCRIT 42 % (40-54); HEMOGLOBIN 13.2 g/dL (13.3-17.7); LYMPHOCYTES # (AUTO) 2.3 10^3/uL (1.0-4.0); LYMPHOCYTES % (AUTO) 29 % (12-44); MEAN CORPUSCULAR HEMOGLOBIN 29 pg (25-34); MEAN CORPUSCULAR HGB CONC 32 g/dL (32-36); MEAN CORPUSCULAR VOLUME 92 fL (80-99); MEAN PLATELET VOLUME 10.3 fL (9.0-12.2); MONOCYTES # (AUTO) 0.7 10^3/uL (0.0-1.0); MONOCYTES % (AUTO) 8 % (0-12); NEUTROPHILS # (AUTO) 4.7 10^3/uL (1.8-7.8); NEUTROPHILS % (AUTO) 59 % (42-75); PLATELET COUNT 220 10^3/uL (130-400)
[2021-11-01 05:24] LABS: POTASSIUM 3.6 MMOL/L (3.6-5.0)
[2021-11-01 05:25] LABS: CALCIUM 8.9 MG/DL (8.5-10.1)
[2021-11-01] MEDS: CATHETER FLUSH 10 ML SYR IVP SCH ×3 (05:28→20:19)
[2021-11-01] MEDS: inSUlin ASPART (NovoLOG) 1 UNIT/0.01 ML (CHARGE PER UNIT) SC SCH ×4 (05:28→20:19)
[2021-11-01 05:29] LABS: CREATININE SERUM 0.95 MG/DL (0.60-1.30)
[2021-11-01] MEDS ORDERED: NS IV 500 ML 500 ML IV ONE (08:00)
[2021-11-01] MEDS ORDERED: LIDOCAINE 2% VISCOUS 15 ML UDC PO ONE (08:00)
[2021-11-01] MEDS ORDERED: MIDAZOLAM 2 MG/2 ML (VERSED) VIAL ONE (08:44)
[2021-11-01] MEDS ORDERED: AMIODARONE FOR BOLUS 150 MG in NS (IVPB) 100 ML IV NR (09:00)
--- NOTE | 2021-11-01 09:08 | Cardioversion ---
Cardioversion PROCEDURE PHYSICIAN: Xin Ramirez DATE OF PROCEDURE: 11/01/21 DIRECT EXTERNAL ELECTRICAL CARDIOVERSION: Indications: Atrial Fibrillation with rapid ventricular rate Preoperative diagnoses: Atrial Fibrillation with rapid ventricular rate Postoperative diagnosis: Sinus rhythm, Successful Electrical Cardioversion Anesthesia: By Anesthesia services Complications: None Specimen: None Contrast: 0 Flouroscopy: none Procedure Details: The patient was brought the label printer after informed consent was taken, all the risks and complications were explained including the risk of stroke. Electrical cardioversion was carried out with anesthesia support with propofol. 200 joules of synchronized shock was delivered through external patches which promptly restored sinus rhythm. The patient tolerated the procedure well. Conclusions: 1. Successful electrical cardioversion in terminating atrial fibrillation 2. Patient returned to atrial fibrillation few minutes after the cardioversion. Plan: I will load him with amiodarone bolus and a drip, keep him n.p.o. and do another cardioversion today XIN RAMIREZ MD Nov 01, 2021 09:08
[2021-11-01] MEDS ORDERED: proPOfol 200 MG/20 ML (DIPRIVAN) VIAL IV ONE (09:19)
[2021-11-01 09:26] VITALS: BP 113/77
[2021-11-01] MEDS: AMIODARONE INJECTION 450 MG in D5W IV SOLUTION (EXCEL) 250 ML IV SCH ×2 (09:26→17:53)
--- NOTE | 2021-11-01 09:33 | Cardiology Progress Note ---
Subjective Date Seen by Provider: Nov 01, 2021 Time Seen by Provider: 09:31 Subjective/Events-last exam Patient was seen at bedside, laying down comfortably Still having tachycardia. Review of Systems General: No Chills, No Night Sweats; Fatigue; No Malaise, No Appetite, No Other HEENT: No Head Aches, No Visual Changes, No Eye Pain, No Ear Pain, No Dysphasia, No Sinus Congestion, No Post Nasal Drip, No Sore Throat, No Other Pulmonary: No Dyspnea, No Cough, No Pleuritic Chest Pain, No Other Cardiovascular: Edema; No: Chest Pain, Palpitations, Orthopnea, Paroxysmal Noc. Dyspnea, Lt Headedness, Other Objective-Cardiology Exam Last Set of Vital Signs Vital Signs 10/31/21 11/01/21 11/01/21 11/01/21 11/01/21 14:18 06:00 07:43 07:55 09:26 Temp 36.3 Pulse 102 Resp 17 B/P (MAP) 113/77 Pulse Ox 94 O2 Delivery Nasal Cannula O2 Flow Rate 2.00 FiO2 21 I&O Intake and Output 10/31/21 23:59 Intake Total 1030 ml Output Total 750 ml Balance 280 ml Intake Oral 830 ml IV Total 200 ml Output Urine Total 750 ml # Voids 2 # Bowel Movements 2 Daily Weight Change No General: Alert, Oriented X3, Cooperative HEENT: Atraumatic, PERRLA Neck: Supple, No JVD, No Thyromegaly Lungs: Clear to Auscultation, Normal Air Movement Heart: Normal S1, Normal S2, No Murmurs, Other (Atrial fibrillation) Abdomen: Normal Bowel Sounds, Soft, No Tenderness, No Hepatosplenomegaly, No Masses Extremities: No Clubbing, No Cyanosis, Normal Pulses, No Tenderness/Swelling, Other (+1 pedal edema) Skin: No Rashes, No Breakdown, No Significant Lesion Neuro: Normal Gait, Normal Speech, Strength at 5/5 X4 Ext, Normal Tone, Sensation Intact Psych/Mental Status: Mental Status NL, Mood NL Results Lab Laboratory Tests 10/31/21 12:13 11/01/21 04:52 A/P-Cardiology Admission Diagnosis Paroxysmal atrial fibrillation Peripheral edema Hypertension Hyperlipidemia Assessment/Plan Atrial fibrillation with rapid ventricular response Paroxysmal atrial fibrillation, patient has been maintained on Toprol-XL, digoxin and Cartia. YASMEEN was done showing normal LV size, ejection fraction 45%, dilated left atrium with smoke in the left atrium, no clot or thrombus was seen. Electrical cardioversion was delivered at 9 AM and it was successful initially in terminating atrial fibrillation, later within 5-minute patient returned to atrial fibrillation. I loaded him with amiodarone bolus and a drip and I am planning to repeat cardioversion this afternoon Peripheral edema, worsening edema with mild elevation in BNP. Probably acute left ventricular diastolic dysfunction secondary to atrial fibrillation with rapid ventricular response. Echocardiogram was done in October 2018. Showing normal LV size with EF 50 to 55% with grade 1 diastolic dysfunction left atrium 4.7 cm Given Lasix, mild response Hypertension, monitor blood pressure Coronary artery disease mild per cardiac catheterization in October 2009, small vessel disease nonobstructive disease, currently asymptomatic. Continue to monitor Hyperlipidemia, continue to monitor lipid History of depression and anxiety. Followed by [facility] Diabetes mellitus, followed and managed by [facility]. Tobaccoism, chewing tobacco, we discussed avoiding tobacco products Status post right knee replacement done on August 04, [address] Pelaez at [facility] XIN JOSHUA MD Nov 01, 2021 09:33
[2021-11-01] MEDS ORDERED: RT-ALBUTEROL SULF 2.5 MG/3 ML PRE-MIX VIAL IH PRN (10:30)
--- NOTE | 2021-11-01 11:02 | Tele-ICU Progress Note ---
Subjective Date Seen by a Provider: Nov 01, 2021 Time Seen by a Provider: 11:01 Subjective/Events-last exam (Tele-ICU Physician , Progress Note ) Available chart/ vitals / labs / Images reviewed Video assessment done using teleICU camera, rest of exam as per RN Discussed with RN , EXAM PER RN Events overnight : Afebrile FiO2 - 2 l I/O = even Drips: Pressors: , hemodynamically stable Discussed with RN. Consultants: Hospital course: -: 61 y/o M - A Fib RVR - CHF - Cardizem Drip. 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 EF 50 to 55% with grade 1 diastolic dysfunction DM II -ISS Hypoxia - 2 l NC COPD ? vs asthma - will start long acting ICS/LABA and will change nebs to prn id no severe br- spasm Lines : (Central Line Necessity Reviewed) [place]: void OG: Nutrition: Analgesia: Anxiety/ delirium VTE Prophylaxis: cb full Stress Ulcer Prophylaxis: ppi Plans in collaboration with bedside consultants and IM MDs. Discussed with RN to reach out if any questions or concerns A total of 25 minutes of critical care time was devoted to this patient today, required to treat and/or prevent further deterioration of critical care condition ( as above ) . Sepsis Event Evaluation Height, Weight, BMI Height: 6'0.00" Weight: 217lbs. 4.0oz. 98.972799yb; 30.86 BMI Method:Stated Exam Exam Patient acknowledged, consented, and participated in this virtual visit which was conducted using real time audio/video Vital Signs Date Time Temp Pulse Resp B/P (MAP) Pulse Ox O2 Delivery O2 Flow Rate FiO2 11/01/21 09:26 102 113/77 11/01/21 07:55 94 Nasal Cannula 2.00 11/01/21 07:48 Nasal Cannula 2.00 11/01/21 07:43 36.3 11/01/21 06:00 97 17 99/72 97 Nasal Cannula 2.00 11/01/21 05:00 122 21 99/69 96 Nasal Cannula 2.00 11/01/21 04:00 90 18 101/76 89 Nasal Cannula 2.00 11/01/21 04:00 Nasal Cannula 2.00 11/01/21 03:00 115 16 96/62 95 Nasal Cannula 2.00 11/01/21 02:45 96 Nasal Cannula 2.00 11/01/21 02:30 93 16 88/66 93 Nasal Cannula 2.00 11/01/21 01:00 86 17 86/64 96 Nasal Cannula 2.00 11/01/21 01:00 86 11/01/21 00:29 104 16 92 Nasal Cannula 2.00 11/01/21 00:00 105 15 108/69 89 Room Air 10/31/21 23:44 Room Air 10/31/21 23:00 114 19 131/100 93 Room Air 10/31/21 22:24 97 Room Air 10/31/21 22:00 107 25 106/74 95 Room Air 10/31/21 21:00 140 32 98/71 91 Room Air 10/31/21 20:17 Room Air 10/31/21 20:15 126 18 104/88 95 Room Air 10/31/21 19:47 36.2 10/31/21 19:15 96 Room Air 10/31/21 19:00 72 13 116/95 96 Room Air 10/31/21 19:00 72 10/31/21 18:00 55 26 95/77 95 Room Air 10/31/21 17:00 77 13 113/60 96 Room Air 10/31/21 16:30 68 10 96/68 94 Room Air 10/31/21 16:15 66 11 101/78 96 Room Air 10/31/21 16:10 36.0 10/31/21 16:00 66 14 92/71 95 Room Air 10/31/21 16:00 Room Air 10/31/21 15:45 71 14 96 Room Air 10/31/21 15:15 75 18 83/71 94 Room Air 10/31/21 15:01 80 16 100/75 97 Room Air 10/31/21 14:38 89 10/31/21 14:30 81 21 96/76 96 Room Air 10/31/21 14:30 94 Room Air 10/31/21 14:18 36.0 144 96 21 10/31/21 14:02 107/72 Room Air 10/31/21 14:00 36.1 97 18 114/79 95 Room Air 10/31/21 12:04 36.0 144 22 131/96 (108) 96 Room Air I & O 11/01/21 07:00 Intake Total 1080 ml Output Total 2050 ml Balance -970 ml Height & Weight Height: 6'0.00" Weight: 217lbs. 4.0oz. 98.284368gn; 30.86 BMI Method:Stated General Appearance: No Apparent Distress, WD/WN HEENT: PERRL/EOMI, Normal ENT Inspection, Pharynx Normal Neck: Full Range of Motion, Normal Inspection, Non Tender, Supple Respiratory: No Accessory Muscle Use, No Respiratory Distress, Crackles (bilateral bases ) Cardiovascular: Irregularly Irregular, Tachycardia Capillary Refill: Less Than 3 Seconds Extremity: Normal Capillary Refill, Normal Inspection, Normal Range of Motion, Non Tender, Pedal Edema (BLE ) Neurologic/Psychiatric: Alert, Oriented x3, No Motor/Sensory Deficits, Normal Mood/Affect Skin: Normal Color, Warm/Dry Lymphatic: No Adenopathy Results Lab Laboratory Tests 10/31/21 12:13 11/01/21 04:52 Assessment/Plan Assessment/Plan ` JANY HARMAN MD Nov 01, 2021 11:02
[2021-11-01] MEDS ORDERED: MAGNESIUM 1 GM/100 ML IVPB 100 ML IV ONE (11:15)
--- NOTE | 2021-11-01 13:40 | Cardioversion ---
Cardioversion PROCEDURE PHYSICIAN: Xin Ramirez DATE OF PROCEDURE: 11/01/21 DIRECT EXTERNAL ELECTRICAL CARDIOVERSION: Indications: Atrial Fibrillation with rapid ventricular rate Preoperative diagnoses: Atrial Fibrillation with rapid ventricular rate Postoperative diagnosis: Sinus rhythm, Successful Electrical Cardioversion History: 61-year-old gentleman with paroxysmal atrial fibrillation, admitted for atrial fibrillation, received YASMEEN and cardioversion earlier this morning, patient returned to sinus rhythm then went back to atrial fibrillation. He was loaded with amiodarone bolus and a drip then he was scheduled for a second procedure to be done later that day. Anesthesia: By Anesthesia services Complications: None Specimen: None Contrast: 0 Flouroscopy: none Procedure Details: The patient was brought the micro lab analyst after informed consent was taken, all the risks and complications were explained including the risk of stroke. Electrical cardioversion was carried out with anesthesia support with propofol. 200 joules of synchronized shock was delivered, patient did not convert, a second shock was delivered with 200 J and it was successful in terminating atrial fibrillation. No complication noted Conclusions: Successful second attempt of cardioversion with 2 consecutive shocks after loading with amiodarone in terminating atrial fibrillation XIN RAMIREZ MD Nov 01, 2021 13:40
--- NOTE | 2021-11-01 14:01 | Anesthesia-General Post-Op ---
MAC Patient Condition Mental Status/LOC: Same as Preop Cardiovascular: Satisfactory Nausea/Vomiting: Absent Respiratory: Satisfactory Pain: Controlled Complications: Absent Post Op Complications Complications None Follow Up Care/Instructions Patient Instructions None needed. Anesthesiology Discharge Order Discharge Order Patient was doing well after the second cardioversion with no complaints and remained in sinus rhythm, stable vital signs, no apparent adverse anesthesia problems. No complications reported per nursing. SREEDHAR SALINAS 22, 2022 14:01
[2021-11-01] MEDS ORDERED: FUROSEMIDE 40 MG/4 ML INJ (LASIX) IVP ONE (14:45)
[2021-11-01] MEDS: dilTIAZem120 MG (CARDIZEM CD) CAP PO SCH (15:20)
[2021-11-01] MEDS: meTOproloL SUCCINATE 50 MG (TOPROL XL) TAB PO SCH (15:20)
[2021-11-01] MEDS: AMIODARONE 200 MG (CORDARONE) TAB PO SCH (20:03)
[2021-11-02] MEDS: ENOXAPARIN 100 MG/1 ML (LOVENOX) SYR SC SCH ×2 (01:40→12:41)
[2021-11-02] MEDS: CATHETER FLUSH 10 ML SYR IVP SCH ×3 (05:38→22:14)
[2021-11-02 06:10] LABS: BASOPHILS % (AUTO) 0 % (0-10); EOSINOPHILS # (AUTO) 0.3 10^3/uL (0.0-0.3); EOSINOPHILS % (AUTO) 2 % (0-10); HEMATOCRIT 44 % (40-54); HEMOGLOBIN 14.1 g/dL (13.3-17.7); LYMPHOCYTES # (AUTO) 1.9 10^3/uL (1.0-4.0); LYMPHOCYTES % (AUTO) 18 % (12-44); MEAN CORPUSCULAR HEMOGLOBIN 29 pg (25-34); MEAN CORPUSCULAR HGB CONC 32 g/dL (32-36); MEAN CORPUSCULAR VOLUME 91 fL (80-99); MEAN PLATELET VOLUME 10.9 fL (9.0-12.2); MONOCYTES # (AUTO) 0.8 10^3/uL (0.0-1.0); MONOCYTES % (AUTO) 8 % (0-12); NEUTROPHILS # (AUTO) 7.7 10^3/uL (1.8-7.8); NEUTROPHILS % (AUTO) 71 % (42-75); PLATELET COUNT 256 10^3/uL (130-400); WHITE BLOOD COUNT 10.7 10^3/uL (4.3-11.0)
[2021-11-02 06:27] LABS: POTASSIUM 3.6 MMOL/L (3.6-5.0)
[2021-11-02 06:28] LABS: CALCIUM 9.1 MG/DL (8.5-10.1)
[2021-11-02 06:32] LABS: CREATININE SERUM 0.89 MG/DL (0.60-1.30)
[2021-11-02] MEDS: inSUlin ASPART (NovoLOG) 1 UNIT/0.01 ML (CHARGE PER UNIT) SC SCH ×4 (06:45→22:14)
[2021-11-02] MEDS ORDERED: proPOfol 200 MG/20 ML (DIPRIVAN) VIAL IV ONE ×2 (07:38→09:15)
--- NOTE | 2021-11-02 07:59 | Anesthesia-General Post-Op ---
MAC Patient Condition Mental Status/LOC: Same as Preop Cardiovascular: Satisfactory Nausea/Vomiting: Absent Respiratory: Satisfactory Pain: Controlled Complications: Absent Post Op Complications Complications None Follow Up Care/Instructions Patient Instructions None needed. Anesthesiology Discharge Order Discharge Order Patient is doing well, no complaints, stable vital signs, no apparent adverse anesthesia problems. No complications reported per nursing. ISABELLA LEVI CRNA Nov 02, 2021 07:59
--- NOTE | 2021-11-02 08:07 | Cardioversion ---
Cardioversion PROCEDURE PHYSICIAN: Xin Ramirez DATE OF PROCEDURE: 11/02/21 DIRECT EXTERNAL ELECTRICAL CARDIOVERSION: Indications: Atrial Fibrillation with rapid ventricular rate Preoperative diagnoses: Atrial Fibrillation with rapid ventricular rate Postoperative diagnosis: Sinus rhythm, Successful Electrical Cardioversion History: 61-year-old gentleman with history of atrial fibrillation, underwent 2 cardioversions yesterday, he was loaded with amiodarone, started on oral amiodarone, went back to atrial fibrillation overnight. I decided to proceed with another cardioversion. Anesthesia: By Anesthesia services Complications: None Specimen: None Contrast: 0 Flouroscopy: none Procedure Details: The patient was brought the laboratory technician after informed consent was taken, all the risks and complications were explained including the risk of stroke. Electrical cardioversion was carried out with anesthesia support with propofol. 200 joules of synchronized shock was delivered through external patches which promptly restored sinus rhythm. The patient tolerated the procedure well. Conclusions: Successful electrical cardioversion in terminating atrial fibrillation XIN RAMIREZ MD Nov 02, 2021 08:07
--- NOTE | 2021-11-02 08:57 | Cardiology Progress Note ---
Subjective Date Seen by Provider: Nov 02, 2021 Time Seen by Provider: 08:55 Subjective/Events-last exam Patient was seen at bedside, laying down comfortably Went back to him last night, I did cardioversion again today on November 02, 2021 Review of Systems General: No Chills, No Night Sweats, No Fatigue, No Malaise, No Appetite, No Other HEENT: No Head Aches, No Visual Changes, No Eye Pain, No Ear Pain, No Dysphasia, No Sinus Congestion, No Post Nasal Drip, No Sore Throat, No Other Pulmonary: No Dyspnea, No Cough, No Pleuritic Chest Pain, No Other Cardiovascular: No: Chest Pain, Palpitations, Orthopnea, Paroxysmal Noc. D yspnea, Edema, Lt Headedness, Other Objective-Cardiology Exam Last Set of Vital Signs Vital Signs 10/31/21 11/02/21 11/02/21 11/02/21 11/02/21 14:18 06:00 07:45 08:09 08:15 Temp 35.9 Pulse 115 Resp 19 B/P (MAP) 124/85 Pulse Ox 96 O2 Delivery Room Air O2 Flow Rate 5.00 FiO2 21 I&O Intake and Output 11/02/21 00:00 Intake Total 725 ml Output Total 3400 ml Balance -2675 ml Intake Oral 525 ml IV Total 200 ml Output Urine Total 3400 ml # Bowel Movements 2 General: Alert, Oriented X3, Cooperative HEENT: Atraumatic, PERRLA Neck: Supple, No JVD, No Thyromegaly Lungs: Clear to Auscultation, Normal Air Movement Heart: Regular Rate, Normal S1, Normal S2, No Murmurs Abdomen: Normal Bowel Sounds, Soft, No Tenderness, No Hepatosplenomegaly, No Masses Extremities: No Clubbing, No Cyanosis, Normal Pulses, No Tenderness/Swelling, Other (+1 pedal edema) Skin: No Rashes, No Breakdown, No Significant Lesion Neuro: Normal Gait, Normal Speech, Strength at 5/5 X4 Ext, Normal Tone, Sensation Intact Psych/Mental Status: Mental Status NL, Mood NL Results Lab Laboratory Tests 11/02/21 05:24 A/P-Cardiology Admission Diagnosis Paroxysmal atrial fibrillation Peripheral edema Hypertension Hyperlipidemia Assessment/Plan Atrial fibrillation with rapid ventricular response Paroxysmal atrial fibrillation, patient has been maintained on Toprol-XL, digoxin and Cartia. YASMEEN was done showing normal LV size, ejection fraction 45%, dilated left atrium with smoke in the left atrium, no clot or thrombus was seen. Electrical cardioversion was delivered on November 01, 2021 at 9 AM and it was successful initially in terminating atrial fibrillation, later within 5-minute patient returned to atrial fibrillation. Received a second cardioversion on November 01, 2021 in the afternoon after loading with amiodarone. Overnight he went back to atrial fibrillation, I continued with loading with amiodarone and performed cardioversion again on November 02, 2021 Continue on oral amiodarone. Restarted Cartia and Toprol Peripheral edema, worsening edema with mild elevation in BNP. Probably acute left ventricular diastolic dysfunction secondary to atrial fibrillation with rapid ventricular response. Echocardiogram was done in October 2018. Showing normal LV size with EF 50 to 55% with grade 1 diastolic dysfunction left atrium 4.7 cm Continue on Lasix and monitor tolerance and response Hypertension, monitor blood pressure Coronary artery disease mild per cardiac catheterization in October 2009, small vessel disease nonobstructive disease, currently asymptomatic. Continue to monitor Hyperlipidemia, continue to monitor lipid History of depression and anxiety. Followed by [facility] Diabetes mellitus, followed and managed by [facility]. Tobaccoism, chewing tobacco, we discussed avoiding tobacco products Status post right knee replacement done on August 04, [address] Pelaez at [facility] XIN JOSHUA MD Nov 02, 2021 08:57
[2021-11-02] MEDS: FUROSEMIDE 20 MG (LASIX) TAB PO SCH (09:00)
[2021-11-02] MEDS ORDERED: FUROSEMIDE 40 MG/4 ML INJ (LASIX) IVP ONE (09:00)
[2021-11-02] MEDS: KCL 20 MEQ TAB (K-DUR) PO SCH (09:44)
[2021-11-02] MEDS: meTOproloL SUCCINATE 50 MG (TOPROL XL) TAB PO SCH (09:44)
[2021-11-02] MEDS: dilTIAZem120 MG (CARDIZEM CD) CAP PO SCH (09:44)
[2021-11-02] MEDS: AMIODARONE 200 MG (CORDARONE) TAB PO SCH ×2 (09:44→22:12)
[2021-11-02] MEDS ORDERED: KCL 20 MEQ TAB (K-DUR) PO SCH (09:45)
[2021-11-02] MEDS ORDERED: dilTIAZem120 MG (CARDIZEM CD) CAP PO ONE (10:30)
[2021-11-02] MEDS: RT--FLUTICASONE/SALMETEROL 113-14 (AIRDUO RespiCLICK) IH SCH ×2 (10:48→20:33)
[2021-11-02] MEDS: MAGNESIUM 1 GM/100 ML IVPB 100 ML IV SCH ×2 (10:56→12:42)
--- NOTE | 2021-11-02 11:40 | Tele-ICU Progress Note ---
Subjective Date Seen by a Provider: Nov 02, 2021 Time Seen by a Provider: 11:39 Subjective/Events-last exam (Tele-ICU Physician , Progress Note ) Available chart/ vitals / labs / Images reviewed Video assessment done using teleICU camera, rest of exam as per RN Discussed with RN , EXAM PER RN Events overnight : Afebrile FiO2 - 2 l I/O = even Drips: Pressors: , hemodynamically stable Discussed with RN. Consultants: Hospital course: -: 61 y/o M - A Fib RVR - CHF - Cardizem Drip. 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 EF 50 to 55% with grade 1 diastolic dysfunction DM II -ISS Hypoxia - 2 l NC COPD ? vs asthma - will start long acting ICS/LABA and will change nebs to prn since no severe br-spasm - RO REASSESS BY PCP NEED / CHOICE OF MEDS Lines : (Central Line Necessity Reviewed) [place]: void OG: Nutrition: Analgesia: Anxiety/ delirium VTE Prophylaxis: cb full Stress Ulcer Prophylaxis: ppi Plans in collaboration with bedside consultants and IM MDs. Discussed with RN to reach out if any questions or concerns A total of 25 minutes of critical care time was devoted to this patient today, required to treat and/or prevent further deterioration of critical care condition ( as above ) . Sepsis Event Evaluation Height, Weight, BMI Height: 6'0.00" Weight: 217lbs. 4.0oz. [id number]; 30.86 BMI Method:Stated Exam Exam Patient acknowledged, consented, and participated in this virtual visit which was conducted using real time audio/video Vital Signs Date Time Temp Pulse Resp B/P (MAP) Pulse Ox O2 Delivery O2 Flow Rate FiO2 11/02/21 11:00 112 14 138/93 96 Room Air 11/02/21 10:48 94 Room Air 11/02/21 10:00 107 20 118/87 94 Room Air 11/02/21 09:00 109 19 109/91 94 Room Air 11/02/21 08:15 Room Air 11/02/21 08:09 35.9 11/02/21 08:00 79 17 114/77 97 Nasal Cannula 5.00 11/02/21 07:45 Nasal Cannula 5.00 11/02/21 07:00 106 20 129/95 95 Room Air 11/02/21 07:00 121 11/02/21 06:00 115 19 124/85 96 Room Air 11/02/21 05:00 125 20 136/99 94 Room Air 11/02/21 04:00 36.1 11/02/21 04:00 112 20 139/104 94 Room Air 11/02/21 04:00 Room Air 11/02/21 03:00 110 20 130/95 94 Room Air 11/02/21 02:00 123 19 130/95 94 Room Air 11/02/21 01:00 110 11/02/21 01:00 110 21 119/93 89 Room Air 11/02/21 00:00 120 17 98/69 91 Room Air 11/02/21 00:00 36.3 11/01/21 23:39 Room Air 11/01/21 23:00 114 22 128/98 93 Room Air 11/01/21 22:00 103 18 119/79 94 Room Air 11/01/21 21:00 115 21 134/104 98 Room Air 11/01/21 20:00 95 Room Air 11/01/21 20:00 122 21 135/102 92 Room Air 11/01/21 19:49 36.4 11/01/21 19:00 108 13 114/87 97 Room Air 11/01/21 19:00 108 11/01/21 18:27 96 Room Air 11/01/21 17:00 117 25 147/92 95 Nasal Cannula 2.00 11/01/21 16:33 96 Room Air 11/01/21 16:00 36.1 11/01/21 16:00 87 9 134/70 96 Nasal Cannula 2.00 11/01/21 15:00 85 24 121/82 96 Nasal Cannula 2.00 11/01/21 14:00 83 19 122/97 96 Nasal Cannula 2.00 11/01/21 13:00 79 11 130/83 96 Nasal Cannula 2.00 11/01/21 12:30 Nasal Cannula 2.00 11/01/21 12:19 71 11/01/21 12:00 113 25 125/92 97 Nasal Cannula 2.00 I & O 11/02/21 06:59 Intake Total 675 ml Output Total 2500 ml Balance -1825 ml Height & Weight Height: 6'0.00" Weight: 217lbs. 4.0oz. 98.588496uz; 30.86 BMI Method:Stated General Appearance: No Apparent Distress, Obese HEENT: PERRL/EOMI, Pharynx Normal Neck: Normal Inspection, Supple Respiratory: Lungs Clear, Normal Breath Sounds, No Respiratory Distress Cardiovascular: No Murmur, Irregularly Irregular, Tachycardia Capillary Refill: Less Than 3 Seconds Extremity: Normal Inspection, Non Tender, Pedal Edema Neurologic/Psychiatric: Alert, Oriented x3, No Motor/Sensory Deficits, Normal Mood/Affect Skin: Normal Color, Warm/Dry Lymphatic: No Adenopathy Results Lab Laboratory Tests 10/31/21 12:13 11/01/21 04:52 11/02/21 05:24 Assessment/Plan Assessment/Plan ` JANY HARMAN MD Nov 02, 2021 11:40
[2021-11-02] MEDS ORDERED: KCL 20 MEQ TAB (K-DUR) PO ONE (12:00)
[2021-11-02] MEDS ORDERED: dilTIAZem120 MG (CARDIZEM CD) CAP PO NR (18:30)
[2021-11-02] MEDS ORDERED: ZOLPIDEM 5 MG (AMBIEN) TAB PO NR (19:00)
--- NOTE | 2021-11-02 20:54 | Progress Note - Hospitalist ---
Subjective HPI/CC On Admission Date Seen by Provider: Nov 02, 2021 Time Seen by Provider: 09:00 Gee Engle is a 61 year old male with PMH HTN, T2DM, HLD, CAD, AFib, tobacco abuse, who presented with shortness of breath. He also reports lower extremity swelling. He was evaluated at his PCP office and sent to the ER. He was found to be in AFib with RVR. He denies chest pain. He reports palpitations. He denies fever and chills. He denies cough. He denies abdominal pain. He denies nausea and vomiting. He reports compliance with his medications. Subjective/Events-last exam He is sitting in his chair. He still has some swelling. He is feeling better. He denies chest pain. He denies palpitations. Objective Exam Vital Signs Vital Signs Date Time Temp Pulse Resp B/P (MAP) Pulse Ox O2 Delivery O2 Flow Rate FiO2 11/02/21 20:33 97 Room Air 11/02/21 19:00 90 11/02/21 18:00 28 118/92 11/02/21 16:31 36.1 11/02/21 08:00 5.00 10/31/21 14:18 21 Capillary Refill : Less Than 3 Seconds General Appearance: No Apparent Distress, WD/WN Respiratory: No Respiratory Distress, Decreased Breath Sounds Cardiovascular: Irregularly Irregular, Tachycardia Gastrointestinal: Normal Bowel Sounds, Non Tender, Soft Extremity: Normal Inspection, Pedal Edema Neurologic/Psychiatric: Alert, Normal Mood/Affect Skin: Normal Color, Warm/Dry Results/Procedures Lab Laboratory Tests 11/02/21 05:24 Patient resulted labs reviewed. Imaging: Reviewed Imaging Report Assessment/Plan Assessment and Plan Assess & Plan/Chief Complaint AFib with RVR Acute HFpEF HTN HLD CAD Cardiology following Home meds: Digoxin, Metoprolol, Diltiazem, Xarelto s/p cardioversion x3 IV Amiodarone, transition to oral Therapeutic Lovenox Continue oral metoprolol and diltiazem Lasix T2DM Sliding scale insulin Tobacco abuse Recommend cessation Diagnosis/Problems Diagnosis/Problems (1) Atrial fibrillation with RVR Status: Acute (2) Acute heart failure with preserved ejection fraction (HFpEF) Status: Acute PALMIRA ANDREA MD Nov 02, 2021 20:54
[2021-11-02] MEDS: ACETAMINOPHEN 325 MG TABLET PO PRN (22:13)
[2021-11-03] MEDS: ENOXAPARIN 100 MG/1 ML (LOVENOX) SYR SC SCH (01:32)
[2021-11-03 03:59] LABS: BASOPHILS % (AUTO) 0 % (0-10); EOSINOPHILS # (AUTO) 0.2 10^3/uL (0.0-0.3); EOSINOPHILS % (AUTO) 2 % (0-10); HEMATOCRIT 44 % (40-54); LYMPHOCYTES # (AUTO) 2.4 10^3/uL (1.0-4.0); LYMPHOCYTES % (AUTO) 19 % (12-44); MEAN CORPUSCULAR HEMOGLOBIN 29 pg (25-34); MEAN CORPUSCULAR HGB CONC 32 g/dL (32-36); MEAN CORPUSCULAR VOLUME 92 fL (80-99); MEAN PLATELET VOLUME 11.1 fL (9.0-12.2); MONOCYTES % (AUTO) 8 % (0-12); NEUTROPHILS # (AUTO) 8.8 10^3/uL (1.8-7.8); NEUTROPHILS % (AUTO) 71 % (42-75); PLATELET COUNT 278 10^3/uL (130-400); WHITE BLOOD COUNT 12.4 10^3/uL (4.3-11.0)
[2021-11-03 04:15] LABS: POTASSIUM 3.8 MMOL/L (3.6-5.0)
[2021-11-03 04:21] LABS: CREATININE SERUM 1.09 MG/DL (0.60-1.30)
[2021-11-03] MEDS ORDERED: POTASSIUM CL 10MEQ/50ML IVPB 50 ML IV SCH (06:00)
[2021-11-03] MEDS ORDERED: MAGNESIUM 1 GM/100 ML IVPB 100 ML IV SCH (06:00)
[2021-11-03] MEDS: inSUlin ASPART (NovoLOG) 1 UNIT/0.01 ML (CHARGE PER UNIT) SC SCH ×3 (06:50→17:36)
[2021-11-03] MEDS: CATHETER FLUSH 10 ML SYR IVP SCH ×2 (06:50→17:36)
[2021-11-03] MEDS: RT--FLUTICASONE/SALMETEROL 113-14 (AIRDUO RespiCLICK) IH SCH (07:23)
[2021-11-03] MEDS: meTOproloL SUCCINATE 50 MG (TOPROL XL) TAB PO SCH (07:58)
[2021-11-03] MEDS: FUROSEMIDE 20 MG (LASIX) TAB PO SCH (07:58)
[2021-11-03] MEDS: AMIODARONE 200 MG (CORDARONE) TAB PO SCH (07:58)
[2021-11-03] MEDS: KCL 20 MEQ TAB (K-DUR) PO SCH (07:59)
--- NOTE | 2021-11-03 12:07 | Tele-ICU Progress Note ---
Subjective Date Seen by a Provider: Nov 03, 2021 Time Seen by a Provider: 09:51 Subjective/Events-last exam (Tele-ICU Physician , Progress Note ) Available chart/ vitals / labs / Images reviewed Video assessment done using teleICU camera, rest of exam as per RN Discussed with RN , EXAM PER RN Events overnight : Afebrile FiO2 - 2 l I/O = neg Drips: Pressors: , hemodynamically stable Discussed with RN. Consultants: Hospital course: -: 61 y/o M - A Fib RVR - CHF - Cardizem Drip. 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 EF 50 to 55% with grade 1 diastolic dysfunction DM II -ISS Hypoxia - 2 l NC COPD ? vs asthma - will start long acting ICS/LABA and will change nebs to prn since no severe br-spasm - RO REASSESS BY PCP NEED / CHOICE OF MEDS Lines : (Central Line Necessity Reviewed) [place]: void OG: Nutrition: Analgesia: Anxiety/ delirium VTE Prophylaxis: cb full Stress Ulcer Prophylaxis: ppi Plans in collaboration with bedside consultants and IM MDs. Discussed with RN to reach out if any questions or concerns A total of 25 minutes of critical care time was devoted to this patient today, required to treat and/or prevent further deterioration of critical care condition ( as above ) . Sepsis Event Evaluation Height, Weight, BMI Height: 6'0.00" Weight: 217lbs. 4.0oz. 98.905925jv; 30.86 BMI Method:Stated Exam Exam Patient acknowledged, consented, and participated in this virtual visit which was conducted using real time audio/video Vital Signs Date Time Temp Pulse Resp B/P (MAP) Pulse Ox O2 Delivery O2 Flow Rate FiO2 11/03/21 11:51 36.4 11/03/21 11:00 87 28 111/79 95 Room Air 11/03/21 10:00 96 17 118/71 95 Room Air 11/03/21 09:00 93 23 114/76 95 Room Air 11/03/21 08:00 101 27 109/81 95 Room Air 11/03/21 08:00 Room Air 11/03/21 07:49 36.2 11/03/21 07:23 95 Room Air 11/03/21 07:00 107 15 112/77 95 Room Air 11/03/21 07:00 81 11/03/21 06:00 107 23 112/82 93 Room Air 11/03/21 05:00 101 17 112/76 91 Room Air 11/03/21 04:00 89 23 91/65 91 Room Air 11/03/21 04:00 Room Air 11/03/21 03:00 112 18 113/81 92 Room Air 11/03/21 02:00 83 18 108/75 90 Room Air 11/03/21 01:00 90 11/03/21 01:00 106 12 89/59 90 Room Air 11/03/21 00:00 Room Air 11/03/21 00:00 106 21 93/68 90 Room Air 11/02/21 23:00 89 21 99/67 91 Room Air 11/02/21 22:00 96 18 135/57 95 Room Air 11/02/21 21:00 102 19 115/94 95 Room Air 11/02/21 20:33 97 Room Air 11/02/21 20:00 97 21 122/88 96 Room Air 11/02/21 20:00 Room Air 11/02/21 19:00 86 13 115/84 95 Room Air 11/02/21 19:00 90 11/02/21 18:00 102 28 118/92 93 Room Air 11/02/21 17:00 95 21 117/91 96 Room Air 11/02/21 16:31 36.1 11/02/21 16:00 Room Air 11/02/21 15:00 107 26 105/82 94 Room Air 11/02/21 14:00 103 22 114/82 94 Room Air 11/02/21 13:27 36.2 11/02/21 13:00 110 11/02/21 13:00 96 32 112/79 96 Room Air I & O 11/03/21 07:00 Intake Total 2060 ml Output Total 3250 ml Balance -1190 ml Height & Weight Height: 6'0.00" Weight: 217lbs. 4.0oz. 98.947136tg; 30.86 BMI Method:Stated General Appearance: No Apparent Distress, WD/WN HEENT: PERRL/EOMI, Pharynx Normal Neck: Normal Inspection, Supple Respiratory: No Respiratory Distress, Decreased Breath Sounds Cardiovascular: Irregularly Irregular, Tachycardia Capillary Refill: Less Than 3 Seconds Extremity: Normal Inspection, Pedal Edema Neurologic/Psychiatric: Alert, Normal Mood/Affect Skin: Normal Color, Warm/Dry Lymphatic: No Adenopathy Results Lab Laboratory Tests 11/02/21 05:24 11/03/21 03:16 Assessment/Plan Assessment/Plan 1 JANY HARMAN MD Nov 03, 2021 12:07
--- NOTE | 2021-11-03 12:21 | Cardiology Progress Note ---
Subjective Date Seen by Provider: Nov 03, 2021 Time Seen by Provider: 12:16 Subjective/Events-last exam Patient was seen at bedside, sitting comfortably, was borderline tachycardic this morning, I changed his Cardizem dose Review of Systems General: No Chills, No Night Sweats, No Fatigue, No Malaise, No Appetite, No Other HEENT: No Head Aches, No Visual Changes, No Eye Pain, No Ear Pain, No Dysphasia, No Sinus Congestion, No Post Nasal Drip, No Sore Throat, No Other Pulmonary: No Dyspnea, No Cough, No Pleuritic Chest Pain, No Other Cardiovascular: No: Chest Pain, Palpitations, Orthopnea, Paroxysmal Noc. Dyspnea, Edema, Lt Headedness, Other Objective-Cardiology Exam Last Set of Vital Signs Vital Signs 10/31/21 11/02/21 11/03/21 11/03/21 14:18 08:00 11:00 11:51 Temp 36.4 Pulse 87 Resp 28 B/P (MAP) 111/79 Pulse Ox 95 O2 Delivery Room Air O2 Flow Rate 5.00 FiO2 21 I&O Intake and Output 11/03/21 00:00 Intake Total 1310 ml Output Total 2525 ml Balance -1215 ml Intake Oral 1310 ml Output Urine Total 2525 ml # Bowel Movements 1 General: Alert, Oriented X3, Cooperative HEENT: Atraumatic, PERRLA Neck: Supple, No JVD, No Thyromegaly Lungs: Clear to Auscultation, Normal Air Movement Heart: Normal S1, Normal S2, No Murmurs, Other Abdomen: Normal Bowel Sounds, Soft, No Tenderness, No Hepatosplenomegaly, No Masses Extremities: No Clubbing, No Cyanosis, Normal Pulses, No Tenderness/Swelling, Other (+1 pedal edema) Skin: No Rashes, No Breakdown, No Significant Lesion Neuro: Normal Gait, Normal Speech, Strength at 5/5 X4 Ext, Normal Tone, Sensation Intact Psych/Mental Status: Mental Status NL, Mood NL Results Lab Laboratory Tests 11/03/21 03:16 A/P-Cardiology Admission Diagnosis Paroxysmal atrial fibrillation Peripheral edema Hypertension Hyperlipidemia Assessment/Plan WithAtrial fibrillation with rapid ventricular response Paroxysmal atrial fibrillation, patient has been maintained on Toprol-XL, digoxin and Cartia. Underwent YASMEEN a total of 3 cardioversions on June 03 at 9 AM and then at 12:30 PM then June 04 at 9 AM and in every episode he returned to sinus rhythm for a while then converted back to atrial fibrillation Patient was loaded with amiodarone bolus and a drip. At this point I am switching the management to trying to achieve adequate rate control. Currently on metoprolol XL 50 mg mg daily, amiodarone 400 mg twice daily, I increased Cardizem to 480 mg daily and he was receiving digoxin which will be held at this point. Heart rate is starting to become more stable. I will continue to monitor closely [id number] score 2, started on Eliquis. Continue to monitor Peripheral edema, worsening edema with mild elevation in BNP. Probably acute left ventricular diastolic dysfunction secondary to atrial fibrillation with rapid ventricular response. Echocardiogram was done in October 2018. Showing normal LV size with EF 50 to 55% with grade 1 diastolic dysfunction left atrium 4.7 cm Continue on Lasix and monitor tolerance and response Hypertension, monitor blood pressure Coronary artery disease mild per cardiac catheterization in October 2009, small vessel disease nonobstructive disease, currently asymptomatic. Continue to monitor Hyperlipidemia, continue to monitor lipid History of depression and anxiety. Followed by [facility] Diabetes mellitus, followed and managed by [facility]. Tobaccoism, chewing tobacco, we discussed avoiding tobacco products Status post right knee replacement done on August 04, [address] Pelaez at [facility] XIN JOSHUA MD Nov 03, 2021 12:21
[2021-11-03] MEDS ORDERED: DILT240C91 PO (16:43)
[2021-11-03] MEDS ORDERED: AMIO200T65 PO (16:43)
[2021-11-03] MEDS ORDERED: APIXABAN 5 MG (ELIQUIS) TABLET PO SCH (21:00)
--- NOTE | 2021-11-03 21:49 | Discharge Summary ---
Discharge Summary Hospital Course Problems/Dx: (1) Atrial fibrillation with RVR Status: Acute (2) Acute heart failure with preserved ejection fraction (HFpEF) Status: Acute Hospital Course Date of Admission: Nov 02, 2021 at 11:57 Admission Diagnosis : AFib with RVR, Acute HFpEF Family Physician/Provider: Marylou Ford DO Date of Discharge: 11/03/21 Discharge Diagnosis: AFib with RVR, Acute HFpEF Hospital Course: Marylou Engle is a 61 year old male who was admitted with AFib with RVR. He has a history of AFib and was on Cartia, Digoxin, Metoprolol, and Xarelto at home. Cardiology was consulted and assisted with his care. He was treated with IV Cardizem. He underwent a YASMEEN cardioversion which returned him to sinus rhythm briefly. He was given an Amiodarone bolus and then underwent another cardioversion which again returned him to normal sinus rhythm briefly. He was continued on an Amiodarone load and then underwent another cardioversion which was again unable to successfully keep him in normal sinus rhythm. His Cartia was increased. His Digoxin was stopped. He was continued on Metoprolol. He will continue on Amiodarone. He was continued on Xarelto. He should follow up with his PCP and Cardiology as scheduled. He was discharged home in stable condition. Labs and Pending Lab Test: Laboratory Tests 11/02/21 22:07: Glucometer 205H 11/03/21 03:16: White Blood Count 12.4H, Red Blood Count 4.82, Hemoglobin 14.0, Hematocrit 44, Mean Corpuscular Volume 92, Mean Corpuscular Hemoglobin 29, Mean Corpuscular Hemoglobin Concent 32, Red Cell Distribution Width 12.5, Platelet Count 278, Mean Platelet Volume 11.1, Immature Granulocyte % (Auto) 0, Neutrophils (%) (Auto) 71, Lymphocytes (%) (Auto) 19, Monocytes (%) (Auto) 8, Eosinophils (%) (Auto) 2, Basophils (%) (Auto) 0, Neutrophils # (Auto) 8.8H, Lymphocytes # (Auto) 2.4, Monocytes # (Auto) 1.0, Eosinophils # (Auto) 0.2, Basophils # (Auto) 0.0, Immature Granulocyte # (Auto) 0.1, Sodium Level 134L, Potassium Level 3.8, Chloride Level 99, Carbon Dioxide Level 23, Anion Gap 12, Blood Urea Nitrogen 18, Creatinine 1.09, Estimat Glomerular Filtration Rate 77, BUN/Creatinine Ratio 17, Glucose Level 215H, Calcium Level 9.0 11/03/21 10:20: Glucometer 338H 11/03/21 16:58: Glucometer 218H Microbiology 10/31/21 MRSA Screen - Final, Complete MRSA not isolated Home Meds Active Amiodarone HCl 200 Mg Tablet 200 Mg PO UD Take 2 tablets twice daily for 2 weeks then Take 1 tablet twice daily Diltiazem 24Hr ER (Diltiazem HCl) 240 Mg Cap.er.24h 480 Mg PO DAILY Reported Trulicity (Dulaglutide) 1.5 Mg/0.5 Ml Pen.injctr 0.75 Mg SQ SUN Xarelto (Rivaroxaban) 20 Mg Tablet 20 Mg PO HS Ibuprofen 200 Mg Capsule 400 Mg PO Q8H PRN Tylenol Extra Strength (Acetaminophen) 500 Mg Tablet 1,000 Mg PO Q8H PRN Pantoprazole Sodium 40 Mg Tablet.dr 40 Mg PO DAILY Meloxicam 7.5 Mg Tablet 7.5 Mg PO DAILY Terbinafine HCl 250 Mg Tablet 250 Mg PO DAILY Metoprolol Succinate 50 Mg Tab.er.24h 50 Mg PO HS Multivitamins (Multivitamin) 1 Each Tablet 1 Each PO DAILY Metformin HCl 1,000 Mg Tablet 1,000 Mg PO BID Assessment/Pt Instructions See instructions Discharge Planning: <30 minutes discharge planning Discharge Instructions Discharge Diet: Low Sodium Diet Activity as Tolerated: Yes Consultations CArdiology Discharge Physical Examination Vital Signs Vital Signs Date Time Temp Pulse Resp B/P (MAP) Pulse Ox O2 Delivery O2 Flow Rate FiO2 11/03/21 18:00 99 24 111/82 91 Room Air 11/03/21 11:51 36.4 11/02/21 08:00 5.00 10/31/21 14:18 21 General Appearance: No Apparent Distress, Obese Respiratory: Lungs Clear, No Respiratory Distress Cardiovascular: No Murmur, Irregularly Irregular Gastrointestinal: Normal Bowel Sounds, Soft Extremity: Non Tender, Pedal Edema Skin: Normal Color, Warm/Dry Neurologic/Psychiatric: Alert, Normal Mood/Affect Allergies: Coded Allergies: sitagliptin (Verified Allergy, Unknown, 08/20/16) Copy Copies To 1: MARYLOU FORD DO Discharge Summary Date of Admission Nov 02, 2021 at 11:57 Date of Discharge Nov 03, 2021 at 19:20 Discharge Date: Nov 03, 2021 Discharge Time: 19:20 Admission Diagnosis AFib with RVR Consults/Procedures Consulations Cardiology Procedures Cardioversion Discharge Diagnosis AFib with RVR Acute HFpEF (1) Atrial fibrillation with RVR Status: Acute (2) Acute heart failure with preserved ejection fraction (HFpEF) Status: Acute PALMIRA ANDREA MD Nov 03, 2021 21:49
== END 2021-11-03 19:20 | disposition home or self-care (01) | DRG 308 ==
LOC: EDUNIT# 11:57 → ER 11:59 → ICU 13:10 → OBSVTOIN 11-02 11:57
PROVIDERS: ADMIT Internal Medicine; ATTEND Internal Medicine
PROC: 5A2204Z Restoration of Cardiac Rhythm, Single (ICD-10-PCS; 2021-11-01)
PROC: 5A2204Z Restoration of Cardiac Rhythm, Single (ICD-10-PCS; 2021-11-01)
PROC: 5A2204Z Restoration of Cardiac Rhythm, Single (ICD-10-PCS; principal; 2021-11-02)
DX: I48.0 Paroxysmal atrial fibrillation (principal); I50.31 Acute diastolic (congestive) heart failure; I11.0 Hypertensive heart disease with heart failure; E11.9 Type 2 diabetes mellitus without complications; F32.A Depression, unspecified; F41.9 Anxiety disorder, unspecified; R09.02 Hypoxemia; E78.00 Pure hypercholesterolemia, unspecified; M19.90 Unspecified osteoarthritis, unspecified site; K21.9 Gastro-esophageal reflux disease without esophagitis; I08.1 Rheumatic disorders of both mitral and tricuspid valves; F17.220 Nicotine dependence, chewing tobacco, uncomplicated; Z79.84 Long term (current) use of oral hypoglycemic drugs; Z79.899 Other long term (current) drug therapy; Z96.651 Presence of right artificial knee joint
CPT/HCPCS: 36415; 71045; 80048; 80053; 82947; 83735; 83874; 83880; 84484; 85025; 85379; 85610; 85730; 87081; 93005; 93041; 93312; 93320; 93325; 94640; 94760; G0378

== ENCOUNTER → 2021-12-29 | Outpatient (CLI) | payer MEDICARE ==
[~2021-12-29] MED LIST changes: +ACET-2267 PO; +AMIO200T65 PO; +DILT-27 PO; +DILT240C91 PO; +DULA1.5P2 SQ; +IBUP-2185 PO; +MELO7.5T46 PO; +PANT40TA52 PO; +RIVA20TA PO; +TERB250T88 PO
== END ==
LOC: CARD 13:36
PROVIDERS: ATTEND Internal Medicine Cardiovascular Disease
DX: I25.10 Atherosclerotic heart disease of native coronary artery without angina pectoris (principal)
CPT/HCPCS: 93306

== ENCOUNTER → 2022-01-10 | Outpatient (CLI) | payer MEDICARE ==
[~2022-01-10] VITALS: Ht 182 cm; Wt 99.0 kg
[~2022-01-10] MED LIST changes: +REGADENOSON 0.4 MG/5 ML SYR (LEXISCAN) IV ONE
[2022-01-10] MEDS: CATHETER FLUSH 10 ML SYR IVP PRN ×2 (12:31→13:45)
[2022-01-10 13:40] VITALS: BP 139/92
--- NOTE | 2022-01-10 17:12 | Cardiology Stress Test Report ---
Stress Test Report Date of Procedure/Referring: Date of Procedure: Jan 10, 2022 PCP Marylou Ford DO Admitting Physician Admitting Physician: Attending Physician: Miriam Ramirez MD Indications: CP Baseline Heart Rate: 82 Baseline Blood Pressure: Blood Pressure Systolic: 139 Blood Pressure Diastolic: 92 Baseline Vitals Vital Signs Date Time Temp Pulse Resp B/P (MAP) Pulse Ox O2 Delivery O2 Flow Rate FiO2 01/10/22 13:40 76 16 139/92 (108) 98 Room Air Baseline EKG: Baseline EKG: Atrial fibrillation Summary After explaining the procedure to the patient, he signed a consent and then brought to the stress nuclear laboratory. Patient received 0.4 mg Lexiscan for stress test, ECG, heart rate and blood pressure were monitored continuously. Resting and stress dose of radio tracer were injected, imaging was acquired and reviewed in short axis, horizontal long axis and vertical long axis views. TID: 1.04 SSS: 0 SDS: 0 EF: 43 1. Patient tolerated Lexiscan well 2. Baseline atrial fibrillation persisted during test 3. No significant ischemia or infarction on SPECT images 4. Diffuse left ventricular hypokinesia with ejection fraction 43%, gated images are unreliable in atrial fibrillation condition. Copy Copies To 1: MARYLOU FORD BASHAR J MD Jan 10, 2022 17:12
== END ==
LOC: CARD 12:18
PROVIDERS: ATTEND Internal Medicine Cardiovascular Disease
DX: I25.10 Atherosclerotic heart disease of native coronary artery without angina pectoris (principal); I10 Essential (primary) hypertension; I48.20 Chronic atrial fibrillation, unspecified
CPT/HCPCS: 78452; 93017; A9502

== ENCOUNTER → 2023-04-22 | Outpatient (CLI) | payer MEDICARE ==
[~2023-04-22] MED LIST changes: +CELE-112 PO; -CELE100C84 PO; -REGADENOSON 0.4 MG/5 ML SYR (LEXISCAN) IV ONE
== END ==
LOC: CARD 08:30
PROVIDERS: ATTEND Internal Medicine Cardiovascular Disease
DX: I11.9 Hypertensive heart disease without heart failure (principal); I34.0 Nonrheumatic mitral (valve) insufficiency; I25.10 Atherosclerotic heart disease of native coronary artery without angina pectoris
CPT/HCPCS: 93306